=== PATIENT | male | born 2000 | race Caucasian/White ===

== ENCOUNTER 2023-10-07 23:37 | Inpatient (IN) | payer OTHER, SELFPAY ==
[2023-10-07 23:49] VITALS: BP 110/78; BP 150/94; PULSE 110; PULSE 95; RESP 16; TEMP 37.6; O2SAT 98; BMI 31.2
[2023-10-08 00:02] VITALS: RESP 16
[2023-10-08] MEDS: OLANZapine ODT 10 MG TAB.RAPDIS TRANSLINGU ×2 (00:03→14:30)
[2023-10-08] MEDS: LORazepam 1 MG TABLET 2 MG PO ×3 (00:03→20:54)
--- NOTE | 2023-10-08 00:07 | ED.PSYCH ---
HPI - Psych General Chief Complaint: Psychiatric Symptoms Stated Complaint: SEC 12, SI Time Seen by Provider: 10/07/23 23:44 Source: patient and EMS Mode of arrival: EMS Limitations: other (will not cooperate) History of Present Illness HPI Narrative: 23 yo male was at his girlfriends - came in naked after being in her closet for 3 hours and she had to coax him out he was naked and hiding. He is not talking much just makes weird smiling faces and yes or no then takes deep breaths and repeatedly looks over to the corner in the right when he is asked questions. EMS notes he has bipolar and prior SI attempts. MD complaint: other Onset (ago): hour(s) (3) Duration: constant History of same: Yes Relieving factors: none Exacerbating factors: other Associated psychiatric symptoms: none Associated symptoms: denies other symptoms Treatments prior to arrival: none Related Data Allergies Allergy/AdvReac Type Severity Reaction Status Date / Time No Known Allergies Allergy Verified 10/07/23 23:59 Review of Systems Review of Systems: ROS unable to be obtained due to patient not answering questions [facility] Past Medical History Medical History Bipolar 1 disorder Social History Social History Unable to assess alcohol history related to: Refusing to respond Use of substances other than those prescribed or required for medical reasons: Refusing to respond Physical Exam Vital Signs: Vital Signs: Last Vital Signs Temp 99.6 F 10/07/23 23:49 Pulse 95 10/07/23 23:49 Resp 16 10/08/23 00:02 BP 150/94 H 10/07/23 23:49 Pulse Ox 98 10/07/23 23:49 O2 Del Method Room Air 10/07/23 23:49 BMI result Body Mass Index 31.2 Appearance: Alert. will not answer questions nods head says yes or no sometimes, makes strange faces smiles then looks off to the right corner of the room repeatedly. No acute distress. Eyes: Pupils equal, round and reactive to light. ENT: Pharynx normal. atraumatic Neck: Normal inspection. Neck supple. CVS: Normal heart rate and rhythm. Pulses normal. Respiratory: No respiratory distress. Breath sounds normal. Abdomen: Soft and non-tender. Skin: Skin warm and dry. Normal skin color. Normal skin turgor. Extremities: No lower extremity edema. No calf ttp Neuro: will not participate in exam cannot obtain CN exam. moves all extremities equally and bilaterally Course Course Course Narrative: Physician observation started at 1210am Patient placed in physician observation because the patient needed more time for CARE team to assess the need for psych admission. At the time observation was started the patient's vitals were stable, patient is not participating in exam, Neuro: nonfocal, CV RRR, Lungs clear Reevaluation(s) Reevaluation #1: labs pending on sign out to Dr. Willis Medications Administered Discontinued Medications Generic Name Dose Route Start Last Admin Trade Name Freq PRN Reason Stop Dose Admin Lorazepam 2 mg 10/07/23 23:59 10/08/23 00:03 Lorazepam 1 Mg Tablet PO 10/08/23 00:00 2 mg ONCE ONE Administration Olanzapine 10 mg 10/07/23 23:59 10/08/23 00:03 Olanzapine Odt 10 Mg Tab.Rapdis TRANSLINGU 10/08/23 00:00 10 mg ONCE ONE Administration Medical Decision Making Medical Decision Making [facility] Narrative: 23 yo male with hx of bipolar disorder here agitated came in naked after hiding in girlfriends closet at this time will need labs, drug screen PO zyprexa and ativan he appears agitated and to be responding to internal stimuli will medically clear then refer to CARE team. Differential Diagnosis Differential Diagnoses: The differential diagnosis associated with the presentation includes bipolar, psychosis, drug abuse Admission/Observation Consideration of admission/observation: Escalation of care including admission/observation considered observe until seen by CARE team Lab Data [facility] Lab Attestation statement: I reviewed the patient's lab results. Independent Historian Clinical information obtained from an independent historian. History obtained from or confirmed by: EMS Discharge Plan Discharge Clinical Impression: Psychosis Qualifiers: Psychosis type: unspecified psychosis type Qualified Code(s): F29 - Unspecified psychosis not due to a substance or known physiological condition Patient Disposition: Still a Patient Interventions: [place]-Suicide Risk Severity Scale Last Done: 10/07/23 23:58
--- NOTE | 2023-10-08 00:08 | PC.NURSE ---
Pt comes in from [facility] where his girlfriend is residing. Pt is from [facility]. Per EMS, patient was hiding naked in a closet in his girlfriend's dorm for about 3 hours. His girlfriend was attempting to get him out and decided to call 911 to help. Pt arrived to the ED on Sec. 12, naked on EMS stretcher. Pt has bizarre affect, appears to be responding to internal stimuli, consistently looking over to one corner in the room, smirking and making odd gestures. Pt is currently laying on bed in 3, playing with fidget toy. Pt willingly took 2mg Ativan and OTD Zyprexa with some coaching from this RN. Respirations even and unlabored, no apparent distress at this time. Will hold off on blood work until patient is calmer and actions more controlled
[2023-10-08 01:06] LABS: MANUAL DIFF FLAG NO
[2023-10-08 01:08] LABS: Basophils Percent Auto 0.3 % (0-2); Eosinophils Percent Auto 0.2 % (0-4); Hematocrit 41.5 % (42.0-52.0); Hemoglobin 14.3 g/dl (14.0-18.0); Imm Gran Abs Auto 0.03 X10*3/uL (0.00-0.03); Imm Gran Pct Auto 0.3 % (0.0-0.4); Lymphocytes Absolute Auto 2.9 X10*3/uL (1.2-4.9); Lymphocytes Percent Auto 24.9 % (20-40); Mean Corpuscular HGB Conc 34.5 g/dl (31.0-36.0); Mean Corpuscular Hemoglobin 29.3 pg (27.0-33.0); Monocytes Absolute Auto 1.2 X10*3/uL (0.1-1.2); Monocytes Percent Auto 10.2 % (2-11); Neutrophils Absolute Auto 7.5 x10*3/uL (2.0-8.3); Neutrophils Percent Auto 64.1 % (45-73); Platelet Count 310 X10*3/uL (160-400); Red Blood Count 4.88 X10*6/uL (4.60-5.80); Red Cell Distribution Width 12.5 % (11.0-16.0); White Blood Count 11.7 X10*3/uL (4.8-10.8)
--- NOTE | 2023-10-08 01:11 | PC.NURSE ---
per patient his phone number is [phone]
--- NOTE | 2023-10-08 01:12 | PC.NURSE ---
Pt states to this RN I can give a urine sample now . Pt provided with urine cup, walked to bathroom and Alyce, MHT found patient playing in toilet water with cup. Pt redirected back to bedroom. Pt then stated I'm sorry, I am very overstimulated right now . This RN validated his feelings, pt now back in his room resting comfortably, offers no new complaints
[2023-10-08 01:25] LABS: COVID-19 Test Positive (Negative); IDNOW Serial# 6674DD1D
[2023-10-08 01:29] LABS: Anion Gap 18 (12-20); Blood Urea Nitrogen 11 mg/dL (9-16); Calcium 9.9 mg/dL (8.4-10.2); Carbon Dioxide 22 mmol/L (22-29); Chloride 104 mmol/L (96-108); Creatinine Clr Calc Pharmacy 183.9; Estimated Glomerular Filt Rate > 60; Ethanol < 10 mg/dL; Glucose Random 100 mg/dL (60-115); Potassium 3.7 mmol/L (3.3-5.1); Sodium 140 mmol/L (135-145)
--- NOTE | 2023-10-08 01:41 | PC.NURSE ---
pt COVID +. Provided with mask, signage placed on door
[2023-10-08 01:45] LABS: Alanine Aminotransferase 13 U/L (0-40); Albumin Level 4.7 g/dL (3.5-5.0); Alkaline Phosphatase 66 U/L (39-117); Aspartate Amino Transferase 17 U/L (5-37); Bilirubin Direct 0.2 mg/dL (0.0-0.5); Bilirubin Total 0.7 mg/dL (0.0-1.0); Total Protein 7.8 g/dL (6.5-8.0)
[2023-10-08 07:10] LABS: Appearance Urine Clear; Color Urine Dark Yellow; Glucose Urine UA Negative (Negative); Leukocyte Esterase Urine Negative (Negative); Nitrite Urine Negative (Negative); PH 5.5 (5.0-9.0); Specific Gravity - Urine >= 1.030 (1.005-1.025); Urine Blood Negative (Negative); Urine Ketones 15 mg/dL (Negative); Urine Protein Trace mg/dL (Neg-Trace)
[2023-10-08 07:17] LABS: Amphetamine Screen Urine Not Detected (Not Detect); Barbiturates, Urine Not Detected (Not Detect); Benzodiazepines Screen Urine Not Detected (Not Detect); Cannabinoid Screen Urine POSITIVE (Not Detect); Cocaine Screen Urine Not Detected (Not Detect); Fentanyl, urine Not Detected (Not Detect); Opiate Screen Urine Not Detected (Not Detect); Phencyclidine Screen Urine Not Detected (Not Detect)
--- NOTE | 2023-10-08 11:16 | PC.NURSE ---
Pt denies SI/HI/AH/VH at this time. He met with Care Team Teacher Assistant, plan of care to be determined. Pt tore apart the styrofoam container and put it all over his bed. Pt pacing around his room at this time. Will continue to observe.
[2023-10-08 13:36] VITALS: BP 164/77; PULSE 72; RESP 18; TEMP 37; O2SAT 97
--- NOTE | 2023-10-08 16:07 | MHC.EDTECH ---
Patient refused blood work. Patient seen scare and unwilling to drawn blood. I had introduce my self and explain to the patient what I was going to do, and for what the test is for. still the patient refused. I attempted 2 times with nurse.
--- NOTE | 2023-10-08 20:14 | PC.NURSE ---
patient periodically coming out of room, chewing on styrofoam undressing periodically redirectable overall.
[2023-10-08 20:45] VITALS: RESP 20
[2023-10-08] MEDS: OLANZapine 10 MG TABLET PO (20:54)
[2023-10-08 20:59] LABS: Valproate < 12.5 mcg/mL (50.0-100.0)
[2023-10-09 01:46] VITALS: BP 169/86; PULSE 89; RESP 17; TEMP 37.1; O2SAT 96
--- NOTE | 2023-10-09 10:44 | PHA.MEDREC ---
Pharmacy Consult ? Medication Reconciliation Pharmacy has completed the medication reconciliation. Unobtainable per nursing
[2023-10-09] MEDS: Divalproex Sodium 250 MG TABLET.DR 750 MG PO ×2 (11:30→21:10)
[2023-10-09 13:55] LABS: COVID-19 Test Negative (Negative); IDNOW Serial# 58CA691E
--- NOTE | 2023-10-09 14:33 | PM.PSYCN ---
History of Present Illness Date of Service: 10/09/2023 Chief Complaint: SEC 12, SI Reason for Consult: zenia Discussed with referring provider: Yes Sources of Information: patient interviewed, chart reviewed and crisis/core team assessment reviewed HPI Narrative: Joselyn is a 23 year-old male with hx of Bipolar Disorder. Pt was brought via EMS after [employer] student called police reporting pt was in the closet acting in a bizarre manner, naked, masturbating and refusing to leave her dorm. It appears that they had met on bumble this was the first face to face encounter. In the ED, utox positive for cannabinoids. In the ED, pt presents as very disorganized, very poor attention easily track of conversations or questions asked asking to repeat questions. Pt reports he has been communicating with this person and when they met he states we communicate in complex ways, not verbally. Pt making hand gestures and stating you know what I mean. He is holding pieces of paper that he rearranges over and over again. When asked about it, he again states you know what I am doing. He then shows this global technical writer scratch on the wall and states that white brian travel across the room His speech is mostly non sensical but with some disorganized philosophical themes. He asks this global technical writer when did shekhar the [place] painter and body mechanic apprentice . He appears not worried about events leading to this admission. This global technical writer spoke with Dr. Castro- pt's psychiatrist- who reports last visit with pt, Jacky appeared hypomanic. He was recently switched from paliperidone to seroquel due to limited efficacy. He reports at the time his depakote level was in the 80's. Therefore concern that he had only partial response to depakote alone and to paliperidone. Plan was to titrate seroquel 300mg po BID. Other suggestion is to add second mood stabilizer lithium. Pt has hx of gynecomastia and prolactelemia with risperidone. Past Psychiatric History: Inpt: most recent 10/02 OP: Dr. Marcelino Castro ([phone]) Past medication trials: risperidone (high prolactin levels), paliperidone (partially effective), depakote Medical Evaluation Reviewed: Yes [facility] Medical History Bipolar 1 disorder Diagnostics Vital Signs (24Hr): Vital Signs - 24 hr 10/08/23 20:45 10/09/23 01:46 Temperature 98.7 F Pulse Rate 89 Respiratory Rate 20 17 Blood Pressure 169/86 H Pulse Oximetry 96 Oxygen Delivery Method Room Air BMI result Body Mass Index 31.2 Labs 10/08/23 01:00 10/08/23 01:00 Labs: Laboratory Results - last 48 hr 10/08/23 10/08/23 10/08/23 01:00 07:01 20:40 WBC 11.7 H RBC 4.88 Hgb 14.3 Hct 41.5 L MCV 85.0 MCH 29.3 MCHC 34.5 RDW 12.5 Plt Count 310 MPV 9.0 L Immature Gran % (Auto) 0.3 Neut % (Auto) 64.1 Lymph % (Auto) 24.9 [place] % (Auto) 10.2 Eos % (Auto) 0.2 Baso % (Auto) 0.3 Lymph # (Auto) 2.9 [place] # (Auto) 1.2 Eos # (Auto) 0.0 Baso # (Auto) 0.0 Abs Immat Gran (auto) 0.03 Absolute Neuts (auto) 7.5 Absolute Nucleated RBC 0.000 Nucleated RBC % (auto) 0.0 Sodium 140 Potassium 3.7 Chloride 104 Carbon Dioxide 22 Anion Gap 18 BUN 11 Creatinine 0.78 Estim Creat Clear Calc 183.9 Estimated GFR > 60 Random Glucose 100 Calcium 9.9 Total Bilirubin 0.7 Direct Bilirubin 0.2 AST 17 ALT 13 Alkaline Phosphatase 66 Total Protein 7.8 Albumin 4.7 Urine Color Dark Yellow Urine Appearance Clear Urine pH 5.5 Ur Specific [place] >= 1.030 H Urine Protein Trace Urine Glucose (UA) Negative Urine Ketones 15 Urine Blood Negative Urine Nitrite Negative Ur Leukocyte Esterase Negative Urine Opiates Screen Not Detected Urine Fentanyl Screen Not Detected Ur Barbiturates Screen Not Detected Valproic Acid < 12.5 L Ur Phencyclidine Scrn Not Detected Ur Amphetamines Screen Not Detected U Benzodiazepines Scrn Not Detected Urine Cocaine Screen Not Detected U Marijuana (THC) Screen POSITIVE H Ethyl Alcohol < 10 COVID-19 ([facility]) Positive A COVID-19 Clin Com See Note 10/09/23 13:26 WBC RBC Hgb Hct MCV MCH MCHC RDW Plt Count MPV Immature Gran % (Auto) Neut % (Auto) Lymph % (Auto) [place] % (Auto) Eos % (Auto) Baso % (Auto) Lymph # (Auto) [place] # (Auto) Eos # (Auto) Baso # (Auto) Abs Immat Gran (auto) Absolute Neuts (auto) Absolute Nucleated RBC Nucleated RBC % (auto) Sodium Potassium Chloride Carbon Dioxide Anion Gap BUN Creatinine Estim Creat Clear Calc Estimated GFR Random Glucose Calcium Total Bilirubin Direct Bilirubin AST ALT Alkaline Phosphatase Total Protein Albumin Urine Color Urine Appearance Urine pH Ur Specific [place] Urine Protein Urine Glucose (UA) Urine Ketones Urine Blood Urine Nitrite Ur Leukocyte Esterase Urine Opiates Screen Urine Fentanyl Screen Ur Barbiturates Screen Valproic Acid Ur Phencyclidine Scrn Ur Amphetamines Screen U Benzodiazepines Scrn Urine Cocaine Screen U Marijuana (THC) Screen Ethyl Alcohol COVID-19 ([facility]) Negative COVID-19 Clin Com See Note Mental Status Exam Mental Status Exam Narrative: Appearance: wearing hospital clothing, poor hygiene, in NAD Behavior: overly familiar at times, then guarded Psychomotor: no overt agitation or retardation noted Speech: mostly clear, long pauses at times, spontaneous TP: disorganized with loose association at times TC: mystical/philosophical delusional themes Mood: good, I'm fine Affect: internally preoccupied, staring through this global technical writer at times SI: denies HI: denies VH/AH: internally preoccupied Delusions: philosophical/latter day delusions Insight/judgment: impaired x 2 Memory/cog: alert, oriented to place, not situation, very poor attention due to fact that he is internally preoccupied Medications Medications Current Medications Divalproex Sodium (Divalproex Sodium 250 Mg Arun.) 750 mg PO BID ALPESH Last Admin: 10/09/23 11:30 Dose: 750 mg Allergies Allergies Allergy/AdvReac Type Severity Reaction Status Date / Time No Known Allergies Allergy Verified 10/07/23 23:59 Assessment & Plan Assessment & Plan (1) Bipolar 1 disorder, manic, moderate: Status: Acute Code(s): F31.12 - Bipolar disorder, current episode manic without psychotic features, moderate Plan Mr. Alves is a 23 year-old male with hx of Bipolar Disorder was brought via EMS after police was called due to pt being at student's dorm, naked masturbating, refusing to leave. Utox positive for cannabinoids. In the ED, pt;s behaviors is very disorganized, no hypersexual behaviors, but some delusional themes of latter day/philosophical nature, where pt thinks there are a lot of things connected and messages. He also believes he is communicating with others including this global technical writer in a non verbal way and that I understand what is really going on. We discussed risks, benefits and alternative treatment options, restart depakote. Spoke with pt's psychiatrist, Dr. Castro who ahd planned to titrate seroquel to more therapeutic level, but also suggested trying another antipsychotic not paliperidone as it was ineffective nor risperidone as pt had high prolactin levels. he also suggested adding lithium as recently levels were in the 80's and pt was still showing signs of hypomania (now he has zenia). PLAN 1. Pt requires inpt level of care for safety containment and stabilization. Sect 12a. 2. depakote 750mg po BID. d/c risperidone. start low dose of haldol 5mg po BID. Total time managing care of this patient today ____ minutes.
[2023-10-09] MEDS: risperiDONE 1 MG TABLET PO (15:41)
[2023-10-09] MEDS: LORazepam 1 MG TABLET PO ×2 (15:41→21:10)
[2023-10-09 15:57] VITALS: RESP 18
--- NOTE | 2023-10-09 17:42 | PC.NURSE ---
Jacky was OOB this shift and observed in his room pacing, undressing and redressing and eating bits of paper. Covid test obtained and results negative. Jacky is currently out of his room in the milieu and has been engaging with staff. He is requiring multiple redirections to keep his top on. Jacky is discussing comic books and movies with staff. Adherent with offered medications this shift. Depakote given this AM and risperidone and Ativan given this afternoon. Appetite fair. Jacky still appearing very disorganized.
--- NOTE | 2023-10-09 18:50 | PC.NURSE ---
Jacky was pacing and continuing to enter other patients rooms. Easy to redirect but coninues to enter other patients rooms and continues to take his shirt off. Patient placed on 1:1 and rib cutter alerted.
--- NOTE | 2023-10-09 19:02 | PC.NURSE ---
patient ambulating ad yong in milieu, appears in no distress, appears distant at times, will maintain on 1:1 status for safety.
[2023-10-09 20:28] VITALS: RESP 20
[2023-10-09] MEDS: OLANZapine ODT 10 MG TAB.RAPDIS TRANSLINGU (21:10)
[2023-10-09] MEDS: HaloperidoL 5 MG TABLET PO (21:10)
--- NOTE | 2023-10-09 21:25 | PC.NURSE ---
patient was approached with HS meds times two and client would spit them out, pretend to swallow meds and spit in cup, perhaps 30-45 minutes later patient had two teary eyed brief sessions of crying at unknown stimulus, patient was reassyred and soon thereafter approached with newly ordered meds and prn medication. patient took them, periodically has moments when he seems clearer (answered about glad you didnt get in trouble at [facility] ) and then gets into his own cycles, repeating what time did (some telugu name) ? and some catch phrases dial it back . periodically requiring redirects about entering nurses station
--- NOTE | 2023-10-09 21:58 | PC.NURSE ---
patient verbally rambling and tangential but seems more relaxed
--- NOTE | 2023-10-10 08:41 | ECG_ITS ---
Test Reason : QTC CHECK Blood Pressure : / mmHG Vent. Rate : 082 BPM Atrial Rate : 082 BPM P-R Int : 138 ms QRS Dur : 092 ms QT Int : 372 ms P-R-T Axes : 050 081 044 degrees QTc Int : 434 ms Sinus rhythm with marked sinus arrhythmia Otherwise normal ECG No previous ECGs available Referred By: Austen Solano Electronically Signed By:Jomar Feng
[2023-10-10] MEDS: LORazepam 1 MG TABLET PO ×2 (09:18→20:47)
[2023-10-10] MEDS: Divalproex Sodium 250 MG TABLET.DR 750 MG PO ×2 (09:18→17:32)
[2023-10-10] MEDS: HaloperidoL 5 MG TABLET PO ×2 (09:18→20:46)
--- NOTE | 2023-10-10 09:58 | PC.NURSE ---
Admissions made aware, unable to obtain EKG as pt is restless and unable to sit still for EKG.
--- NOTE | 2023-10-10 11:35 | PC.NURSE ---
Patient took medications without incident. Pt noted to be intermittently eating pieces of paper towel. Patient has been pacing around unit, currently watching TV in common area. 1:1 sitter continues for impulsivity. Awaiting bed placement on M3.
[2023-10-10 11:58] VITALS: BP 160/82; PULSE 98; RESP 18; TEMP 36.1; O2SAT 95
--- NOTE | 2023-10-10 15:09 | PC.NURSE ---
Pt was admitted to M3 at 1158 from the [facility] on a CV for treatment of Bipolar 1 disorder with symptoms of zenia. He presented to the ED secondary to visiting a friends dorm room at [facility] and masturbating for ~3 hours in the closet and not coming out. His friend went to the neighbors and campus security escorted him out. He is alert and oriented x 4 and cooperative. He is disorganized in speech and thought content but pleasant upon approach. He presents as bright and affect is elated. He denies SI/HI/AVH and depression/anxiety but appears to be internally responding at times. He has been witnessed to be putting paper towels in the sinks/toilets, he has been redirected but appears to need continuous redirection. He denies issues with sleep or appetite and reports no physical complaints at this time. His toxicology screen came back positive for marijuana but pt reports I only drank a white tea with my good diane and it was the best time of my life. He does not disclose last use. He reports utilizing a vape daily less than I probably should but declined NRT at this time. He was placed on a 5 minute check for safety.
[2023-10-10] MEDS: LORazepam 1 MG TABLET 2 MG PO (17:32)
[2023-10-10] MEDS: OLANZapine ODT 10 MG TAB.RAPDIS TRANSLINGU (17:32)
--- NOTE | 2023-10-10 18:13 | PC.NURSE ---
Pt given nightitme dose of Depakote early per Cindy Pace DOORPERSON OR LUGGAGE PORTER
--- NOTE | 2023-10-10 18:28 | PC.NURSE ---
Pt disorganized, constantly undressing and requiring redirection, tearing and eating paper/miscellaneous paper objects (playing cards etc.), putting crayons in coffee in cups. He has been redirected multiple times and becomes tearful and then continues with this behavior. Cindy Pace PHYSICIAN'S ASSISTANT aware.
[2023-10-10 19:42] VITALS: BP 141/94; PULSE 97; RESP 18; TEMP 36.3; O2SAT 97
[2023-10-10] MEDS: hydrOXYzine HCL 25 MG TABLET PO (20:47)
[2023-10-11 08:20] VITALS: BP 167/79; PULSE 99; RESP 16; TEMP 36.2; O2SAT 95
[2023-10-11 09:02] LABS: Alanine Aminotransferase 13 U/L (0-40); Albumin Level 4.5 g/dL (3.5-5.0); Alkaline Phosphatase 64 U/L (39-117); Anion Gap 16 (12-20); Aspartate Amino Transferase 16 U/L (5-37); Bilirubin Total 0.9 mg/dL (0.0-1.0); Blood Urea Nitrogen 11 mg/dL (9-16); Carbon Dioxide 25 mmol/L (22-29); Chloride 102 mmol/L (96-108); Cholesterol 152 mg/dL (<200); Creatinine Clr Calc Pharmacy 196.5; Estimated Glomerular Filt Rate > 60; Glucose Fasting 80 mg/dL (60-99); HDL Cholesterol 45 mg/dL (>40); LDL Cholesterol Calculated 92 mg/dL (<100); Sodium 139 mmol/L (135-145); Total Protein 7.6 g/dL (6.5-8.0); Triglycerides 79 mg/dL (<150)
[2023-10-11] MEDS: Divalproex Sodium 250 MG TABLET.DR 750 MG PO ×2 (09:05→21:17)
[2023-10-11] MEDS: LORazepam 1 MG TABLET PO ×2 (09:05→21:18)
[2023-10-11] MEDS: HaloperidoL 5 MG TABLET PO ×2 (09:05→21:18)
--- NOTE | 2023-10-11 09:17 | P.HPPS_ITS ---
HPI Date of Service: 10/11/23 Chief Complaint: crisis Sources of Information: patient interviewed, chart reviewed and crisis/core team assessment reviewed HPI Subjective Notes: Burk Warning and Conditional Voluntary Narrative: Patient is a 23 year old male with hx of Bipolar d/o who presented to [facility] via EMS from [facility] after visiting a friend and presenting manic and displaying sexualized behaviors in the closet. Per crisis report, Pt met a girl on the dating tyree [employer] and went to her dorm at [facility]. Pt was naked and masturbating in her closer for three hours, campus police were called. pt thought process is circular and not able to engage in meaningful conversation during interview. Restless. He did not report issues with sleeping or appetite. no hx of suicide attempts. denied SI/HI/VH/AH. During admission assessment, pt presents disorganized, tangential. When T/W asked patient what brought him into the hospital, pt stated, I was playing backProperty Partner and she wanted to play cards. Have you seen the Punchh? When do you think Thor came out? . Staff observed patient dumping his medications into his cup of water and began playing with the pills prior to taking them' chewing on playing cards, trying to undress in unit hallway, rubbing butter on body. Patient did report he stopped taking his medications on his birthday because they were making me not feel right . Pt was unable to elaborate what this meant. Pt was alert and oriented to person, place and situation. He did express that he wanted treatment. denies SI/HI/VH/AH. Pt is on 1:1 safety checks. Past Psychiatric History: Inpt: most recent 10/02 hx of 5 inpatient hospitalizations. OP: Dr. Marcelino Castro ([phone]) [facility] counseling. Past medication trials: risperidone (high prolactin levels), paliperidone (partially effective), depakote Medical Evaluation Reviewed: Yes [facility] Medical History Bipolar 1 disorder Family History: Mother- bipolar d/o Social History: Single, lives in dorms at [facility]. Substance History: utox positive for marijuana Trauma History: unable to obtain Diagnostics Vital Signs (24Hr): Vital Signs - 24 hr 10/10/23 11:58 10/10/23 19:42 Temperature 97.0 F 97.3 F Pulse Rate 98 97 Respiratory Rate 18 18 Blood Pressure 160/82 H 141/94 H Pulse Oximetry 95 97 Oxygen Delivery Method Room Air Room Air BMI result Body Mass Index 31.2 Labs 10/08/23 01:00 10/11/23 08:12 Labs: Laboratory Results - last 48 hr 10/09/23 10/11/23 13:26 08:12 Sodium 139 Potassium 4.0 Chloride 102 Carbon Dioxide 25 Anion Gap 16 BUN 11 Creatinine 0.73 Estim Creat Clear Calc 196.5 Estimated GFR > 60 Fasting Glucose 80 Calcium 10.0 Total Bilirubin 0.9 AST 16 ALT 13 Alkaline Phosphatase 64 Total Protein 7.6 Albumin 4.5 Triglycerides 79 Cholesterol 152 LDL Cholesterol, Calc 92 HDL Cholesterol 45 COVID-19 ([facility]) Negative COVID-19 Clin Com See Note Meds/Allergies Meds Home Medications Medication Instructions Recorded Confirmed Type Unobtainable 10/08/23 10/08/23 History Allergies Allergies Allergy/AdvReac Type Severity Reaction Status Date / Time sesame oil Allergy Anaphylaxis Verified 10/10/23 19:24 sesame seed Allergy Anaphylaxis Verified 10/10/23 19:24 tree nut Allergy Anaphylaxis Verified 10/10/23 19:24 Mental Status Exam Mental Status Exam Narrative: Pt is alert and oriented; behavior is disorganized; dressed in hospital attire; mood is described as good ; eye contact appropriate; Speech is normal rate, volume and prosody and not pressured; tangential,disorganized, denies SI/HI/VH/AH. Assessment & Plan Assessment & Plan (1) Bipolar 1 disorder, manic, moderate: Status: Acute Code(s): F31.12 - Bipolar disorder, current episode manic without psychotic features, moderate Plan Patient is a 23 year old male with hx of Bipolar d/o who presented to [facility] via EMS from [facility] after visiting a friend and presenting manic and displaying sexualized behaviors in the closet. Plan: CV 1:1 Obtain collateral Continue Depakote 750mg PO BID Ativan 1mg PO BID Haldol 5mg PO BID discharge planning labs Patient educated on: diagnosis and medication risk/benefits Informed Consent: understands and further education needed Reason for continued inpatient stay Substantial Risk for: rapid decompensation and med/psych decompensation Statement Statement: I have reviewed the history and physical and performed a pertinent examination on my patient. No changes have occurred unless specified. If the History and Physical was not performed prior to admission, the Hospitalist's service will be consulted for completing the admission physical. Time Spent With Patient Time: Total time managing care of this patient today _60___ minutes.
[2023-10-11 20:05] VITALS: BP 157/68; PULSE 91; RESP 16; TEMP 36.4; O2SAT 96
[2023-10-11 20:10] VITALS: BP 157/68; PULSE 91; RESP 16; TEMP 36.4; O2SAT 96
[2023-10-12 08:25] VITALS: BP 121/58; PULSE 80; TEMP 36.7; O2SAT 94
[2023-10-12] MEDS: Divalproex Sodium 250 MG TABLET.DR 750 MG PO ×2 (09:16→21:13)
[2023-10-12] MEDS: LORazepam 1 MG TABLET PO ×2 (09:17→21:13)
[2023-10-12] MEDS: HaloperidoL 5 MG TABLET PO ×2 (09:17→21:13)
--- NOTE | 2023-10-12 17:46 | HO.PSYCHPN ---
Subjective Subjective Date of Service: 10/12/23 Reason For Visit: crisis Interim History: Patient's behavior remains disorganized. He is paranoid about medications and inspects them repeatedly or licks them before taking them. He continues on 1:1 as he sometimes tries to expose himself. Per nursing put crayons in a cup and tried to put it the microwave to melt the crayons. Redirectable.Denies SI. Appears preoccupied. Review of Systems Review of Systems ROS unable to be obtained due to patient not answering questions Constitutional: Reports as per HPI Eyes: Reports as per HPI Reports as per HPI Cardiovascular: Reports as per HPI Respiratory: Reports as per HPI Gastrointestinal: Reports as per HPI Genitourinary: Reports as per HPI Musculoskeletal: Reports as per HPI Skin/Breast: Reports as per HPI Reports as per HPI Psychiatric: Reports as per HPI Endocrine: Reports as per HPI Hematologic/Lymphatic: Reports as per HPI Allergic/Immunologic: Reports as per HPI Mental Status Exam Mental Status Exam Narrative: Pt is alert and oriented; behavior is disorganized; dressed in hospital attire; mood is described as good ; eye contact appropriate; Speech is normal rate, volume and prosody and not pressured; tangential,disorganized, denies SI/HI/VH/AH. Diagnostics Vital Signs (24Hr): Vital Signs - 24 hr 10/11/23 20:05 10/11/23 20:10 10/12/23 08:25 Temperature 97.5 F 97.5 F 98.1 F Pulse Rate 91 91 80 Respiratory Rate 16 16 Blood Pressure 157/68 H 157/68 H 121/58 L Pulse Oximetry 96 96 94 Oxygen Delivery Method Room Air Room Air Room Air BMI result Body Mass Index 31.2 Labs 10/08/23 01:00 10/11/23 08:12 Labs: Laboratory Results - last 48 hr 10/11/23 08:12 Sodium 139 Potassium 4.0 Chloride 102 Carbon Dioxide 25 Anion Gap 16 BUN 11 Creatinine 0.73 Estim Creat Clear Calc 196.5 Estimated GFR > 60 Fasting Glucose 80 Calcium 10.0 Total Bilirubin 0.9 AST 16 ALT 13 Alkaline Phosphatase 64 Total Protein 7.6 Albumin 4.5 Triglycerides 79 Cholesterol 152 LDL Cholesterol, Calc 92 HDL Cholesterol 45 Medications Medications Current Medications Acetaminophen (Acetaminophen 325 Mg Tablet) 650 mg PO Q6H PRN PRN Reason: Headache/Pain Mild Scale (1-3) Al Hydroxide/Mg Hydroxide (Magnesium Hydrox/Alum Hydrox 30 Ml Oral.Susp) 30 ml PO Q6H PRN PRN Reason: Heartburn/Nausea Divalproex Sodium (Divalproex Sodium 250 Mg Tablet.Dr) 750 mg PO BID [facility] Last Admin: 10/12/23 09:16 Dose: 750 mg Haloperidol (Haloperidol 5 Mg Tablet) 5 mg PO BID [facility] Last Admin: 10/12/23 09:17 Dose: 5 mg Hydroxyzine HCl (Hydroxyzine Hcl 25 Mg Tablet) 25 mg PO Q6H PRN PRN Reason: Anxiety Last Admin: 10/10/23 20:47 Dose: 25 mg Lorazepam (Lorazepam 1 Mg Tablet) 1 mg PO BID [facility] Last Admin: 10/12/23 09:17 Dose: 1 mg Magnesium Hydroxide (Milk Of Magnesia 30 Ml Oral.Susp) 30 ml PO DAILY PRN PRN Reason: Constipation Olanzapine (Olanzapine Odt 10 Mg Tab.Rapdis) 10 mg TRANSLINGU Q6H PRN PRN Reason: agitation Last Admin: 10/10/23 17:32 Dose: 10 mg Trazodone HCl (Trazodone Hcl 50 Mg Tablet) 50 mg PO BEDTIME MRX1 PRN PRN Reason: Insomnia Allergies Allergies Allergy/AdvReac Type Severity Reaction Status Date / Time sesame oil Allergy Anaphylaxis Verified 10/10/23 19:24 sesame seed Allergy Anaphylaxis Verified 10/10/23 19:24 tree nut Allergy Anaphylaxis Verified 10/10/23 19:24 Assessment & Plan Assessment & Plan (1) Bipolar 1 disorder, manic, moderate: Status: Acute Code(s): F31.12 - Bipolar disorder, current episode manic without psychotic features, moderate Plan Patient is a 23 year old male with hx of Bipolar d/o who presented to [facility] via EMS from [facility] after visiting a friend and presenting manic and displaying sexualized behaviors in the closet. Plan: CV 1:1 Obtain collateral Continue Depakote 750mg PO BID Ativan 1mg PO BID Haldol 5mg PO BID discharge planning labs 10/12: Continue current plan. Reason for continued inpatient stay Substantial Risk for: inability to function and rapid decompensation Time Spent With Patient Time: Total time managing care of this patient today ____ minutes.
[2023-10-12 20:23] VITALS: BP 162/77; PULSE 88; RESP 16; TEMP 36.9; O2SAT 96
[2023-10-13 07:10] VITALS: BP 135/64; PULSE 77; RESP 16; TEMP 36.1; O2SAT 99
[2023-10-13] MEDS: LORazepam 1 MG TABLET PO ×2 (09:12→22:56)
[2023-10-13] MEDS: Divalproex Sodium 250 MG TABLET.DR 750 MG PO ×2 (09:12→22:56)
[2023-10-13] MEDS: HaloperidoL 5 MG TABLET PO ×2 (09:13→22:56)
[2023-10-13] MEDS: hydrOXYzine HCL 25 MG TABLET PO (12:32)
--- NOTE | 2023-10-13 16:51 | HO.PSYCHPN ---
Subjective Subjective Date of Service: 10/13/23 Reason For Visit: crisis Interim History: Patient's behavior remains disorganized. During shower yesterday he tried to put towels in the drain. He tried to eat soap. He ripped up paper towels and tried to eat them. He says to this examiner sometimes you see the light... He then makes a [place] with his fingers and looks through it. He is blunted, slow to respond. Loose associations. Illogical. He continues on 1:1 as he sometimes tries to expose himself. Denies SI. Appears internally preoccupied. Review of Systems Review of Systems ROS unable to be obtained due to patient not answering questions Constitutional: Reports as per HPI Eyes: Reports as per HPI Reports as per HPI Cardiovascular: Reports as per HPI Respiratory: Reports as per HPI Gastrointestinal: Reports as per HPI Genitourinary: Reports as per HPI Musculoskeletal: Reports as per HPI Skin/Breast: Reports as per HPI Reports as per HPI Psychiatric: Reports as per HPI Endocrine: Reports as per HPI Hematologic/Lymphatic: Reports as per HPI Allergic/Immunologic: Reports as per HPI Mental Status Exam Mental Status Exam Narrative: Pt is alert and oriented; behavior is disorganized; dressed in hospital attire; mood is described as good ; eye contact appropriate; Speech is normal rate, volume and prosody and not pressured; tangential,disorganized, denies SI/HI/VH/AH. Diagnostics Vital Signs (24Hr): Vital Signs - 24 hr 10/12/23 20:23 10/13/23 07:10 Temperature 98.4 F 97.0 F Pulse Rate 88 77 Respiratory Rate 16 16 Blood Pressure 162/77 H 135/64 Pulse Oximetry 96 99 Oxygen Delivery Method Room Air Room Air BMI result Body Mass Index 31.2 Labs 10/08/23 01:00 10/11/23 08:12 Medications Medications Current Medications Acetaminophen (Acetaminophen 325 Mg Tablet) 650 mg PO Q6H PRN PRN Reason: Headache/Pain Mild Scale (1-3) Al Hydroxide/Mg Hydroxide (Magnesium Hydrox/Alum Hydrox 30 Ml Oral.Susp) 30 ml PO Q6H PRN PRN Reason: Heartburn/Nausea Divalproex Sodium (Divalproex Sodium 250 Mg Tablet.) 750 mg PO BID [facility] Last Admin: 10/13/23 09:12 Dose: 750 mg Haloperidol (Haloperidol 5 Mg Tablet) 5 mg PO BID [facility] Last Admin: 10/13/23 09:13 Dose: 5 mg Hydroxyzine HCl (Hydroxyzine Hcl 25 Mg Tablet) 25 mg PO Q6H PRN PRN Reason: Anxiety Last Admin: 10/13/23 12:32 Dose: 25 mg Lorazepam (Lorazepam 1 Mg Tablet) 1 mg PO BID [facility] Last Admin: 10/13/23 09:12 Dose: 1 mg Magnesium Hydroxide (Milk Of Magnesia 30 Ml Oral.Susp) 30 ml PO DAILY PRN PRN Reason: Constipation Olanzapine (Olanzapine Odt 10 Mg Tab.Rapdis) 10 mg TRANSLINGU Q6H PRN PRN Reason: agitation Last Admin: 10/10/23 17:32 Dose: 10 mg Trazodone HCl (Trazodone Hcl 50 Mg Tablet) 50 mg PO BEDTIME MRX1 PRN PRN Reason: Insomnia Allergies Allergies Allergy/AdvReac Type Severity Reaction Status Date / Time sesame oil Allergy Anaphylaxis Verified 10/10/23 19:24 sesame seed Allergy Anaphylaxis Verified 10/10/23 19:24 tree nut Allergy Anaphylaxis Verified 10/10/23 19:24 Assessment & Plan Assessment & Plan (1) Bipolar 1 disorder, manic, moderate: Status: Acute Code(s): F31.12 - Bipolar disorder, current episode manic without psychotic features, moderate Plan Patient is a 23 year old male with hx of Bipolar d/o who presented to [facility] via EMS from [facility] after visiting a friend and presenting manic and displaying sexualized behaviors in the closet. Plan: CV 1:1 Obtain collateral Continue Depakote 750mg PO BID Ativan 1mg PO BID Haldol 5mg PO BID discharge planning labs 10/12: Continue current plan. 10/13: Continue current management and treatment plan. Reason for continued inpatient stay Substantial Risk for: inability to function and rapid decompensation Time Spent With Patient Time: Total time managing care of this patient today ____ minutes.
[2023-10-13 19:52] VITALS: BP 160/84; PULSE 83; RESP 16; TEMP 36.9; O2SAT 98
[2023-10-14 07:35] VITALS: BP 136/93; PULSE 78; RESP 16; TEMP 36.3; O2SAT 99
[2023-10-14] MEDS: Divalproex Sodium 250 MG TABLET.DR 750 MG PO (08:41)
[2023-10-14] MEDS: LORazepam 1 MG TABLET PO (08:42)
--- NOTE | 2023-10-14 08:56 | P.PNPSI_ITS ---
Subjective Subjective Date of Service: 10/14/23 Reason For Visit: crisis Subjective Notes: Conditional Voluntary Interim History: Reviewed with . On 1:1 safety checks. Disorganized. Wearing multiple layers of clothing, some clothing on backwards. Staffed notified T/W, pt walked into shower room, did not disrobe, however urinated and walked out of shower room without bathing self despite encouragement from staff. medication compliant. Pt retracted 3 day. Valporic acid 107.5 today; decreased dose to Depakote 500mg PO BID. DC Haldol and Ativan Start: Seroquel 50mg PO BID Cogentin 1mg PO bedtime Medication Compliance: Yes Side effects from medications: No Attending Groups: No Review of Systems Constitutional: Reports as per HPI Eyes: Reports as per HPI Reports as per HPI Cardiovascular: Reports as per HPI Respiratory: Reports as per HPI Gastrointestinal: Reports as per HPI Genitourinary: Reports as per HPI Musculoskeletal: Reports as per HPI Skin/Breast: Reports as per HPI Reports as per HPI Psychiatric: Reports as per HPI Endocrine: Reports as per HPI Hematologic/Lymphatic: Reports as per HPI Allergic/Immunologic: Reports as per HPI Mental Status Exam Mental Status Exam Narrative: Pt is alert and oriented; behavior is disorganized; dishelveled, dressed in multiple layers of clothing with some items on backwards; mood is described as good ; eye contact appropriate; Speech is normal rate, volume and prosody and not pressured; tangential,disorganized, denies SI/HI/VH/AH. Diagnostics Vital Signs (24Hr): Vital Signs - 24 hr 10/13/23 19:52 10/14/23 07:35 Temperature 98.4 F 97.4 F Pulse Rate 83 78 Respiratory Rate 16 16 Blood Pressure 160/84 H 136/93 H Pulse Oximetry 98 99 Oxygen Delivery Method Room Air Room Air BMI result Body Mass Index 31.2 Labs 10/08/23 01:00 10/11/23 08:12 Medications Medications Current Medications Acetaminophen (Acetaminophen 325 Mg Tablet) 650 mg PO Q6H PRN PRN Reason: Headache/Pain Mild Scale (1-3) Al Hydroxide/Mg Hydroxide (Magnesium Hydrox/Alum Hydrox 30 Ml Oral.Susp) 30 ml PO Q6H PRN PRN Reason: Heartburn/Nausea Divalproex Sodium (Divalproex Sodium 250 Mg Tablet.) 750 mg PO BID [facility] Last Admin: 10/14/23 08:41 Dose: 750 mg Haloperidol (Haloperidol 5 Mg Tablet) 5 mg PO BID [facility] Last Admin: 10/14/23 08:46 Dose: Not Given Hydroxyzine HCl (Hydroxyzine Hcl 25 Mg Tablet) 25 mg PO Q6H PRN PRN Reason: Anxiety Last Admin: 10/13/23 12:32 Dose: 25 mg Lorazepam (Lorazepam 1 Mg Tablet) 1 mg PO BID [facility] Last Admin: 10/14/23 08:42 Dose: 1 mg Magnesium Hydroxide (Milk Of Magnesia 30 Ml Oral.Susp) 30 ml PO DAILY PRN PRN Reason: Constipation Olanzapine (Olanzapine Odt 10 Mg Tab.Rapdis) 10 mg TRANSLINGU Q6H PRN PRN Reason: agitation Last Admin: 10/10/23 17:32 Dose: 10 mg Trazodone HCl (Trazodone Hcl 50 Mg Tablet) 50 mg PO BEDTIME MRX1 PRN PRN Reason: Insomnia Allergies Allergies Allergy/AdvReac Type Severity Reaction Status Date / Time sesame oil Allergy Anaphylaxis Verified 10/10/23 19:24 sesame seed Allergy Anaphylaxis Verified 10/10/23 19:24 tree nut Allergy Anaphylaxis Verified 10/10/23 19:24 Assessment & Plan Assessment & Plan (1) Bipolar 1 disorder, manic, moderate: Status: Acute Code(s): F31.12 - Bipolar disorder, current episode manic without psychotic features, moderate Plan Patient is a 23 year old male with hx of Bipolar d/o who presented [place] [facility] [place] from [facility] after visiting a friend and presenting manic and displaying sexualized behaviors in the closet. Plan: CV 1:1 Obtain collateral Continue Depakote 750mg PO BID Ativan 1mg PO BID Haldol 5mg PO BID discharge planning labs 10/12: Continue current plan. 10/13: Continue current management and treatment plan. 10/14: On 1:1 safety checks. Disorganized. Wearing multiple layers of clothing, some clothing on backwards. Staffed notified T/W, pt walked into shower room, did not disrobe, however urinated and walked out of shower room without bathing self despite encouragement from staff. medication compliant. Pt retracted 3 day. Valporic acid 107.5 today; decreased dose from 750mg PO BID to Depakote 500mg PO BID. DC Haldol and Ativan Start: Seroquel 50mg PO BID Cogentin 1mg PO bedtime Patient educated on: diagnosis and medication risk/benefits Informed Consent: understands and further education needed Reason for continued inpatient stay Substantial Risk for: inability to function, rapid decompensation and med/psych decompensation Time Spent With Patient Time: Total time managing care of this patient today _20___ minutes.
[2023-10-14] MEDS: QUEtiapine Fumarate 50 MG TABLET PO ×2 (11:08→22:42)
[2023-10-14 13:22] LABS: Ammonia 42 umol/L (13-55)
[2023-10-14 13:29] LABS: Valproate 107.5 mcg/mL (50.0-100.0)
[2023-10-14 13:30] LABS: Alanine Aminotransferase 12 U/L (0-40); Albumin Level 4.3 g/dL (3.5-5.0); Alkaline Phosphatase 60 U/L (39-117); Aspartate Amino Transferase 15 U/L (5-37); Bilirubin Direct 0.1 mg/dL (0.0-0.5); Bilirubin Total 0.3 mg/dL (0.0-1.0); Total Protein 7.2 g/dL (6.5-8.0)
[2023-10-14 19:48] VITALS: BP 170/88; PULSE 88; RESP 16; TEMP 36.9; O2SAT 98
[2023-10-14] MEDS: Divalproex Sodium 500 MG TABLET.DR PO (22:42)
[2023-10-15 09:05] VITALS: BP 166/90; PULSE 85; RESP 18; TEMP 36.7; O2SAT 95
[2023-10-15] MEDS: Divalproex Sodium 500 MG TABLET.DR PO (09:05)
[2023-10-15] MEDS: QUEtiapine Fumarate 50 MG TABLET PO (09:05)
--- NOTE | 2023-10-15 17:20 | P.PNPSI_ITS ---
Subjective Subjective Date of Service: 10/15/23 Reason For Visit: crisis Interim History: Met with patient; discussed with team; reviewed chart Patient pleasant; still disorganized in speech behavior but staff agree he is doing better. Still struggling with sleep though did sleep a little better last night; attended some groups today. On approach patient says he is great and thinks keno writer / runner for meeting with him. He then explains why he is great saying I like my room... I like my bed... I like these ellis... I like that[points to vent]... Patient talked a little bit about the incident leading up to this admission and said that he got dressed in the proper fashion before [he] went to meet a girl... Patient says that he has been on Depakote in the past; he agrees he stopped taking it but is unable to give any kind of timeline. Discussed medication management and patient agrees to change his outpatient dose to make it long- acting and put it at bedtime to help with insomnia; he also asks for Seroquel to be put at bedtime since he is having trouble sleeping. Mental Status Exam Mental Status Exam Narrative: Pt is alert and oriented; behavior is cooperative, friendly, calm but also odd; intermittently disorganized but improved; patient is not in distress; dressed in hospital attire with improved hygiene; mood is described as great and affect congruent, smiling; eye contact appropriate; Speech is normal rate, volume, a little bit of an odd prosody; not pressured; no psychomotor agitation/retardation present; thought process is goal oriented but also distracted and [id number] disorganized; Thought content is on various things that come to mind; tx; no delusional content expressed; denies any SI/HI. Perhaps some internal preoccupation Patients insight and judgment impaired but somewhat improved Diagnostics Vital Signs (24Hr): Vital Signs - 24 hr 10/14/23 19:48 10/15/23 09:05 Temperature 98.5 F 98.1 F Pulse Rate 88 85 Respiratory Rate 16 18 Blood Pressure 170/88 H 166/90 H Pulse Oximetry 98 95 Oxygen Delivery Method Room Air Room Air BMI result Body Mass Index 31.2 Labs 10/08/23 01:00 10/11/23 08:12 Labs: Laboratory Results - last 48 hr 10/14/23 13:10 Total Bilirubin 0.3 Direct Bilirubin 0.1 AST 15 ALT 12 Alkaline Phosphatase 60 Ammonia 42 Total Protein 7.2 Albumin 4.3 Valproic Acid 107.5 H Medications Medications Current Medications Acetaminophen (Acetaminophen 325 Mg Tablet) 650 mg PO Q6H PRN PRN Reason: Headache/Pain Mild Scale (1-3) Al Hydroxide/Mg Hydroxide (Magnesium Hydrox/Alum Hydrox 30 Ml Oral.Susp) 30 ml PO Q6H PRN PRN Reason: Heartburn/Nausea Benztropine Mesylate (Benztropine Mesylate 1 Mg Tablet) 1 mg PO BEDTIME [facility] Last Admin: 10/14/23 22:42 Dose: Not Given Divalproex Sodium (Divalproex Sodium Er 500 Mg Tab.Er.24h) 1,000 mg PO BEDTIME ALPESH Hydroxyzine HCl (Hydroxyzine Hcl 25 Mg Tablet) 25 mg PO Q6H PRN PRN Reason: Anxiety Last Admin: 10/13/23 12:32 Dose: 25 mg Magnesium Hydroxide (Milk Of Magnesia 30 Ml Oral.Susp) 30 ml PO DAILY PRN PRN Reason: Constipation Olanzapine (Olanzapine Odt 10 Mg Tab.Rapdis) 10 mg TRANSLINGU Q6H PRN PRN Reason: agitation Last Admin: 10/10/23 17:32 Dose: 10 mg Quetiapine Fumarate (Quetiapine Fumarate 50 Mg Tablet) 50 mg PO BID [facility] Last Admin: 10/15/23 09:05 Dose: 50 mg Trazodone HCl (Trazodone Hcl 50 Mg Tablet) 50 mg PO BEDTIME MRX1 PRN PRN Reason: Insomnia Allergies Allergies Allergy/AdvReac Type Severity Reaction Status Date / Time sesame oil Allergy Anaphylaxis Verified 10/10/23 19:24 sesame seed Allergy Anaphylaxis Verified 10/10/23 19:24 tree nut Allergy Anaphylaxis Verified 10/10/23 19:24 Assessment & Plan Assessment & Plan (1) Bipolar 1 disorder, manic, moderate: Status: Acute Code(s): F31.12 - Bipolar disorder, current episode manic without psychotic features, moderate Plan Patient is a 23 year old male with hx of Bipolar d/o who presented to [facility] via EMS from [facility] after visiting a friend and presenting manic and displaying sexualized behaviors in the closet. Hospital course 10/12: Continue current plan. 10/13: Continue current management and treatment plan. 10/14: On 1:1 safety checks. Disorganized. Wearing multiple layers of clothing, some clothing on backwards. Staffed notified T/W, pt walked into shower room, did not disrobe, however urinated and walked out of shower room without bathing self despite encouragement from staff. medication compliant. Pt retracted 3 day. Valporic acid 107.5 today; decreased dose from 750mg PO BID to Depakote 500mg PO BID. DC Haldol and Ativan Start: Seroquel 50mg PO BID Cogentin 1mg PO bedtime 10/15 Patient pleasant; still disorganized in speech behavior but staff agree he is doing better. Still struggling with sleep though did sleep a little better last night; attended some groups today. On approach patient says he is great and thinks keno writer / runner for meeting with him. He then explains why he is great saying I like my room... I like my bed... I like these ellis... I like that[points to vent]... Patient talked a little bit about the incident leading up to this admission and said that he got dressed in the proper fashion before [he] went to meet a girl... Patient says that he has been on Depakote in the past; he agrees he stopped taking it but is unable to give any kind of timeline. Discussed medication management and patient agrees to change his outpatient dose to make it long- acting and put it at bedtime to help with insomnia; he also asks for Seroquel to be put at bedtime since he is having trouble sleeping. Plan: CV 1:1 Obtain collateral Changed to Depakote ER, 1000 q.h.s.; will titrate to 1250 mg (patient agrees with change, to make it at bedtime to help with insomnia; also once a day dosing may help with adherence); long-acting is about 80% of IR Change Seroquel to 100mg mg q.h.s.; patient asked this change to help with insomnia Make Cogentin p.r.n.; patient does not want this medication and does not have any EPS symptoms thus far Ativan 1mg PO BID ?Haldol 5mg PO BID discharge planning labs Patient educated on: diagnosis and medication risk/benefits Informed Consent: understands, does not understand and further education needed Reason for continued inpatient stay Substantial Risk for: rapid decompensation Time Spent With Patient Time: Total time managing care of this patient today ____ minutes.
[2023-10-15 20:05] VITALS: BP 163/84; PULSE 76; RESP 14; TEMP 36.8; O2SAT 98
[2023-10-15] MEDS: Divalproex Sodium ER 500 MG TAB.ER.24H 1000 MG PO (23:13)
[2023-10-15] MEDS: QUEtiapine Fumarate 100 MG TABLET PO (23:13)
[2023-10-16 07:50] VITALS: BP 144/84; PULSE 92; TEMP 36.1; O2SAT 99
--- NOTE | 2023-10-16 09:58 | HO.PSYCHPN ---
Subjective Subjective Date of Service: 10/16/23 Reason For Visit: crisis Subjective Notes: Conditional Voluntary Interim History: Reviewed with . Continues on 1:1 safety checks d/t disorganization. Pt unable to have logical conversation, tangential, flight of ideas. When asked if he recalled what brought him into the hospital, pt stated, yeah. I had a panic attack and a bisexual experience. Panic at the disco. 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 I'm not trying to steal your . Pt is medication compliant. Medication Compliance: Yes Side effects from medications: No Attending Groups: Intermittent Review of Systems Constitutional: Reports as per HPI Eyes: Reports as per HPI Reports as per HPI Cardiovascular: Reports as per HPI Respiratory: Reports as per HPI Gastrointestinal: Reports as per HPI Genitourinary: Reports as per HPI Musculoskeletal: Reports as per HPI Skin/Breast: Reports as per HPI Reports as per HPI Psychiatric: Reports as per HPI Endocrine: Reports as per HPI Hematologic/Lymphatic: Reports as per HPI Allergic/Immunologic: Reports as per HPI Mental Status Exam Mental Status Exam Narrative: Pt is alert and oriented; behavior is cooperative and calm; dressed in casual attire; mood is described as good ; eye contact appropriate; long pauses in speech, not pressured or rapid; tangential, disorganized, flight of ideas. Diagnostics Vital Signs (24Hr): Vital Signs - 24 hr 10/15/23 20:05 10/16/23 07:50 Temperature 98.3 F 97 F Pulse Rate 76 92 Respiratory Rate 14 Blood Pressure 163/84 H 144/84 H Pulse Oximetry 98 99 Oxygen Delivery Method Room Air Room Air BMI result Body Mass Index 31.2 Labs 10/08/23 01:00 10/11/23 08:12 Labs: Laboratory Results - last 48 hr 10/14/23 13:10 Total Bilirubin 0.3 Direct Bilirubin 0.1 AST 15 ALT 12 Alkaline Phosphatase 60 Ammonia 42 Total Protein 7.2 Albumin 4.3 Valproic Acid 107.5 H Medications Medications Current Medications Acetaminophen (Acetaminophen 325 Mg Tablet) 650 mg PO Q6H PRN PRN Reason: Headache/Pain Mild Scale (1-3) Al Hydroxide/Mg Hydroxide (Magnesium Hydrox/Alum Hydrox 30 Ml Oral.Susp) 30 ml PO Q6H PRN PRN Reason: Heartburn/Nausea Benztropine Mesylate (Benztropine Mesylate 1 Mg Tablet) 1 mg PO BEDTIME PRN PRN Reason: EPS Divalproex Sodium (Divalproex Sodium Er 250 Mg Tab.Er.24h) 1,250 mg PO BEDTIME ALPESH Hydroxyzine HCl (Hydroxyzine Hcl 25 Mg Tablet) 25 mg PO Q6H PRN PRN Reason: Anxiety Last Admin: 10/13/23 12:32 Dose: 25 mg Magnesium Hydroxide (Milk Of Magnesia 30 Ml Oral.Susp) 30 ml PO DAILY PRN PRN Reason: Constipation Olanzapine (Olanzapine Odt 10 Mg Tab.Rapdis) 10 mg TRANSLINGU Q6H PRN PRN Reason: agitation Last Admin: 10/10/23 17:32 Dose: 10 mg Quetiapine Fumarate (Quetiapine Fumarate 100 Mg Tablet) 100 mg PO BEDTIME ALPESH Last Admin: 10/15/23 23:13 Dose: 100 mg Trazodone HCl (Trazodone Hcl 50 Mg Tablet) 50 mg PO BEDTIME MRX1 PRN PRN Reason: Insomnia Allergies Allergies Allergy/AdvReac Type Severity Reaction Status Date / Time sesame oil Allergy Anaphylaxis Verified 10/10/23 19:24 sesame seed Allergy Anaphylaxis Verified 10/10/23 19:24 tree nut Allergy Anaphylaxis Verified 10/10/23 19:24 Assessment & Plan Assessment & Plan (1) Bipolar 1 disorder, manic, moderate: Status: Acute Code(s): F31.12 - Bipolar disorder, current episode manic without psychotic features, moderate Plan Patient is a 23 year old male with hx of Bipolar d/o who presented to [facility] [place] from [facility] after visiting a friend and presenting manic and displaying sexualized behaviors in the closet. Hospital course 10/12: Continue current plan. 10/13: Continue current management and treatment plan. 10/14: On 1:1 safety checks. Disorganized. Wearing multiple layers of clothing, some clothing on backwards. Staffed notified T/W, pt walked into shower room, did not disrobe, however urinated and walked out of shower room without bathing self despite encouragement from staff. medication compliant. Pt retracted 3 day. Valporic acid 107.5 today; decreased dose from 750mg PO BID to Depakote 500mg PO BID. DC Haldol and Ativan Start: Seroquel 50mg PO BID Cogentin 1mg PO bedtime 10/15 Patient pleasant; still disorganized in speech behavior but staff agree he is doing better. Still struggling with sleep though did sleep a little better last night; attended some groups today. On approach patient says he is great and thinks keno writer/runner for meeting with him. He then explains why he is great saying I like my room... I like my bed... I like these ellis... I like that[points to vent]... Patient talked a little bit about the incident leading up to this admission and said that he got dressed in the proper fashion before [he] went to meet a girl... Patient says that he has been on Depakote in the past; he agrees he stopped taking it but is unable to give any kind of timeline. Discussed medication management and patient agrees to change his outpatient dose to make it long-acting and put it at bedtime to help with insomnia; he also asks for Seroquel to be put at bedtime since he is having trouble sleeping. 10/16: Continues on 1:1 safety checks d/t disorganization. Pt unable to have logical conversation, tangential, flight of ideas. When asked if he recalled what brought him into the hospital, pt stated, yeah. I had a panic attack and a bisexual experience. Panic at the disco. 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 I'm not trying to steal your . Pt is medication compliant. Plan: CV 1:1 Obtain collateral Changed to Depakote ER, 1000 q.h.s.; will titrate to 1250 mg (patient agrees with change, to make it at bedtime to help with insomnia; also once a day dosing may help with adherence); long-acting is about 80% of IR Change Seroquel to 100mg mg q.h.s.; patient asked this change to help with insomnia Make Cogentin p.r.n.; patient does not want this medication and does not have any EPS symptoms thus far Ativan 1mg PO BID ?Haldol 5mg PO BID discharge planning labs Reason for continued inpatient stay Substantial Risk for: inability to function, rapid decompensation and med/psych decompensation Time Spent With Patient Time: Total time managing care of this patient today ____ minutes.
[2023-10-16 19:35] VITALS: BP 150/83; PULSE 76; RESP 16; TEMP 37.1; O2SAT 97
[2023-10-16] MEDS: QUEtiapine Fumarate 100 MG TABLET PO (22:09)
[2023-10-16] MEDS: Divalproex Sodium ER 250 MG TAB.ER.24H 1250 MG PO (22:09)
[2023-10-17] MEDS: hydrOXYzine HCL 25 MG TABLET PO (00:15)
[2023-10-17] MEDS: traZODone HCL 50 MG TABLET PO ×2 (00:15→22:15)
[2023-10-17 07:00] VITALS: BMI 29.3
--- NOTE | 2023-10-17 10:13 | HO.PSYCHPN ---
Subjective Subjective Date of Service: 10/17/23 Reason For Visit: crisis Subjective Notes: Conditional Voluntary Interim History: Reviewed with . Continues on 1:1 safety checks d/t disorganization. Pt unable to have logical conversation, tangential, flight of ideas. Pt reports feeling great today; pt stated, I'm trying to work on my posture. I'm not in the Matrix. I see the world in color. I'm the question . Spoke to patient's outpatient psychiatrist, Dr. Jarett Castro, who reported hx of taking: Depakote 1500mg PO bedtime Seroquel 200mg PO BID Hx of failed meds: Olanzapine (pt did not like this med) Risperidal (pt also did not like) Latuda (made him manic) Invega discussed possibly adding lithium and increasing seroquel dose. Medication Compliance: Yes Side effects from medications: No Attending Groups: No Review of Systems Constitutional: Reports as per HPI Eyes: Reports as per HPI Reports as per HPI Cardiovascular: Reports as per HPI Respiratory: Reports as per HPI Gastrointestinal: Reports as per HPI Genitourinary: Reports as per HPI Musculoskeletal: Reports as per HPI Skin/Breast: Reports as per HPI Reports as per HPI Psychiatric: Reports as per HPI Endocrine: Reports as per HPI Hematologic/Lymphatic: Reports as per HPI Allergic/Immunologic: Reports as per HPI Mental Status Exam Mental Status Exam Narrative: Pt is alert and oriented; behavior is cooperative and calm; dressed in casual attire; mood is described as good ; eye contact appropriate; long pauses in speech, not pressured or rapid; tangential, disorganized, flight of ideas. Diagnostics Vital Signs (24Hr): Vital Signs - 24 hr 10/16/23 19:35 Temperature 98.7 F Pulse Rate 76 Respiratory Rate 16 Blood Pressure 150/83 H Pulse Oximetry 97 Oxygen Delivery Method Room Air BMI result Body Mass Index 31.2 Labs 10/08/23 01:00 10/11/23 08:12 Medications Medications Current Medications Acetaminophen (Acetaminophen 325 Mg Tablet) 650 mg PO Q6H PRN PRN Reason: Headache/Pain Mild Scale (1-3) Al Hydroxide/Mg Hydroxide (Magnesium Hydrox/Alum Hydrox 30 Ml Oral.Susp) 30 ml PO Q6H PRN PRN Reason: Heartburn/Nausea Benztropine Mesylate (Benztropine Mesylate 1 Mg Tablet) 1 mg PO BEDTIME PRN PRN Reason: EPS Divalproex Sodium (Divalproex Sodium Er 250 Mg Tab.Er.24h) 1,250 mg PO BEDTIME ALPESH Last Admin: 10/16/23 22:09 Dose: 1,250 mg Hydroxyzine HCl (Hydroxyzine Hcl 25 Mg Tablet) 25 mg PO Q6H PRN PRN Reason: Anxiety Last Admin: 10/17/23 00:15 Dose: 25 mg Magnesium Hydroxide (Milk Of Magnesia 30 Ml Oral.Susp) 30 ml PO DAILY PRN PRN Reason: Constipation Olanzapine (Olanzapine Odt 10 Mg Tab.Rapdis) 10 mg TRANSLINGU Q6H PRN PRN Reason: agitation Last Admin: 10/10/23 17:32 Dose: 10 mg Quetiapine Fumarate (Quetiapine Fumarate 100 Mg Tablet) 100 mg PO BEDTIME ALPESH Last Admin: 10/16/23 22:09 Dose: 100 mg Trazodone HCl (Trazodone Hcl 50 Mg Tablet) 50 mg PO BEDTIME MRX1 PRN PRN Reason: Insomnia Last Admin: 10/17/23 00:15 Dose: 50 mg Allergies Allergies Allergy/AdvReac Type Severity Reaction Status Date / Time sesame oil Allergy Anaphylaxis Verified 10/10/23 19:24 sesame seed Allergy Anaphylaxis Verified 10/10/23 19:24 tree nut Allergy Anaphylaxis Verified 10/10/23 19:24 Assessment & Plan Assessment & Plan (1) Bipolar 1 disorder, manic, moderate: Status: Acute Code(s): F31.12 - Bipolar disorder, current episode manic without psychotic features, moderate Plan Patient is a 23 year old male with hx of Bipolar d/o who presented to [facility] via EMS from [facility] after visiting a friend and presenting manic and displaying sexualized behaviors in the closet. Hospital course 10/12: Continue current plan. 10/13: Continue current management and treatment plan. 10/14: On 1:1 safety checks. Disorganized. Wearing multiple layers of clothing, some clothing on backwards. Staffed notified T/W, pt walked into shower room, did not disrobe, however urinated and walked out of shower room without bathing self despite encouragement from staff. medication compliant. Pt retracted 3 day. Valporic acid 107.5 today; decreased dose from 750mg PO BID to Depakote 500mg PO BID. DC Haldol and Ativan Start: Seroquel 50mg PO BID Cogentin 1mg PO bedtime 10/15: Patient pleasant; still disorganized in speech behavior but staff agree he is doing better. Still struggling with sleep though did sleep a little better last night; attended some groups today. On approach patient says he is great and thinks global technical writer for meeting with him. He then explains why he is great saying I like my room... I like my bed... I like these ellis... I like that[points to vent]... Patient talked a little bit about the incident leading up to this admission and said that he got dressed in the proper fashion before [he] went to meet a girl... Patient says that he has been on Depakote in the past; he agrees he stopped taking it but is unable to give any kind of timeline. Discussed medication management and patient agrees to change his outpatient dose to make it long-acting and put it at bedtime to help with insomnia; he also asks for Seroquel to be put at bedtime since he is having trouble sleeping. 10/16: Continues on 1:1 safety checks d/t disorganization. Pt unable to have logical conversation, tangential, flight of ideas. When asked if he recalled what brought him into the hospital, pt stated, yeah. I had a panic attack and a bisexual experience. Panic at the disco. 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 I'm not trying to steal your . Pt is medication compliant. 10/17: Continues on 1:1 safety checks d/t disorganization. Pt unable to have logical conversation, tangential, flight of ideas. Pt reports feeling great today; pt stated, I'm trying to work on my posture. I'm not in the Matrix. I see the world in color. I'm the question . Spoke to patient's outpatient psychiatrist, Dr. Jarett Castro, who reported hx of taking: Depakote 1500mg PO bedtime Seroquel 200mg PO BID Hx of failed meds: Olanzapine (pt did not like this med) Risperidal (pt also did not like) Latuda (made him manic) Invega discussed possibly adding lithium and increasing seroquel dose. Patient educated on: diagnosis and medication risk/benefits Informed Consent: understands Reason for continued inpatient stay Substantial Risk for: inability to function, rapid decompensation and med/psych decompensation Time Spent With Patient Time: Total time managing care of this patient today _30___ minutes.
[2023-10-17 14:00] VITALS: BP 158/82; PULSE 83; RESP 16; TEMP 36.1; O2SAT 96
[2023-10-17 20:10] VITALS: BP 182/81; PULSE 82; RESP 18; TEMP 36.7; O2SAT 96
[2023-10-17] MEDS: Divalproex Sodium ER 500 MG TAB.ER.24H 1500 MG PO (22:14)
[2023-10-17] MEDS: QUEtiapine Fumarate 200 MG TABLET PO (22:14)
[2023-10-17] MEDS: Benztropine Mesylate 1 MG TABLET PO (22:15)
[2023-10-17] MEDS: Acetaminophen 325 MG TABLET 650 MG PO (23:34)
[2023-10-18 07:55] VITALS: BP 125/65; PULSE 80; RESP 16; TEMP 36.2; O2SAT 98
[2023-10-18] MEDS: QUEtiapine Fumarate 200 MG TABLET PO ×2 (08:53→23:02)
--- NOTE | 2023-10-18 08:58 | HO.PSYCHPN ---
Subjective Subjective Date of Service: 10/18/23 Reason For Visit: crisis Subjective Notes: Conditional Voluntary Interim History: Reviewed with . Pt placed on 5 minute checks; presents a bit more organized than days prior. Continues tangential, flight of ideas. Pt stated, I like the Seroquel and Depakote dance. I was away from my pulls which was the problem. I'm trying to get back to [employer]. I was in sport mode. 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 Pt reports taking lithium in the past but it made him psychotic . Medication Compliance: Yes Side effects from medications: No Attending Groups: Yes Review of Systems Constitutional: Reports as per HPI Eyes: Reports as per HPI Reports as per HPI Cardiovascular: Reports as per HPI Respiratory: Reports as per HPI Gastrointestinal: Reports as per HPI Genitourinary: Reports as per HPI Musculoskeletal: Reports as per HPI Skin/Breast: Reports as per HPI Reports as per HPI Psychiatric: Reports as per HPI Endocrine: Reports as per HPI Hematologic/Lymphatic: Reports as per HPI Allergic/Immunologic: Reports as per HPI Mental Status Exam Mental Status Exam Narrative: Pt is alert and oriented; behavior is cooperative and calm; dressed in casual attire; mood is described as good ; eye contact appropriate; long pauses in speech, not pressured or rapid; tangential, disorganized, flight of ideas. Diagnostics Vital Signs (24Hr): Vital Signs - 24 hr 10/17/23 14:00 10/17/23 20:10 10/18/23 07:55 Temperature 96.9 F 98.0 F 97.2 F Pulse Rate 83 82 80 Respiratory Rate 16 18 16 Blood Pressure 158/82 H 182/81 H 125/65 Pulse Oximetry 96 96 98 Oxygen Delivery Method Room Air Room Air Room Air BMI result Body Mass Index 29.3 Labs 10/08/23 01:00 10/11/23 08:12 Medications Medications Current Medications Acetaminophen (Acetaminophen 325 Mg Tablet) 650 mg PO Q6H PRN PRN Reason: Headache/Pain Mild Scale (1-3) Last Admin: 10/17/23 23:34 Dose: 650 mg Al Hydroxide/Mg Hydroxide (Magnesium Hydrox/Alum Hydrox 30 Ml Oral.Susp) 30 ml PO Q6H PRN PRN Reason: Heartburn/Nausea Benztropine Mesylate (Benztropine Mesylate 1 Mg Tablet) 1 mg PO BEDTIME PRN PRN Reason: EPS Last Admin: 10/17/23 22:15 Dose: 1 mg Divalproex Sodium (Divalproex Sodium Er 500 Mg Tab.Er.24h) 1,500 mg PO BEDTIME ALPESH Last Admin: 10/17/23 22:14 Dose: 1,500 mg Hydroxyzine HCl (Hydroxyzine Hcl 25 Mg Tablet) 25 mg PO Q6H PRN PRN Reason: Anxiety Last Admin: 10/17/23 00:15 Dose: 25 mg Magnesium Hydroxide (Milk Of Magnesia 30 Ml Oral.Susp) 30 ml PO DAILY PRN PRN Reason: Constipation Olanzapine (Olanzapine Odt 10 Mg Tab.Rapdis) 10 mg TRANSLINGU Q6H PRN PRN Reason: agitation Last Admin: 10/10/23 17:32 Dose: 10 mg Quetiapine Fumarate (Quetiapine Fumarate 200 Mg Tablet) 200 mg PO BID ALPESH Last Admin: 10/18/23 08:53 Dose: 200 mg Trazodone HCl (Trazodone Hcl 50 Mg Tablet) 50 mg PO BEDTIME MRX1 PRN PRN Reason: Insomnia Last Admin: 10/17/23 22:15 Dose: 50 mg Allergies Allergies Allergy/AdvReac Type Severity Reaction Status Date / Time sesame oil Allergy Anaphylaxis Verified 10/10/23 19:24 sesame seed Allergy Anaphylaxis Verified 10/10/23 19:24 tree nut Allergy Anaphylaxis Verified 10/10/23 19:24 Assessment & Plan Assessment & Plan (1) Bipolar 1 disorder, manic, moderate: Status: Acute Code(s): F31.12 - Bipolar disorder, current episode manic without psychotic features, moderate Plan Patient is a 23 year old male with hx of Bipolar d/o who presented to [facility] via EMS from [facility] after visiting a friend and presenting manic and displaying sexualized behaviors in the closet. Hospital course 10/12: Continue current plan. 10/13: Continue current management and treatment plan. 10/14: On 1:1 safety checks. Disorganized. Wearing multiple layers of clothing, some clothing on backwards. Staffed notified T/W, pt walked into shower room, did not disrobe, however urinated and walked out of shower room without bathing self despite encouragement from staff. medication compliant. Pt retracted 3 day. Valporic acid 107.5 today; decreased dose from 750mg PO BID to Depakote 500mg PO BID. DC Haldol and Ativan Start: Seroquel 50mg PO BID Cogentin 1mg PO bedtime 10/15: Patient pleasant; still disorganized in speech behavior but staff agree he is doing better. Still struggling with sleep though did sleep a little better last night; attended some groups today. On approach patient says he is great and thinks radio script writer for meeting with him. He then explains why he is great saying I like my room... I like my bed... I like these ellis... I like that[points to vent]... Patient talked a little bit about the incident leading up to this admission and said that he got dressed in the proper fashion before [he] went to meet a girl... Patient says that he has been on Depakote in the past; he agrees he stopped taking it but is unable to give any kind of timeline. Discussed medication management and patient agrees to change his outpatient dose to make it long-acting and put it at bedtime to help with insomnia; he also asks for Seroquel to be put at bedtime since he is having trouble sleeping. 10/16: Continues on 1:1 safety checks d/t disorganization. Pt unable to have logical conversation, tangential, flight of ideas. When asked if he recalled what brought him into the hospital, pt stated, yeah. I had a panic attack and a bisexual experience. Panic at the disco. 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 I'm not trying to steal your . Pt is medication compliant. 10/17: Continues on 1:1 safety checks d/t disorganization. Pt unable to have logical conversation, tangential, flight of ideas. Pt reports feeling great today; pt stated, I'm trying to work on my posture. I'm not in the Matrix. I see the world in color. I'm the question . Spoke to patient's outpatient psychiatrist, Dr. Jarett Castro, who reported hx of taking: Depakote 1500mg PO bedtime Seroquel 200mg PO BID Hx of failed meds: Olanzapine (pt did not like this med) Risperidal (pt also did not like) Latuda (made him manic) Hina discussed possibly adding lithium and increasing seroquel dose. 10/18: Pt placed on 5 minute checks; presents a bit more organized than days prior. Continues tangential, flight of ideas. Pt stated, I like the Seroquel and Depakote dance. I was away from my pulls which was the problem. I'm trying to get back to [employer]. I was in sport mode. 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 Pt reports taking lithium in the past but it made him psychotic . Continue current treatment plan. Patient educated on: diagnosis and medication risk/benefits Informed Consent: understands Reason for continued inpatient stay Substantial Risk for: rapid decompensation and med/psych decompensation Time Spent With Patient Time: Total time managing care of this patient today _20___ minutes.
[2023-10-18 20:55] VITALS: BP 160/76; PULSE 81; RESP 18; TEMP 36.6; O2SAT 96
[2023-10-18] MEDS: Divalproex Sodium ER 500 MG TAB.ER.24H 1500 MG PO (23:02)
[2023-10-19 07:20] VITALS: BP 132/87; PULSE 62; RESP 16; TEMP 36.4; O2SAT 99
[2023-10-19] MEDS: QUEtiapine Fumarate 200 MG TABLET PO ×2 (08:43→22:59)
[2023-10-19 08:50] LABS: Alanine Aminotransferase 12 U/L (0-40); Albumin Level 4.3 g/dL (3.5-5.0); Alkaline Phosphatase 57 U/L (39-117); Aspartate Amino Transferase 14 U/L (5-37); Bilirubin Direct 0.2 mg/dL (0.0-0.5); Bilirubin Total 0.4 mg/dL (0.0-1.0); Total Protein 6.9 g/dL (6.5-8.0); Valproate 98.7 mcg/mL (50.0-100.0)
[2023-10-19 08:51] LABS: Ammonia 40 umol/L (13-55)
--- NOTE | 2023-10-19 16:27 | P.PNPSI_ITS ---
Subjective Subjective Date of Service: 10/19/23 Reason For Visit: crisis Interim History: cooperative, hyperverbal, pleasant. some logic difficult to follow or find the relevance of, but seemed to be saying he was happy with current regimen and did not want MD to meddle with it. per staff, off 1:1 now, which he had been on for bizarre behaviors. elevated SBP. per outpt provider, goal is to be on 2 mood stabilizers. cooperative, but non-sensical. doesn't like seroquel at night, but does like it during the day. Mental Status Exam Mental Status Exam Narrative: Pt is alert and oriented; behavior is cooperative and calm; dressed in casual attire; mood is described as good ; eye contact appropriate; hyperverbal, but not loud or rapid; tangential and fairly disorganized. some meaning can be parsed from his speech, however. Diagnostics Vital Signs (24Hr): Vital Signs - 24 hr 10/18/23 20:55 10/19/23 07:20 Temperature 97.8 F 97.6 F Pulse Rate 81 62 Respiratory Rate 18 16 Blood Pressure 160/76 H 132/87 Pulse Oximetry 96 99 Oxygen Delivery Method Room Air Room Air BMI result Body Mass Index 29.3 Labs 10/08/23 01:00 10/11/23 08:12 Labs: Laboratory Results - last 48 hr 10/19/23 08:25 Total Bilirubin 0.4 Direct Bilirubin 0.2 AST 14 ALT 12 Alkaline Phosphatase 57 Ammonia 40 Total Protein 6.9 Albumin 4.3 Valproic Acid 98.7 Medications Medications Current Medications Acetaminophen (Acetaminophen 325 Mg Tablet) 650 mg PO Q6H PRN PRN Reason: Headache/Pain Mild Scale (1-3) Last Admin: 10/17/23 23:34 Dose: 650 mg Al Hydroxide/Mg Hydroxide (Magnesium Hydrox/Alum Hydrox 30 Ml Oral.Susp) 30 ml PO Q6H PRN PRN Reason: Heartburn/Nausea Benztropine Mesylate (Benztropine Mesylate 1 Mg Tablet) 1 mg PO BEDTIME PRN PRN Reason: EPS Last Admin: 10/17/23 22:15 Dose: 1 mg Divalproex Sodium (Divalproex Sodium Er 500 Mg Tab.Er.24h) 1,500 mg PO BEDTIME ALPESH Last Admin: 10/18/23 23:02 Dose: 1,500 mg Hydroxyzine HCl (Hydroxyzine Hcl 25 Mg Tablet) 25 mg PO Q6H PRN PRN Reason: Anxiety Last Admin: 10/17/23 00:15 Dose: 25 mg Magnesium Hydroxide (Milk Of Magnesia 30 Ml Oral.Susp) 30 ml PO DAILY PRN PRN Reason: Constipation Olanzapine (Olanzapine Odt 10 Mg Tab.Rapdis) 10 mg TRANSLINGU Q6H PRN PRN Reason: agitation Last Admin: 10/10/23 17:32 Dose: 10 mg Quetiapine Fumarate (Quetiapine Fumarate 200 Mg Tablet) 200 mg PO BID ALPESH Last Admin: 10/19/23 08:43 Dose: 200 mg Trazodone HCl (Trazodone Hcl 50 Mg Tablet) 50 mg PO BEDTIME MRX1 PRN PRN Reason: Insomnia Last Admin: 10/17/23 22:15 Dose: 50 mg Allergies Allergies Allergy/AdvReac Type Severity Reaction Status Date / Time sesame oil Allergy Anaphylaxis Verified 10/10/23 19:24 sesame seed Allergy Anaphylaxis Verified 10/10/23 19:24 tree nut Allergy Anaphylaxis Verified 10/10/23 19:24 Assessment & Plan Assessment & Plan (1) Bipolar 1 disorder, manic, moderate: Status: Acute Code(s): F31.12 - Bipolar disorder, current episode manic without psychotic features, moderate Plan Patient is a 23 year old male with hx of Bipolar d/o who [place] [facility] [place] [facility] after visiting a friend and presenting manic and displaying sexualized behaviors in the closet. Hospital course 10/12: Continue current plan. 10/13: Continue current management and treatment plan. 10/14: On 1:1 safety checks. Disorganized. Wearing multiple layers of clothing, some clothing on backwards. Staffed notified T/W, pt walked into shower room, did not disrobe, however urinated and walked out of shower room without bathing self despite encouragement from staff. medication compliant. Pt retracted 3 day. Valporic acid 107.5 today; decreased dose from 750mg PO BID to Depakote 500mg PO BID. DC Haldol and Ativan Start: Seroquel 50mg PO BID Cogentin 1mg PO bedtime 10/15: Patient pleasant; still disorganized in speech behavior but staff agree he is doing better. Still struggling with sleep though did sleep a little better last night; attended some groups today. On approach patient says he is great and thinks chief writer for meeting with him. He then explains why he is great saying I like my room... I like my bed... I like these ellis... I like that[points to vent]... Patient talked a little bit about the incident leading up to this admission and said that he got dressed in the proper fashion before [he] went to meet a girl... Patient says that he has been on Depakote in the past; he agrees he stopped taking it but is unable to give any kind of timeline. Discussed medication management and patient agrees to change his outpatient dose to make it long- acting and put it at bedtime to help with insomnia; he also asks for Seroquel to be put at bedtime since he is having trouble sleeping. 10/16: Continues on 1:1 safety checks d/t disorganization. Pt unable to have logical conversation, tangential, flight of ideas. When asked if he recalled what brought him into the hospital, pt stated, yeah. I had a panic attack and a bisexual experience. Panic at the disco. 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 I'm not trying to steal your . Pt is medication compliant. 10/17: Continues on 1:1 safety checks d/t disorganization. Pt unable to have logical conversation, tangential, flight of ideas. Pt reports feeling great today; pt stated, I'm trying to work on my posture. I'm not in the Matrix. I see the world in color. I'm the question . Spoke to patient's outpatient psychiatrist, Dr. Jarett Castro, who reported hx of taking: Depakote 1500mg PO bedtime Seroquel 200mg PO BID Hx of failed meds: Olanzapine (pt did not like this med) Risperidal (pt also did not like) Latuda (made him manic) Invega discussed possibly adding lithium and increasing seroquel dose. 10/18: Pt placed on 5 minute checks; presents a bit more organized than days prior. Continues tangential, flight of ideas. Pt stated, I like the Seroquel and Depakote dance. I was away from my pulls which was the problem. I'm trying to get back to [employer]. I was in sport mode. 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 medication compliant, labs to be drawn tomorrow morning. Pt reports taking lithium in the past but it made him psychotic . Continue current treatment plan. 2/3: pt strongly expresses desire to remain on present regimen for now. hyperverbal and disorganized. continue current mgmt. Reason for continued inpatient stay Substantial Risk for: inability to function and rapid decompensation Time Spent With Patient Time: Total time managing care of this patient today ____ minutes.
[2023-10-19 20:25] VITALS: BP 164/72; PULSE 97; RESP 15; TEMP 36.7; O2SAT 98
[2023-10-19] MEDS: Divalproex Sodium ER 500 MG TAB.ER.24H 1500 MG PO (22:59)
[2023-10-20 06:00] VITALS: BP 142/79; PULSE 71; RESP 16; TEMP 36.4; O2SAT 98
[2023-10-20] MEDS: QUEtiapine Fumarate 200 MG TABLET PO ×2 (08:23→22:48)
--- NOTE | 2023-10-20 18:57 | HO.PSYCHPN ---
Subjective Subjective Date of Service: 10/20/23 Reason For Visit: crisis Interim History: calm, cooperative. continues to feel well on current regimen, yet also continues to present with Sx of zenia such as hyperverbality and delusional thinking. per staff, feeling great. slept OK. not feeling safe with roommates. hyperverbal. Mental Status Exam Mental Status Exam Narrative: Pt is alert and oriented; behavior is cooperative and calm; dressed in casual attire; mood is described as good ; eye contact appropriate; hyperverbal, but not loud or rapid; tangential and fairly disorganized. some meaning can be parsed from his speech, however. Diagnostics Vital Signs (24Hr): Vital Signs - 24 hr 10/19/23 20:25 10/20/23 06:00 Temperature 98.0 F 97.6 F Pulse Rate 97 71 Respiratory Rate 15 16 Blood Pressure 164/72 H 142/79 H Pulse Oximetry 98 98 Oxygen Delivery Method Room Air Room Air BMI result Body Mass Index 29.3 Labs 10/08/23 01:00 10/11/23 08:12 Labs: Laboratory Results - last 48 hr 10/19/23 08:25 Total Bilirubin 0.4 Direct Bilirubin 0.2 AST 14 ALT 12 Alkaline Phosphatase 57 Ammonia 40 Total Protein 6.9 Albumin 4.3 Valproic Acid 98.7 Medications Medications Current Medications Acetaminophen (Acetaminophen 325 Mg Tablet) 650 mg PO Q6H PRN PRN Reason: Headache/Pain Mild Scale (1-3) Last Admin: 10/17/23 23:34 Dose: 650 mg Al Hydroxide/Mg Hydroxide (Magnesium Hydrox/Alum Hydrox 30 Ml Oral.Susp) 30 ml PO Q6H PRN PRN Reason: Heartburn/Nausea Benztropine Mesylate (Benztropine Mesylate 1 Mg Tablet) 1 mg PO BEDTIME PRN PRN Reason: EPS Last Admin: 10/17/23 22:15 Dose: 1 mg Divalproex Sodium (Divalproex Sodium Er 500 Mg Tab.Er.24h) 1,500 mg PO BEDTIME ALPESH Last Admin: 10/19/23 22:59 Dose: 1,500 mg Hydroxyzine HCl (Hydroxyzine Hcl 25 Mg Tablet) 25 mg PO Q6H PRN PRN Reason: Anxiety Last Admin: 10/17/23 00:15 Dose: 25 mg Magnesium Hydroxide (Milk Of Magnesia 30 Ml Oral.Susp) 30 ml PO DAILY PRN PRN Reason: Constipation Olanzapine (Olanzapine Odt 10 Mg Tab.Rapdis) 10 mg TRANSLINGU Q6H PRN PRN Reason: agitation Last Admin: 10/10/23 17:32 Dose: 10 mg Quetiapine Fumarate (Quetiapine Fumarate 200 Mg Tablet) 200 mg PO BID ALPESH Last Admin: 10/20/23 08:23 Dose: 200 mg Trazodone HCl (Trazodone Hcl 50 Mg Tablet) 50 mg PO BEDTIME MRX1 PRN PRN Reason: Insomnia Last Admin: 10/17/23 22:15 Dose: 50 mg Allergies Allergies Allergy/AdvReac Type Severity Reaction Status Date / Time sesame oil Allergy Anaphylaxis Verified 10/10/23 19:24 sesame seed Allergy Anaphylaxis Verified 10/10/23 19:24 tree nut Allergy Anaphylaxis Verified 10/10/23 19:24 Assessment & Plan Assessment & Plan (1) Bipolar 1 disorder, manic, moderate: Status: Acute Code(s): F31.12 - Bipolar disorder, current episode manic without psychotic features, moderate Plan Patient is a 23 year old male with hx of Bipolar d/o who [place] [facility] [place] [facility] [place] [facility] after visiting a friend and presenting manic and displaying sexualized behaviors in the closet. Hospital course 10/12: Continue current plan. 10/13: Continue current management and treatment plan. 10/14: On 1:1 safety checks. Disorganized. Wearing multiple layers of clothing, some clothing on backwards. Staffed notified T/W, pt walked into shower room, did not disrobe, however urinated and walked out of shower room without bathing self despite encouragement from staff. medication compliant. Pt retracted 3 day. Valporic acid 107.5 today; decreased dose from 750mg PO BID to Depakote 500mg PO BID. DC Haldol and Ativan Start: Seroquel 50mg PO BID Cogentin 1mg PO bedtime 10/15: Patient pleasant; still disorganized in speech behavior but staff agree he is doing better. Still struggling with sleep though did sleep a little better last night; attended some groups today. On approach patient says he is great and thinks technical proposal writer for meeting with him. He then explains why he is great saying I like my room... I like my bed... I like these ellis... I like that[points to vent]... Patient talked a little bit about the incident leading up to this admission and said that he got dressed in the proper fashion before [he] went to meet a girl... Patient says that he has been on Depakote in the past; he agrees he stopped taking it but is unable to give any kind of timeline. Discussed medication management and patient agrees to change his outpatient dose to make it long-acting and put it at bedtime to help with insomnia; he also asks for Seroquel to be put at bedtime since he is having trouble sleeping. 10/16: Continues on 1:1 safety checks d/t disorganization. Pt unable to have logical conversation, tangential, flight of ideas. When asked if he recalled what brought him into the hospital, pt stated, yeah. I had a panic attack and a bisexual experience. Panic at the disco. 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 I'm not trying to steal your . Pt is medication compliant. 10/17: Continues on 1:1 safety checks d/t disorganization. Pt unable to have logical conversation, tangential, flight of ideas. Pt reports feeling great today; pt stated, I'm trying to work on my posture. I'm not in the Matrix. I see the world in color. I'm the question . Spoke to patient's outpatient psychiatrist, Dr. Jarett Castro, who reported hx of taking: Depakote 1500mg PO bedtime Seroquel 200mg PO BID Hx of failed meds: Olanzapine (pt did not like this med) Risperidal (pt also did not like) Latuda (made him manic) Invega discussed possibly adding lithium and increasing seroquel dose. 10/18: Pt placed on 5 minute checks; presents a bit more organized than days prior. Continues tangential, flight of ideas. Pt stated, I like the Seroquel and Depakote dance. I was away from my pulls which was the problem. I'm trying to get back to [email or web address]. I was in sport mode. 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 Pt reports taking lithium in the past but it made him psychotic . Continue current treatment plan. 10/19: pt strongly expresses desire to remain on present regimen for now. hyperverbal and disorganized. continue current mgmt. 10/20: presentation similar to yesterday. not interested in changing regimen. continue current mgmt. Reason for continued inpatient stay Substantial Risk for: inability to function and rapid decompensation Time Spent With Patient Time: Total time managing care of this patient today ____ minutes.
[2023-10-20 20:10] VITALS: BP 141/78; PULSE 73; RESP 18; TEMP 36.6; O2SAT 99
[2023-10-20] MEDS: Divalproex Sodium ER 500 MG TAB.ER.24H 1500 MG PO (22:48)
[2023-10-20] MEDS: Acetaminophen 325 MG TABLET 650 MG PO (23:41)
[2023-10-21 07:15] VITALS: BP 181/73; PULSE 81; RESP 14; TEMP 34.3; O2SAT 97
[2023-10-21 08:10] VITALS: BP 178/74; PULSE 83; RESP 18; TEMP 36.2; O2SAT 97
[2023-10-21] MEDS: QUEtiapine Fumarate 200 MG TABLET PO (08:12)
--- NOTE | 2023-10-21 09:15 | P.PNPSI_ITS ---
Subjective Subjective Date of Service: 10/21/23 Reason For Visit: crisis Subjective Notes: Conditional Voluntary Interim History: Reviewed with . taken off 5 minute safety checks and placed on 15's. pt is in behavioral control. However, continues hyperverbal and tangential. 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 I'm trying to grapple with the fact that I'm a closeted bisexual who needed to see the sun and is oppressed by race and fear of Covid. Why do you think I was eating the [employer] cards? Increase Seroquel to 300mg PO BID. Start: Wolbach 150mg PO bedtime Medication Compliance: Yes Side effects from medications: No Attending Groups: Yes Review of Systems Constitutional: Reports as per HPI Eyes: Reports as per HPI Reports as per HPI Cardiovascular: Reports as per HPI Respiratory: Reports as per HPI Gastrointestinal: Reports as per HPI Genitourinary: Reports as per HPI Musculoskeletal: Reports as per HPI Skin/Breast: Reports as per HPI Reports as per HPI Psychiatric: Reports as per HPI Endocrine: Reports as per HPI Hematologic/Lymphatic: Reports as per HPI Allergic/Immunologic: Reports as per HPI Mental Status Exam Mental Status Exam Narrative: Pt is alert and oriented; behavior is cooperative and calm; dressed in casual attire; mood is described as good ; eye contact appropriate; hyperverbal, not pressured or rapid; tangential, flight of ideas. denies SI/HI/VH/AH. Diagnostics Vital Signs (24Hr): Vital Signs - 24 hr 10/20/23 20:10 10/21/23 07:15 Temperature 98 F 93.7 F L Pulse Rate 73 81 Respiratory Rate 18 14 Blood Pressure 141/78 H 181/73 H Pulse Oximetry 99 97 Oxygen Delivery Method Room Air Room Air BMI result Body Mass Index 29.3 Labs 10/08/23 01:00 10/11/23 08:12 Medications Medications Current Medications Acetaminophen (Acetaminophen 325 Mg Tablet) 650 mg PO Q6H PRN PRN Reason: Headache/Pain Mild Scale (1-3) Last Admin: 10/20/23 23:41 Dose: 650 mg Al Hydroxide/Mg Hydroxide (Magnesium Hydrox/Alum Hydrox 30 Ml Oral.Susp) 30 ml PO Q6H PRN PRN Reason: Heartburn/Nausea Benztropine Mesylate (Benztropine Mesylate 1 Mg Tablet) 1 mg PO BEDTIME PRN PRN Reason: EPS Last Admin: 10/17/23 22:15 Dose: 1 mg Divalproex Sodium (Divalproex Sodium Er 500 Mg Tab.Er.24h) 1,500 mg PO BEDTIME ALPESH Last Admin: 10/20/23 22:48 Dose: 1,500 mg Hydroxyzine HCl (Hydroxyzine Hcl 25 Mg Tablet) 25 mg PO Q6H PRN PRN Reason: Anxiety Last Admin: 10/17/23 00:15 Dose: 25 mg Magnesium Hydroxide (Milk Of Magnesia 30 Ml Oral.Susp) 30 ml PO DAILY PRN PRN Reason: Constipation Olanzapine (Olanzapine Odt 10 Mg Tab.Rapdis) 10 mg TRANSLINGU Q6H PRN PRN Reason: agitation Last Admin: 10/10/23 17:32 Dose: 10 mg Quetiapine Fumarate (Quetiapine Fumarate 200 Mg Tablet) 200 mg PO BID ALPESH Last Admin: 10/21/23 08:12 Dose: 200 mg Trazodone HCl (Trazodone Hcl 50 Mg Tablet) 50 mg PO BEDTIME MRX1 PRN PRN Reason: Insomnia Last Admin: 10/17/23 22:15 Dose: 50 mg Allergies Allergies Allergy/AdvReac Type Severity Reaction Status Date / Time sesame oil Allergy Anaphylaxis Verified 10/10/23 19:24 sesame seed Allergy Anaphylaxis Verified 10/10/23 19:24 tree nut Allergy Anaphylaxis Verified 10/10/23 19:24 Assessment & Plan Assessment & Plan (1) Bipolar 1 disorder, manic, moderate: Status: Acute Code(s): F31.12 - Bipolar disorder, current episode manic without psychotic features, moderate Plan Patient is a 23 year old male with hx of Bipolar d/o who [place] [facility] [place] [facility] [place] from [facility] after visiting a friend and presenting manic and displaying sexualized behaviors in the closet. Hospital course 10/12: Continue current plan. 10/13: Continue current management and treatment plan. 10/14: On 1:1 safety checks. Disorganized. Wearing multiple layers of clothing, some clothing on backwards. Staffed notified T/W, pt walked into shower room, did not disrobe, however urinated and walked out of shower room without bathing self despite encouragement from staff. medication compliant. Pt retracted 3 day. Valporic acid 107.5 today; decreased dose from 750mg PO BID to Depakote 500mg PO BID. DC Haldol and Ativan Start: Seroquel 50mg PO BID Cogentin 1mg PO bedtime 10/15: Patient pleasant; still disorganized in speech behavior but staff agree he is doing better. Still struggling with sleep though did sleep a little better last night; attended some groups today. On approach patient says he is great and thinks quality analyst/technical writer for meeting with him. He then explains why he is great saying I like my room... I like my bed... I like these ellis... I like that[points to vent]... Patient talked a little bit about the incident leading up to this admission and said that he got dressed in the proper fashion before [he] went to meet a girl... Patient says that he has been on Depakote in the past; he agrees he stopped taking it but is unable to give any kind of timeline. Discussed medication management and patient agrees to change his outpatient dose to make it long- acting and put it at bedtime to help with insomnia; he also asks for Seroquel to be put at bedtime since he is having trouble sleeping. 10/16: Continues on 1:1 safety checks d/t disorganization. Pt unable to have logical conversation, tangential, flight of ideas. When asked if he recalled what brought him into the hospital, pt stated, yeah. I had a panic attack and a bisexual experience. Panic at the disco. 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 I'm not trying to steal your . Pt is medication compliant. 10/17: Continues on 1:1 safety checks d/t disorganization. Pt unable to have logical conversation, tangential, flight of ideas. Pt reports feeling great today; pt stated, I'm trying to work on my posture. I'm not in the Matrix. I see the world in color. I'm the question . Spoke to patient's outpatient psychiatrist, Dr. Jarett Castro, who reported hx of taking: Depakote 1500mg PO bedtime Seroquel 200mg PO BID Hx of failed meds: Olanzapine (pt did not like this med) Risperidal (pt also did not like) Latuda (made him manic) Invega discussed possibly adding lithium and increasing seroquel dose. 10/18: Pt placed on 5 minute checks; presents a bit more organized than days prior. Continues tangential, flight of ideas. Pt stated, I like the Seroquel and Depakote dance. I was away from my pulls which was the problem. I'm trying to get back to [employer]. I was in sport mode. 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 Pt reports taking lithium in the past but it made him psychotic . Continue current treatment plan. 10/19: pt strongly expresses desire to remain on present regimen for now. hyperverbal and disorganized. continue current mgmt. 10/20: presentation similar to yesterday. not interested in changing regimen. continue current mgmt. 10/21: taken off 5 minute safety checks and placed on 15's. pt is in behavioral control. However, continues hyperverbal and tangential. 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 I'm trying to grapple with the fact that I'm a closeted bisexual who needed to see the sun and is oppressed by race and fear of Covid. Why do you think I was eating the [employer] cards? Increase Seroquel to 300mg PO BID. Start: Wolbach 150mg PO bedtime Patient educated on: diagnosis, medication risk/benefits and therapeutic strategies Informed Consent: understands Reason for continued inpatient stay Substantial Risk for: med/psych decompensation Time Spent With Patient Time: Total time managing care of this patient today _20___ minutes.
--- NOTE | 2023-10-21 14:00 | PM.EVENT ---
Event Note Date of Service: 10/21/23 Event Note: Pt seen and examined with ERON Kenyon at bedside. BP rechecked manally with SBP 150s per RN. Pt has been persistently hypertenseive since arrival. 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 Pt is hyperverbal, manic, aggitated with reported poor sleep likely contributing to elevated bp readings. Would recommend trialing amlodipine 5mg daily while admitted until bp stabilizes. May not require this once zenia improves. monitor bp Thank you for allowing me to participate in this consult. Signing off at this time. Please do not hesitate to call for further questions. Time Spent With Patient Time: Total time managing care of this patient today ____ minutes.
[2023-10-21] MEDS: amLODIPine Besylate 5 MG TABLET PO (15:05)
[2023-10-21 15:06] VITALS: BP 154/89; PULSE 85; RESP 18; TEMP 36.3; O2SAT 98
[2023-10-21 18:00] VITALS: BP 142/69; PULSE 98; RESP 18; TEMP 36.6; O2SAT 99
[2023-10-21] MEDS: Lithium Carbonate 300 MG TABLET 150 MG PO (22:20)
[2023-10-21] MEDS: Divalproex Sodium ER 500 MG TAB.ER.24H 1500 MG PO (22:21)
[2023-10-21] MEDS: QUEtiapine Fumarate 300 MG TABLET PO (22:21)
[2023-10-21] MEDS: traZODone HCL 50 MG TABLET PO (23:34)
[2023-10-22 07:10] VITALS: BP 121/58; PULSE 63; RESP 12; TEMP 36.4; O2SAT 100
[2023-10-22] MEDS: amLODIPine Besylate 5 MG TABLET PO (08:47)
[2023-10-22] MEDS: QUEtiapine Fumarate 300 MG TABLET PO ×2 (08:47→22:51)
--- NOTE | 2023-10-22 08:59 | HO.PSYCHPN ---
Subjective Subjective Date of Service: 10/22/23 Reason For Visit: crisis Subjective Notes: Conditional Voluntary Interim History: Reviewed with . Continues manic with hyperverbal speech and tangential thought process. Remains in behavioral control. denies any side effects from medications. Increase [place] to 300mg PO bedtime Medication Compliance: Yes Side effects from medications: No Attending Groups: Intermittent Review of Systems Constitutional: Reports as per HPI Eyes: Reports as per HPI Reports as per HPI Cardiovascular: Reports as per HPI Respiratory: Reports as per HPI Gastrointestinal: Reports as per HPI Genitourinary: Reports as per HPI Musculoskeletal: Reports as per HPI Skin/Breast: Reports as per HPI Reports as per HPI Psychiatric: Reports as per HPI Endocrine: Reports as per HPI Hematologic/Lymphatic: Reports as per HPI Allergic/Immunologic: Reports as per HPI Mental Status Exam Mental Status Exam Narrative: Pt is alert and oriented; behavior is cooperative and calm; dressed in casual attire; mood is described as good ; eye contact appropriate; hyperverbal, not pressured or rapid; tangential, flight of ideas. denies SI/HI/VH/AH. Diagnostics Vital Signs (24Hr): Vital Signs - 24 hr 10/21/23 15:06 10/21/23 18:00 10/22/23 07:10 Temperature 97.3 F 98 F 97.5 F Pulse Rate 85 98 63 Respiratory Rate 18 18 12 Blood Pressure 154/89 H 142/69 H 121/58 L Pulse Oximetry 98 99 100 Oxygen Delivery Method Room Air Room Air Room Air BMI result Body Mass Index 29.3 Labs 10/08/23 01:00 10/11/23 08:12 Medications Medications Current Medications Acetaminophen (Acetaminophen 325 Mg Tablet) 650 mg PO Q6H PRN PRN Reason: Headache/Pain Mild Scale (1-3) Last Admin: 10/20/23 23:41 Dose: 650 mg Al Hydroxide/Mg Hydroxide (Magnesium Hydrox/Alum Hydrox 30 Ml Oral.Susp) 30 ml PO Q6H PRN PRN Reason: Heartburn/Nausea Amlodipine Besylate (Amlodipine Besylate 5 Mg Tablet) 5 mg PO DAILY ALPESH; Protocol Last Admin: 10/22/23 08:47 Dose: 5 mg Benztropine Mesylate (Benztropine Mesylate 1 Mg Tablet) 1 mg PO BEDTIME PRN PRN Reason: EPS Last Admin: 02/01/24 22:15 Dose: 1 mg Divalproex Sodium (Divalproex Sodium Er 500 Mg Tab.Er.24h) 1,500 mg PO BEDTIME ALPESH Last Admin: 10/21/23 22:21 Dose: 1,500 mg Hydroxyzine HCl (Hydroxyzine Hcl 25 Mg Tablet) 25 mg PO Q6H PRN PRN Reason: Anxiety Last Admin: 10/17/23 00:15 Dose: 25 mg [place] Carbonate ([place] Carbonate 300 Mg Tablet) 150 mg PO BEDTIME [facility] Last Admin: 10/21/23 22:20 Dose: 150 mg Magnesium Hydroxide (Milk Of Magnesia 30 Ml Oral.Susp) 30 ml PO DAILY PRN PRN Reason: Constipation Quetiapine Fumarate (Quetiapine Fumarate 300 Mg Tablet) 300 mg PO BID [facility] Last Admin: 10/22/23 08:47 Dose: 300 mg Trazodone HCl (Trazodone Hcl 50 Mg Tablet) 50 mg PO BEDTIME MRX1 PRN PRN Reason: Insomnia Last Admin: 10/21/23 23:34 Dose: 50 mg Allergies Allergies Allergy/AdvReac Type Severity Reaction Status Date / Time sesame oil Allergy Anaphylaxis Verified 10/10/23 19:24 sesame seed Allergy Anaphylaxis Verified 10/10/23 19:24 tree nut Allergy Anaphylaxis Verified 10/10/23 19:24 Assessment & Plan Assessment & Plan (1) Bipolar 1 disorder, manic, moderate: Status: Acute Code(s): F31.12 - Bipolar disorder, current episode manic without psychotic features, moderate Plan Patient is a 23 year old male with hx of Bipolar d/o who presented to [facility] via EMS from [facility] after visiting a friend and presenting manic and displaying sexualized behaviors in the closet. Hospital course 10/12: Continue current plan. 10/13: Continue current management and treatment plan. 10/14: On 1:1 safety checks. Disorganized. Wearing multiple layers of clothing, some clothing on backwards. Staffed notified T/W, pt walked into shower room, did not disrobe, however urinated and walked out of shower room without bathing self despite encouragement from staff. medication compliant. Pt retracted 3 day. Valporic acid 107.5 today; decreased dose from 750mg PO BID to Depakote 500mg PO BID. DC Haldol and Ativan Start: Seroquel 50mg PO BID Cogentin 1mg PO bedtime 10/15: Patient pleasant; still disorganized in speech behavior but staff agree he is doing better. Still struggling with sleep though did sleep a little better last night; attended some groups today. On approach patient says he is great and thinks report writer for meeting with him. He then explains why he is great saying I like my room... I like my bed... I like these ellis... I like that[points to vent]... Patient talked a little bit about the incident leading up to this admission and said that he got dressed in the proper fashion before [he] went to meet a girl... Patient says that he has been on Depakote in the past; he agrees he stopped taking it but is unable to give any kind of timeline. Discussed medication management and patient agrees to change his outpatient dose to make it long-acting and put it at bedtime to help with insomnia; he also asks for Seroquel to be put at bedtime since he is having trouble sleeping. 10/16: Continues on 1:1 safety checks d/t disorganization. Pt unable to have logical conversation, tangential, flight of ideas. When asked if he recalled what brought him into the hospital, pt stated, yeah. I had a panic attack and a bisexual experience. Panic at the disco. 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 I'm not trying to steal your . Pt is medication compliant. 10/17: Continues on 1:1 safety checks d/t disorganization. Pt unable to have logical conversation, tangential, flight of ideas. Pt reports feeling great today; pt stated, I'm trying to work on my posture. I'm not in the Matrix. I see the world in color. I'm the question . Spoke to patient's outpatient psychiatrist, Dr. Jarett Castro, who reported hx of taking: Depakote 1500mg PO bedtime Seroquel 200mg PO BID Hx of failed meds: Olanzapine (pt did not like this med) Risperidal (pt also did not like) Latuda (made him manic) Invega discussed possibly adding lithium and increasing seroquel dose. 10/18: Pt placed on 5 minute checks; presents a bit more organized than days prior. Continues tangential, flight of ideas. Pt stated, I like the Seroquel and Depakote dance. I was away from my pulls which was the problem. I'm trying to get back to [employer]. I was in sport mode. 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 Pt reports taking lithium in the past but it made him psychotic . Continue current treatment plan. 10/19: pt strongly expresses desire to remain on present regimen for now. hyperverbal and disorganized. continue current mgmt. 10/20: presentation similar to yesterday. not interested in changing regimen. continue current mgmt. 10/21: taken off 5 minute safety checks and placed on 15's. pt is in behavioral control. However, continues hyperverbal and tangential. 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 I'm trying to grapple with the fact that I'm a closeted bisexual who needed to see the sun and is oppressed by race and fear of Covid. Why do you think I was eating the [employer] cards? Increase Seroquel to 300mg PO BID. Start: [place] 150mg PO bedtime 10/22: Continues manic with hyperverbal speech and tangential thought process. Remains in behavioral control. denies any side effects from medications. Increase [place] to 300mg PO bedtime Patient educated on: diagnosis and medication risk/benefits Informed Consent: understands Reason for continued inpatient stay Substantial Risk for: med/psych decompensation Time Spent With Patient Time: Total time managing care of this patient today _20___ minutes.
[2023-10-22 19:45] VITALS: BP 122/67; PULSE 81; RESP 16; TEMP 36.8; O2SAT 96
[2023-10-22] MEDS: Divalproex Sodium ER 500 MG TAB.ER.24H 1500 MG PO (22:50)
[2023-10-22] MEDS: Lithium Carbonate ER 300 MG TABLET.ER PO (22:51)
[2023-10-23 07:50] VITALS: BP 125/60; PULSE 85; RESP 16; TEMP 36.1; O2SAT 100
[2023-10-23] MEDS: QUEtiapine Fumarate 300 MG TABLET PO (08:55)
[2023-10-23] MEDS: amLODIPine Besylate 5 MG TABLET PO (08:55)
--- NOTE | 2023-10-23 09:11 | P.PNPSI_ITS ---
Subjective Subjective Date of Service: 10/23/23 Reason For Visit: crisis Subjective Notes: Conditional Voluntary Interim History: Reviewed with . Pt continues somewhat hyperverbal, appears to be slowing down. Continues tangential. pt stated, If Dr. Eulalio Castro thinks I need to do something then by God I will do it . denies any side effects from medications. social with peers. attending groups. Increase Seroquel to 400mg PO BID Medication Compliance: Yes Side effects from medications: No Attending Groups: Yes Review of Systems Constitutional: Reports as per HPI Eyes: Reports as per HPI Reports as per HPI Cardiovascular: Reports as per HPI Respiratory: Reports as per HPI Gastrointestinal: Reports as per HPI Genitourinary: Reports as per HPI Musculoskeletal: Reports as per HPI Skin/Breast: Reports as per HPI Reports as per HPI Psychiatric: Reports as per HPI Endocrine: Reports as per HPI Hematologic/Lymphatic: Reports as per HPI Allergic/Immunologic: Reports as per HPI Mental Status Exam Mental Status Exam Narrative: Pt is alert and oriented; behavior is cooperative and calm; dressed in casual attire; mood is described as good ; eye contact appropriate; hyperverbal, not pressured or rapid; tangential, flight of ideas. denies SI/HI/VH/AH. Diagnostics Vital Signs (24Hr): Vital Signs - 24 hr 10/22/23 19:45 10/23/23 07:50 Temperature 98.3 F 96.9 F Pulse Rate 81 85 Respiratory Rate 16 16 Blood Pressure 122/67 125/60 Pulse Oximetry 96 100 Oxygen Delivery Method Room Air Room Air BMI result Body Mass Index 29.3 Labs 10/08/23 01:00 10/11/23 08:12 Medications Medications Current Medications Acetaminophen (Acetaminophen 325 Mg Tablet) 650 mg PO Q6H PRN PRN Reason: Headache/Pain Mild Scale (1-3) Last Admin: 10/20/23 23:41 Dose: 650 mg Al Hydroxide/Mg Hydroxide (Magnesium Hydrox/Alum Hydrox 30 Ml Oral.Susp) 30 ml PO Q6H PRN PRN Reason: Heartburn/Nausea Amlodipine Besylate (Amlodipine Besylate 5 Mg Tablet) 5 mg PO DAILY ALPESH; Protocol Last Admin: 10/23/23 08:55 Dose: 5 mg Benztropine Mesylate (Benztropine Mesylate 1 Mg Tablet) 1 mg PO BEDTIME PRN PRN Reason: EPS Last Admin: 10/17/23 22:15 Dose: 1 mg Divalproex Sodium (Divalproex Sodium Er 500 Mg Tab.Er.24h) 1,500 mg PO BEDTIME ALPESH Last Admin: 10/22/23 22:50 Dose: 1,500 mg Hydroxyzine HCl (Hydroxyzine Hcl 25 Mg Tablet) 25 mg PO Q6H PRN PRN Reason: Anxiety Last Admin: 10/17/23 00:15 Dose: 25 mg [place] Carbonate ([place] Carbonate Er 300 Mg Tablet.Er) 300 mg PO BEDTIME [facility] Last Admin: 10/22/23 22:51 Dose: 300 mg Magnesium Hydroxide (Milk Of Magnesia 30 Ml Oral.Susp) 30 ml PO DAILY PRN PRN Reason: Constipation Quetiapine Fumarate (Quetiapine Fumarate 300 Mg Tablet) 300 mg PO BID [facility] Last Admin: 10/23/23 08:55 Dose: 300 mg Trazodone HCl (Trazodone Hcl 50 Mg Tablet) 50 mg PO BEDTIME MRX1 PRN PRN Reason: Insomnia Last Admin: 10/21/23 23:34 Dose: 50 mg Allergies Allergies Allergy/AdvReac Type Severity Reaction Status Date / Time sesame oil Allergy Anaphylaxis Verified 10/10/23 19:24 sesame seed Allergy Anaphylaxis Verified 10/10/23 19:24 tree nut Allergy Anaphylaxis Verified 10/10/23 19:24 Assessment & Plan Assessment & Plan (1) Bipolar 1 disorder, manic, moderate: Status: Acute Code(s): F31.12 - Bipolar disorder, current episode manic without psychotic features, moderate Plan Patient is a 23 year old male with hx of Bipolar d/o who presented to [facility] via EMS from [facility] after visiting a friend and presenting manic and displaying sexualized behaviors in the closet. Hospital course 10/12: Continue current plan. 10/13: Continue current management and treatment plan. 10/14: On 1:1 safety checks. Disorganized. Wearing multiple layers of clothing, some clothing on backwards. Staffed notified T/W, pt walked into shower room, did not disrobe, however urinated and walked out of shower room without bathing self despite encouragement from staff. medication compliant. Pt retracted 3 day. Valporic acid 107.5 today; decreased dose from 750mg PO BID to Depakote 500mg PO BID. DC Haldol and Ativan Start: Seroquel 50mg PO BID Cogentin 1mg PO bedtime 10/15: Patient pleasant; still disorganized in speech behavior but staff agree he is doing better. Still struggling with sleep though did sleep a little better last night; attended some groups today. 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 He then explains why he is great saying I like my room... I like my bed... I like these ellis... I like that[points to vent]... Patient talked a little bit about the incident leading up to this admission and said that he got dressed in the proper fashion before [he] went to meet a girl... Patient says that he has been on Depakote in the past; he agrees he stopped taking it but is unable to give any kind of timeline. Discussed medication management and patient agrees to change his outpatient dose to make it long- acting and put it at bedtime to help with insomnia; he also asks for Seroquel to be put at bedtime since he is having trouble sleeping. 10/16: Continues on 1:1 safety checks d/t disorganization. Pt unable to have logical conversation, tangential, flight of ideas. When asked if he recalled what brought him into the hospital, pt stated, yeah. I had a panic attack and a bisexual experience. Panic at the disco. 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 I'm not trying to steal your . Pt is medication compliant. 10/17: Continues on 1:1 safety checks d/t disorganization. Pt unable to have logical conversation, tangential, flight of ideas. Pt reports feeling great today; pt stated, I'm trying to work on my posture. I'm not in the Matrix. I see the world in color. I'm the question . Spoke to patient's outpatient psychiatrist, Dr. Jarett Castro, who reported hx of taking: Depakote 1500mg PO bedtime Seroquel 200mg PO BID Hx of failed meds: Olanzapine (pt did not like this med) Risperidal (pt also did not like) Latuda (made him manic) Invega discussed possibly adding lithium and increasing seroquel dose. 10/18: Pt placed on 5 minute checks; presents a bit more organized than days prior. Continues tangential, flight of ideas. Pt stated, I like the Seroquel and Depakote dance. I was away from my pulls which was the problem. I'm trying to get back to [employer]. I was in sport mode. 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 Pt reports taking lithium in the past but it made him psychotic . Continue current treatment plan. 10/19: pt strongly expresses desire to remain on present regimen for now. hyperverbal and disorganized. continue current mgmt. 10/20: presentation similar to yesterday. not interested in changing regimen. continue current mgmt. 10/21: taken off 5 minute safety checks and placed on 15's. pt is in behavioral control. However, continues hyperverbal and tangential. 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 I'm trying to grapple with the fact that I'm a closeted bisexual who needed to see the sun and is oppressed by race and fear of Covid. Why do you think I was eating the [employer] cards? Increase Seroquel to 300mg PO BID. Start: [place] 150mg PO bedtime 10/22: Continues manic with hyperverbal speech and tangential thought process. Remains in behavioral control. denies any side effects from medications. Increase [place] to 300mg PO bedtime 10/23: Pt continues somewhat hyperverbal, appears to be slowing down. Continues tangential. pt stated, If Dr. Eulalio Castro thinks I need to do something then by God I will do it . denies any side effects from medications. social with peers. attending groups. Increase Seroquel to 400mg PO BID Patient educated on: diagnosis and medication risk/benefits Informed Consent: understands Reason for continued inpatient stay Substantial Risk for: med/psych decompensation Time Spent With Patient Time: Total time managing care of this patient today _20___ minutes.
[2023-10-23 19:40] VITALS: BP 158/89; PULSE 99; RESP 16; TEMP 36.6; O2SAT 98
[2023-10-23] MEDS: Lithium Carbonate ER 300 MG TABLET.ER PO (23:01)
[2023-10-23] MEDS: Divalproex Sodium ER 500 MG TAB.ER.24H 1500 MG PO (23:01)
[2023-10-23] MEDS: QUEtiapine Fumarate 400 MG TABLET PO (23:02)
[2023-10-24 07:00] VITALS: BMI 29.3
[2023-10-24 07:10] VITALS: BP 150/66; PULSE 89; RESP 16; TEMP 36.1; O2SAT 100
[2023-10-24] MEDS: QUEtiapine Fumarate 400 MG TABLET PO (08:44)
[2023-10-24] MEDS: amLODIPine Besylate 5 MG TABLET PO (08:44)
--- NOTE | 2023-10-24 09:13 | HO.PSYCHPN ---
Subjective Subjective Date of Service: 10/24/23 Reason For Visit: crisis Subjective Notes: Conditional Voluntary Interim History: Reviewed with . Continues similar to yesterday. Pt reports feeling good ; pt stated, I feel cognitively perfect. I am medicine compliant. I know what they do and the side effects . Pt presents with intense eye contact at times. Medication Compliance: Yes Side effects from medications: No Attending Groups: Yes Review of Systems Constitutional: Reports as per HPI Eyes: Reports as per HPI Reports as per HPI Cardiovascular: Reports as per HPI Respiratory: Reports as per HPI Gastrointestinal: Reports as per HPI Genitourinary: Reports as per HPI Musculoskeletal: Reports as per HPI Skin/Breast: Reports as per HPI Reports as per HPI Psychiatric: Reports as per HPI Endocrine: Reports as per HPI Hematologic/Lymphatic: Reports as per HPI Allergic/Immunologic: Reports as per HPI Mental Status Exam Mental Status Exam Narrative: Pt is alert and oriented; behavior is cooperative and calm; dressed in casual attire; mood is described as good ; eye contact intense at times; hyperverbal, not pressured or rapid; some organized but continues tangential, flight of ideas. denies SI/HI/VH/AH. Diagnostics Vital Signs (24Hr): Vital Signs - 24 hr 10/23/23 19:40 10/24/23 07:10 Temperature 97.9 F 96.9 F Pulse Rate 99 89 Respiratory Rate 16 16 Blood Pressure 158/89 H 150/66 H Pulse Oximetry 98 100 Oxygen Delivery Method Room Air Room Air BMI result Body Mass Index 29.3 Labs 10/08/23 01:00 10/11/23 08:12 Medications Medications Current Medications Acetaminophen (Acetaminophen 325 Mg Tablet) 650 mg PO Q6H PRN PRN Reason: Headache/Pain Mild Scale (1-3) Last Admin: 10/20/23 23:41 Dose: 650 mg Al Hydroxide/Mg Hydroxide (Magnesium Hydrox/Alum Hydrox 30 Ml Oral.Susp) 30 ml PO Q6H PRN PRN Reason: Heartburn/Nausea Amlodipine Besylate (Amlodipine Besylate 5 Mg Tablet) 5 mg PO DAILY ALPESH; Protocol Last Admin: 10/24/23 08:44 Dose: 5 mg Benztropine Mesylate (Benztropine Mesylate 1 Mg Tablet) 1 mg PO BEDTIME PRN PRN Reason: EPS Last Admin: 10/17/23 22:15 Dose: 1 mg Divalproex Sodium (Divalproex Sodium Er 500 Mg Tab.Er.24h) 1,500 mg PO BEDTIME ALPESH Last Admin: 10/23/23 23:01 Dose: 1,500 mg Hydroxyzine HCl (Hydroxyzine Hcl 25 Mg Tablet) 25 mg PO Q6H PRN PRN Reason: Anxiety Last Admin: 10/17/23 00:15 Dose: 25 mg [place] Carbonate ([place] Carbonate Er 300 Mg Tablet.Er) 300 mg PO BEDTIME ALPESH Last Admin: 10/23/23 23:01 Dose: 300 mg Magnesium Hydroxide (Milk Of Magnesia 30 Ml Oral.Susp) 30 ml PO DAILY PRN PRN Reason: Constipation Quetiapine Fumarate (Quetiapine Fumarate 400 Mg Tablet) 400 mg PO BID COUNTS INCLUDE 234 BEDS AT THE [facility] Last Admin: 10/24/23 08:44 Dose: 400 mg Trazodone HCl (Trazodone Hcl 50 Mg Tablet) 50 mg PO BEDTIME MRX1 PRN PRN Reason: Insomnia Last Admin: 10/21/23 23:34 Dose: 50 mg Allergies Allergies Allergy/AdvReac Type Severity Reaction Status Date / Time sesame oil Allergy Anaphylaxis Verified 10/10/23 19:24 sesame seed Allergy Anaphylaxis Verified 10/10/23 19:24 tree nut Allergy Anaphylaxis Verified 10/10/23 19:24 Assessment & Plan Assessment & Plan (1) Bipolar 1 disorder, manic, moderate: Status: Acute Code(s): F31.12 - Bipolar disorder, current episode manic without psychotic features, moderate Plan Patient is a 23 year old male with hx of Bipolar d/o who [place] [facility] [place] [facility] after visiting a friend and presenting manic and displaying sexualized behaviors in the closet. Hospital course 10/12: Continue current plan. 10/13: Continue current management and treatment plan. 10/14: On 1:1 safety checks. Disorganized. Wearing multiple layers of clothing, some clothing on backwards. Staffed notified T/W, pt walked into shower room, did not disrobe, however urinated and walked out of shower room without bathing self despite encouragement from staff. medication compliant. Pt retracted 3 day. Valporic acid 107.5 today; decreased dose from 750mg PO BID to Depakote 500mg PO BID. DC Haldol and Ativan Start: Seroquel 50mg PO BID Cogentin 1mg PO bedtime 10/15: Patient pleasant; still disorganized in speech behavior but staff agree he is doing better. Still struggling with sleep though did sleep a little better last night; attended some groups today. On approach patient says he is great and thinks freelance copywriter for meeting with him. He then explains why he is great saying I like my room... I like my bed... I like these ellis... I like that[points to vent]... Patient talked a little bit about the incident leading up to this admission and said that he got dressed in the proper fashion before [he] went to meet a girl... Patient says that he has been on Depakote in the past; he agrees he stopped taking it but is unable to give any kind of timeline. Discussed medication management and patient agrees to change his outpatient dose to make it long-acting and put it at bedtime to help with insomnia; he also asks for Seroquel to be put at bedtime since he is having trouble sleeping. 10/16: Continues on 1:1 safety checks d/t disorganization. Pt unable to have logical conversation, tangential, flight of ideas. When asked if he recalled what brought him into the hospital, pt stated, yeah. I had a panic attack and a bisexual experience. Panic at the disco. 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 I'm not trying to steal your . Pt is medication compliant. 10/17: Continues on 1:1 safety checks d/t disorganization. Pt unable to have logical conversation, tangential, flight of ideas. Pt reports feeling great today; pt stated, I'm trying to work on my posture. I'm not in the Matrix. I see the world in color. I'm the question . Spoke to patient's outpatient psychiatrist, Dr. Jarett Castro, who reported hx of taking: Depakote 1500mg PO bedtime Seroquel 200mg PO BID Hx of failed meds: Olanzapine (pt did not like this med) Risperidal (pt also did not like) Latuda (made him manic) Invega discussed possibly adding lithium and increasing seroquel dose. 10/18: Pt placed on 5 minute checks; presents a bit more organized than days prior. Continues tangential, flight of ideas. Pt stated, I like the Seroquel and Depakote dance. I was away from my pulls which was the problem. I'm trying to get back to [employer]. I was in sport mode. 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 Pt reports taking lithium in the past but it made him psychotic . Continue current treatment plan. 10/19: pt strongly expresses desire to remain on present regimen for now. hyperverbal and disorganized. continue current mgmt. 10/20: presentation similar to yesterday. not interested in changing regimen. continue current mgmt. 10/21: taken off 5 minute safety checks and placed on 15's. pt is in behavioral control. However, continues hyperverbal and tangential. 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 I'm trying to grapple with the fact that I'm a closeted bisexual who needed to see the sun and is oppressed by race and fear of Covid. Why do you think I was eating the [employer] cards? Increase Seroquel to 300mg PO BID. Start: [place] 150mg PO bedtime 10/22: Continues manic with hyperverbal speech and tangential thought process. Remains in behavioral control. denies any side effects from medications. Increase [place] to 300mg PO bedtime 10/23: Pt continues somewhat hyperverbal, appears to be slowing down. Continues tangential. pt stated, If Dr. Eulalio Castro thinks I need to do something then by God I will do it . denies any side effects from medications. social with peers. attending groups. Increase Seroquel to 400mg PO BID 10/24: Continues similar to yesterday. Pt reports feeling good ; pt stated, I feel cognitively perfect. I am medicine compliant. I know what they do and the side effects . Pt presents with intense eye contact at times. decreased seroquel to 200mg PO BID. Patient educated on: diagnosis, medication risk/benefits and therapeutic strategies Informed Consent: understands Reason for continued inpatient stay Substantial Risk for: med/psych decompensation Time Spent With Patient Time: Total time managing care of this patient today _20___ minutes.
[2023-10-24 09:48] VITALS: BP 181/93; PULSE 126; RESP 18; O2SAT 97
[2023-10-24] MEDS: LORazepam 0.5 MG TABLET PO (10:18)
[2023-10-24 10:45] VITALS: BP 146/87; PULSE 112
[2023-10-24] MEDS: Acetaminophen 325 MG TABLET 650 MG PO (15:48)
[2023-10-24 16:18] VITALS: BP 143/79; PULSE 90
[2023-10-24 20:00] VITALS: BP 149/70; PULSE 91; RESP 16; TEMP 36.4; O2SAT 96
[2023-10-24] MEDS: Divalproex Sodium ER 500 MG TAB.ER.24H 1500 MG PO (22:33)
[2023-10-24] MEDS: QUEtiapine Fumarate 200 MG TABLET PO (22:33)
[2023-10-24] MEDS: Lithium Carbonate ER 300 MG TABLET.ER PO (22:33)
[2023-10-25 07:40] VITALS: BP 149/72; PULSE 68; RESP 16; TEMP 36.1; O2SAT 98
[2023-10-25] MEDS: QUEtiapine Fumarate 200 MG TABLET PO ×2 (08:40→22:58)
[2023-10-25] MEDS: amLODIPine Besylate 5 MG TABLET PO (08:40)
[2023-10-25 08:45] LABS: MANUAL DIFF FLAG NO
[2023-10-25 08:47] LABS: Basophils Percent Auto 0.5 % (0-2); Eosinophils Absolute Auto 0.8 X10*3/uL (0.0-0.4); Eosinophils Percent Auto 10.3 % (0-4); Hematocrit 42.8 % (42.0-52.0); Hemoglobin 14.2 g/dl (14.0-18.0); Imm Gran Abs Auto 0.01 X10*3/uL (0.00-0.03); Imm Gran Pct Auto 0.1 % (0.0-0.4); Lymphocytes Absolute Auto 2.8 X10*3/uL (1.2-4.9); Lymphocytes Percent Auto 38.8 % (20-40); Mean Corpuscular HGB Conc 33.2 g/dl (31.0-36.0); Mean Corpuscular Hemoglobin 29.5 pg (27.0-33.0); Mean Corpuscular Volume 88.8 fL (80.0-98.0); Mean Platelet Volume 9.4 fL (9.4-12.4); Monocytes Absolute Auto 0.6 X10*3/uL (0.1-1.2); Monocytes Percent Auto 7.8 % (2-11); Neutrophils Absolute Auto 3.1 x10*3/uL (2.0-8.3); Neutrophils Percent Auto 42.5 % (45-73); Platelet Count 262 X10*3/uL (160-400); Red Blood Count 4.82 X10*6/uL (4.60-5.80); Red Cell Distribution Width 13.2 % (11.0-16.0); White Blood Count 7.3 X10*3/uL (4.8-10.8)
[2023-10-25 08:55] LABS: Ammonia 40 umol/L (13-55); Lithium 0.26 mmol/L (0.60-1.20)
[2023-10-25 09:00] LABS: Valproate 99.6 mcg/mL (50.0-100.0)
[2023-10-25 09:06] LABS: Alanine Aminotransferase 10 U/L (0-40); Albumin Level 4.3 g/dL (3.5-5.0); Alkaline Phosphatase 56 U/L (39-117); Anion Gap 12 (12-20); Aspartate Amino Transferase 14 U/L (5-37); Bilirubin Direct 0.1 mg/dL (0.0-0.5); Bilirubin Total 0.5 mg/dL (0.0-1.0); Blood Urea Nitrogen 12 mg/dL (9-16); Calcium 9.6 mg/dL (8.4-10.2); Carbon Dioxide 27 mmol/L (22-29); Chloride 104 mmol/L (96-108); Estimated Glomerular Filt Rate > 60; Glucose Random 90 mg/dL (60-115); Potassium 4.2 mmol/L (3.3-5.1); Sodium 139 mmol/L (135-145); Total Protein 6.9 g/dL (6.5-8.0)
--- NOTE | 2023-10-25 09:10 | HO.PSYCHPN ---
Subjective Subjective Date of Service: 10/25/23 Reason For Visit: crisis Subjective Notes: Conditional Voluntary Interim History: Reviewed with . Pt continues to present tangential and with flight of ideas. Pt stated, I know I'm not in the Matrix. I am Jacky Alves. I'm trying to relearn my eating habits. T/W and criminal justice social worker (Shannon) present for family meeting with patient's mother. Patient's mother reported she felt pt is still not at baseline and continues psychotic. She reported hx of positive effect with invega and zyprexa. Pt reports he does not want to take risperidal or latuda d/t negative symptoms while taking them in the past. Decrease Seroquel to 200mg PO bedtime Start: Invega 3mg PO bedtime Medication Compliance: Yes Side effects from medications: No Attending Groups: Yes Review of Systems Constitutional: Reports as per HPI Eyes: Reports as per HPI Reports as per HPI Cardiovascular: Reports as per HPI Respiratory: Reports as per HPI Gastrointestinal: Reports as per HPI Genitourinary: Reports as per HPI Musculoskeletal: Reports as per HPI Skin/Breast: Reports as per HPI Reports as per HPI Psychiatric: Reports as per HPI Endocrine: Reports as per HPI Hematologic/Lymphatic: Reports as per HPI Allergic/Immunologic: Reports as per HPI Mental Status Exam Mental Status Exam Narrative: Pt is alert and oriented; behavior is cooperative and calm; dressed in casual attire; mood is described as good ; eye contact intense at times; hyperverbal, not pressured or rapid; some organized but continues tangential, flight of ideas. denies SI/HI/VH/AH. Diagnostics Vital Signs (24Hr): Vital Signs - 24 hr 10/24/23 09:48 10/24/23 10:45 10/24/23 16:18 Temperature Pulse Rate 126 H 112 H 90 Respiratory Rate 18 Blood Pressure 181/93 H 146/87 H 143/79 H Pulse Oximetry 97 Oxygen Delivery Method Room Air 10/24/23 20:00 10/25/23 07:40 Temperature 97.5 F 97 F Pulse Rate 91 68 Respiratory Rate 16 16 Blood Pressure 149/70 H 149/72 H Pulse Oximetry 96 98 Oxygen Delivery Method Room Air Room Air BMI result Body Mass Index 29.3 Labs 10/25/23 08:24 10/25/23 08:24 Labs: Laboratory Results - last 48 hr 10/25/23 08:24 WBC 7.3 RBC 4.82 Hgb 14.2 Hct 42.8 MCV 88.8 MCH 29.5 MCHC 33.2 RDW 13.2 Plt Count 262 MPV 9.4 Immature Gran % (Auto) 0.1 Neut % (Auto) 42.5 L Lymph % (Auto) 38.8 Door % (Auto) 7.8 Eos % (Auto) 10.3 H Baso % (Auto) 0.5 Lymph # (Auto) 2.8 Door # (Auto) 0.6 Eos # (Auto) 0.8 H Baso # (Auto) 0.0 Abs Immat Gran (auto) 0.01 Absolute Neuts (auto) 3.1 Absolute Nucleated RBC 0.000 Nucleated RBC % (auto) 0.0 Sodium 139 Potassium 4.2 Chloride 104 Carbon Dioxide 27 Anion Gap 12 BUN 12 Creatinine 0.77 Estim Creat Clear Calc 181.0 Estimated GFR > 60 Random Glucose 90 Calcium 9.6 Total Bilirubin 0.5 Direct Bilirubin 0.1 AST 14 ALT 10 Alkaline Phosphatase 56 Ammonia 40 Total Creatine Kinase 75 Total Protein 6.9 Albumin 4.3 Valproic Acid 99.6 [place] 0.26 L Medications Medications Current Medications Acetaminophen (Acetaminophen 325 Mg Tablet) 650 mg PO Q6H PRN PRN Reason: Headache/Pain Mild Scale (1-3) Last Admin: 10/24/23 15:48 Dose: 650 mg Al Hydroxide/Mg Hydroxide (Magnesium Hydrox/Alum Hydrox 30 Ml Oral.Susp) 30 ml PO Q6H PRN PRN Reason: Heartburn/Nausea Amlodipine Besylate (Amlodipine Besylate 5 Mg Tablet) 5 mg PO DAILY ALPESH; Protocol Last Admin: 10/25/23 08:40 Dose: 5 mg Benztropine Mesylate (Benztropine Mesylate 1 Mg Tablet) 1 mg PO BEDTIME PRN PRN Reason: EPS Last Admin: 10/17/23 22:15 Dose: 1 mg Divalproex Sodium (Divalproex Sodium Er 500 Mg Tab.Er.24h) 1,500 mg PO BEDTIME ALPESH Last Admin: 10/24/23 22:33 Dose: 1,500 mg Hydroxyzine HCl (Hydroxyzine Hcl 25 Mg Tablet) 25 mg PO Q6H PRN PRN Reason: Anxiety Last Admin: 10/17/23 00:15 Dose: 25 mg [place] Carbonate ([place] Carbonate Er 300 Mg Tablet.Er) 300 mg PO BEDTIME ALPESH Last Admin: 10/24/23 22:33 Dose: 300 mg Magnesium Hydroxide (Milk Of Magnesia 30 Ml Oral.Susp) 30 ml PO DAILY PRN PRN Reason: Constipation Quetiapine Fumarate (Quetiapine Fumarate 200 Mg Tablet) 200 mg PO BID ALPESH Last Admin: 10/25/23 08:40 Dose: 200 mg Trazodone HCl (Trazodone Hcl 50 Mg Tablet) 50 mg PO BEDTIME MRX1 PRN PRN Reason: Insomnia Last Admin: 10/21/23 23:34 Dose: 50 mg Allergies Allergies Allergy/AdvReac Type Severity Reaction Status Date / Time sesame oil Allergy Anaphylaxis Verified 10/10/23 19:24 sesame seed Allergy Anaphylaxis Verified 10/10/23 19:24 tree nut Allergy Anaphylaxis Verified 10/10/23 19:24 Assessment & Plan Assessment & Plan (1) Bipolar 1 disorder, manic, moderate: Status: Acute Code(s): F31.12 - Bipolar disorder, current episode manic without psychotic features, moderate Plan Patient is a 23 year old male with hx of Bipolar d/o who presented to [facility] via EMS from [facility] after visiting a friend and presenting manic and displaying sexualized behaviors in the closet. Hospital course 10/12: Continue current plan. 10/13: Continue current management and treatment plan. 10/14: On 1:1 safety checks. Disorganized. Wearing multiple layers of clothing, some clothing on backwards. Staffed notified T/W, pt walked into shower room, did not disrobe, however urinated and walked out of shower room without bathing self despite encouragement from staff. medication compliant. Pt retracted 3 day. Valporic acid 107.5 today; decreased dose from 750mg PO BID to Depakote 500mg PO BID. DC Haldol and Ativan Start: Seroquel 50mg PO BID Cogentin 1mg PO bedtime 10/15: Patient pleasant; still disorganized in speech behavior but staff agree he is doing better. Still struggling with sleep though did sleep a little better last night; attended some groups today. On approach patient says he is great and thinks medical technical writer for meeting with him. He then explains why he is great saying I like my room... I like my bed... I like these ellis... I like that[points to vent]... Patient talked a little bit about the incident leading up to this admission and said that he got dressed in the proper fashion before [he] went to meet a girl... Patient says that he has been on Depakote in the past; he agrees he stopped taking it but is unable to give any kind of timeline. Discussed medication management and patient agrees to change his outpatient dose to make it long-acting and put it at bedtime to help with insomnia; he also asks for Seroquel to be put at bedtime since he is having trouble sleeping. 10/16: Continues on 1:1 safety checks d/t disorganization. Pt unable to have logical conversation, tangential, flight of ideas. When asked if he recalled what brought him into the hospital, pt stated, yeah. I had a panic attack and a bisexual experience. Panic at the disco. 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 I'm not trying to steal your . Pt is medication compliant. 10/17: Continues on 1:1 safety checks d/t disorganization. Pt unable to have logical conversation, tangential, flight of ideas. Pt reports feeling great today; pt stated, I'm trying to work on my posture. I'm not in the Matrix. I see the world in color. I'm the question . Spoke to patient's outpatient psychiatrist, Dr. Jarett Castro, who reported hx of taking: Depakote 1500mg PO bedtime Seroquel 200mg PO BID Hx of failed meds: Olanzapine (pt did not like this med) Risperidal (pt also did not like) Latuda (made him manic) [place] discussed possibly adding lithium and increasing seroquel dose. 10/18: Pt placed on 5 minute checks; presents a bit more organized than days prior. Continues tangential, flight of ideas. Pt stated, I like the Seroquel and Depakote dance. I was away from my pulls which was the problem. I'm trying to get back to [employer]. I was in sport mode. 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 medication compliant, labs to be drawn tomorrow morning. Pt reports taking lithium in the past but it made him psychotic . Continue current treatment plan. 10/19: pt strongly expresses desire to remain on present regimen for now. hyperverbal and disorganized. continue current mgmt. 10/20: presentation similar to yesterday. not interested in changing regimen. continue current mgmt. 10/21: taken off 5 minute safety checks and placed on 15's. pt is in behavioral control. However, continues hyperverbal and tangential. 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 I'm trying to grapple with the fact that I'm a closeted bisexual who needed to see the sun and is oppressed by race and fear of Covid. Why do you think I was eating the [employer] cards? Increase Seroquel to 300mg PO BID. Start: [place] 150mg PO bedtime 10/22: Continues manic with hyperverbal speech and tangential thought process. Remains in behavioral control. denies any side effects from medications. Increase [place] to 300mg PO bedtime 10/23: Pt continues somewhat hyperverbal, appears to be slowing down. Continues tangential. pt stated, If Dr. Eulalio Castro thinks I need to do something then by God I will do it . denies any side effects from medications. social with peers. attending groups. Increase Seroquel to 400mg PO BID 10/24: Continues similar to yesterday. Pt reports feeling good ; pt stated, I feel cognitively perfect. I am medicine compliant. I know what they do and the side effects . Pt presents with intense eye contact at times. decreased seroquel to 200mg PO BID. 10/25: Pt continues to present tangential and with flight of ideas. Pt stated, I know I'm not in the Matrix. I am Jacky Alves. I'm trying to relearn my eating habits. T/W and criminal justice social worker (Shannon) present for family meeting with patient's mother. Patient's mother reported she felt pt is still not at baseline and continues psychotic. She reported hx of positive effect with invega and zyprexa. Pt reports he does not want to take risperidal or latuda d/t negative symptoms while taking them in the past. Decrease Seroquel to 200mg PO bedtime Start: Invega 3mg PO bedtime Patient educated on: diagnosis and medication risk/benefits Guardian/Caregiver educated on: diagnosis and medication risk/benefits Informed Consent: understands Reason for continued inpatient stay Substantial Risk for: med/psych decompensation Time Spent With Patient Time: Total time managing care of this patient today _30___ minutes.
[2023-10-25 19:30] VITALS: BP 148/83; PULSE 116; RESP 18; TEMP 36.6; O2SAT 97
[2023-10-25] MEDS: Lithium Carbonate ER 300 MG TABLET.ER PO (22:58)
[2023-10-25] MEDS: Divalproex Sodium ER 500 MG TAB.ER.24H 1500 MG PO (22:59)
[2023-10-25] MEDS: Paliperidone ER 3 MG TAB.ER.24 PO (22:59)
[2023-10-26] MEDS: traZODone HCL 50 MG TABLET PO ×2 (01:59→23:36)
[2023-10-26 07:15] VITALS: BP 138/72; PULSE 102; RESP 14; TEMP 36.1; O2SAT 98
[2023-10-26] MEDS: amLODIPine Besylate 5 MG TABLET PO (08:20)
--- NOTE | 2023-10-26 09:33 | P.PNPSI_ITS ---
Subjective Subjective Date of Service: 10/26/23 Reason For Visit: crisis Subjective Notes: Conditional Voluntary Interim History: Doing better overall. More organized in speech and behavior. Slept about 5 hours. Eating OK. Just started on Invega. Medication Compliance: Yes Side effects from medications: No Review of Systems Acute medical concerns: No Mental Status Exam Mental Status Exam Patient Appearance: Well Grooomed Patient Orientation: Person, Place and Time Level of Consciousness: Alert Patient Behavior: Appropriate Mood Description: Calm Affect Description: Calm Patient Cognition Impaired: No Speech Pattern: Clear Memory Description: Intact Hallucinations: None Delusions: Not Present Thought Content: positive for Tangential Judgement: Fair Diagnostics Vital Signs (24Hr): Vital Signs - 24 hr 10/25/23 19:30 10/26/23 07:15 Temperature 98 F 97.0 F Pulse Rate 116 H 102 H Respiratory Rate 18 14 Blood Pressure 148/83 H 138/72 Pulse Oximetry 97 98 Oxygen Delivery Method Room Air Room Air BMI result Body Mass Index 29.3 Labs 10/25/23 08:24 10/25/23 08:24 Labs: Laboratory Results - last 48 hr 10/25/23 08:24 WBC 7.3 RBC 4.82 Hgb 14.2 Hct 42.8 MCV 88.8 MCH 29.5 MCHC 33.2 RDW 13.2 Plt Count 262 MPV 9.4 Immature Gran % (Auto) 0.1 Neut % (Auto) 42.5 L Lymph % (Auto) 38.8 [place] % (Auto) 7.8 Eos % (Auto) 10.3 H Baso % (Auto) 0.5 Lymph # (Auto) 2.8 [place] # (Auto) 0.6 Eos # (Auto) 0.8 H Baso # (Auto) 0.0 Abs Immat Gran (auto) 0.01 Absolute Neuts (auto) 3.1 Absolute Nucleated RBC 0.000 Nucleated RBC % (auto) 0.0 Sodium 139 Potassium 4.2 Chloride 104 Carbon Dioxide 27 Anion Gap 12 BUN 12 Creatinine 0.77 Estim Creat Clear Calc 181.0 Estimated GFR > 60 Random Glucose 90 Calcium 9.6 Total Bilirubin 0.5 Direct Bilirubin 0.1 AST 14 ALT 10 Alkaline Phosphatase 56 Ammonia 40 Total Creatine Kinase 75 Total Protein 6.9 Albumin 4.3 Valproic Acid 99.6 [place] 0.26 L Medications Medications Current Medications Acetaminophen (Acetaminophen 325 Mg Tablet) 650 mg PO Q6H PRN PRN Reason: Headache/Pain Mild Scale (1-3) Last Admin: 10/24/23 15:48 Dose: 650 mg Al Hydroxide/Mg Hydroxide (Magnesium Hydrox/Alum Hydrox 30 Ml Oral.Susp) 30 ml PO Q6H PRN PRN Reason: Heartburn/Nausea Amlodipine Besylate (Amlodipine Besylate 5 Mg Tablet) 5 mg PO DAILY ALPESH; Protocol Last Admin: 10/26/23 08:20 Dose: 5 mg Benztropine Mesylate (Benztropine Mesylate 1 Mg Tablet) 1 mg PO BEDTIME PRN PRN Reason: EPS Last Admin: 10/17/23 22:15 Dose: 1 mg Divalproex Sodium (Divalproex Sodium Er 500 Mg Tab.Er.24h) 1,500 mg PO BEDTIME ALPESH Last Admin: 10/25/23 22:59 Dose: 1,500 mg Hydroxyzine HCl (Hydroxyzine Hcl 25 Mg Tablet) 25 mg PO Q6H PRN PRN Reason: Anxiety Last Admin: 10/17/23 00:15 Dose: 25 mg [place] Carbonate ([place] Carbonate Er 300 Mg Tablet.Er) 300 mg PO BEDTIME ALPESH Last Admin: 10/25/23 22:58 Dose: 300 mg Magnesium Hydroxide (Milk Of Magnesia 30 Ml Oral.Susp) 30 ml PO DAILY PRN PRN Reason: Constipation Paliperidone (Paliperidone Er 3 Mg Tab.Er.24) 3 mg PO BEDTIME ALPESH Last Admin: 10/25/23 22:59 Dose: 3 mg Quetiapine Fumarate (Quetiapine Fumarate 200 Mg Tablet) 200 mg PO BEDTIME ALPESH Last Admin: 10/25/23 22:58 Dose: 200 mg Trazodone HCl (Trazodone Hcl 50 Mg Tablet) 50 mg PO BEDTIME MRX1 PRN PRN Reason: Insomnia Last Admin: 10/26/23 01:59 Dose: 50 mg Allergies Allergies Allergy/AdvReac Type Severity Reaction Status Date / Time sesame oil Allergy Anaphylaxis Verified 10/10/23 19:24 sesame seed Allergy Anaphylaxis Verified 10/10/23 19:24 tree nut Allergy Anaphylaxis Verified 10/10/23 19:24 Assessment & Plan Assessment & Plan (1) Bipolar 1 disorder, manic, moderate: Status: Acute Code(s): F31.12 - Bipolar disorder, current episode manic without psychotic features, moderate Assessment and Plan: Continue current meds as he is improving Plan Patient is a 23 year old male with hx of Bipolar d/o who presented to [facility] via EMS from [facility] after visiting a friend and presenting manic and displaying sexualized behaviors in the closet. Hospital course 10/12: Continue current plan. 10/13: Continue current management and treatment plan. 10/14: On 1:1 safety checks. Disorganized. Wearing multiple layers of clothing, some clothing on backwards. Staffed notified T/W, pt walked into shower room, did not disrobe, however urinated and walked out of shower room without bathing self despite encouragement from staff. medication compliant. Pt retracted 3 day. Valporic acid 107.5 today; decreased dose from 750mg PO BID to Depakote 500mg PO BID. DC Haldol and Ativan Start: Seroquel 50mg PO BID Cogentin 1mg PO bedtime 10/15: Patient pleasant; still disorganized in speech behavior but staff agree he is doing better. Still struggling with sleep though did sleep a little better last night; attended some groups today. On approach patient says he is great and thinks data analyst report writer for meeting with him. He then explains why he is great saying I like my room... I like my bed... I like these ellis... I like that[points to vent]... Patient talked a little bit about the incident leading up to this admission and said that he got dressed in the proper fashion before [he] went to meet a girl... Patient says that he has been on Depakote in the past; he agrees he stopped taking it but is unable to give any kind of timeline. Discussed medication management and patient agrees to change his outpatient dose to make it long- acting and put it at bedtime to help with insomnia; he also asks for Seroquel to be put at bedtime since he is having trouble sleeping. 10/16: Continues on 1:1 safety checks d/t disorganization. Pt unable to have logical conversation, tangential, flight of ideas. When asked if he recalled what brought him into the hospital, pt stated, yeah. I had a panic attack and a bisexual experience. Panic at the disco. 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 I'm not trying to steal your . Pt is medication compliant. 10/17: Continues on 1:1 safety checks d/t disorganization. Pt unable to have logical conversation, tangential, flight of ideas. Pt reports feeling great today; pt stated, I'm trying to work on my posture. I'm not in the Matrix. I see the world in color. I'm the question . Spoke to patient's outpatient psychiatrist, Dr. Jarett Castro, who reported hx of taking: Depakote 1500mg PO bedtime Seroquel 200mg PO BID Hx of failed meds: Olanzapine (pt did not like this med) Risperidal (pt also did not like) Latuda (made him manic) Invega discussed possibly adding lithium and increasing seroquel dose. 10/18: Pt placed on 5 minute checks; presents a bit more organized than days prior. Continues tangential, flight of ideas. Pt stated, I like the Seroquel and Depakote dance. I was away from my pulls which was the problem. I'm trying to get back to [employer]. I was in sport mode. 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 Pt reports taking lithium in the past but it made him psychotic . Continue current treatment plan. 3: pt strongly expresses desire to remain on present regimen for now. hyperverbal and disorganized. continue current mgmt. 10/20: presentation similar to yesterday. not interested in changing regimen. continue current mgmt. 10/21: taken off 5 minute safety checks and placed on 15's. pt is in behavioral control. However, continues hyperverbal and tangential. 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 I'm trying to grapple with the fact that I'm a closeted bisexual who needed to see the sun and is oppressed by race and fear of Covid. Why do you think I was eating the [place] cards? Increase Seroquel to 300mg PO BID. Start: [place] 150mg PO bedtime 10/22: Continues manic with hyperverbal speech and tangential thought process. Remains in behavioral control. denies any side effects from medications. Increase [place] to 300mg PO bedtime 10/23: Pt continues somewhat hyperverbal, appears to be slowing down. Continues tangential. pt stated, If Dr. Eulalio Castro thinks I need to do something then by God I will do it . denies any side effects from medications. social with peers. attending groups. Increase Seroquel to 400mg PO BID 10/24: Continues similar to yesterday. Pt reports feeling good ; pt stated, I feel cognitively perfect. I am medicine compliant. I know what they do and the side effects . Pt presents with intense eye contact at times. decreased seroquel to 200mg PO BID. 10/25: Pt continues to present tangential and with flight of ideas. Pt stated, I know I'm not in the Matrix. I am Jacky Alves. I'm trying to relearn my eating habits. T/W and certified social workers in health care (Shannon) present for family meeting with patient's mother. Patient's mother reported she felt pt is still not at baseline and continues psychotic. She reported hx of positive effect with invega and zyprexa. Pt reports he does not want to take risperidal or latuda d/t negative symptoms while taking them in the past. Decrease Seroquel to 200mg PO bedtime Start: Invega 3mg PO bedtime Reason for continued inpatient stay Substantial Risk for: rapid decompensation Time Spent With Patient Time: Total time managing care of this patient today ____ minutes.
[2023-10-26] MEDS: hydrOXYzine HCL 25 MG TABLET PO (17:58)
[2023-10-26 19:30] VITALS: BP 157/76; PULSE 93; RESP 16; TEMP 36.6; O2SAT 95
[2023-10-26] MEDS: Paliperidone ER 3 MG TAB.ER.24 PO (22:16)
[2023-10-26] MEDS: Divalproex Sodium ER 500 MG TAB.ER.24H 1500 MG PO (22:16)
[2023-10-26] MEDS: Lithium Carbonate ER 300 MG TABLET.ER PO (22:17)
[2023-10-26] MEDS: QUEtiapine Fumarate 200 MG TABLET PO (22:17)
[2023-10-27 07:40] VITALS: BP 113/58; PULSE 62; RESP 18; TEMP 35.6; O2SAT 98
[2023-10-27] MEDS: amLODIPine Besylate 5 MG TABLET PO (08:19)
--- NOTE | 2023-10-27 08:27 | HO.PSYCHPN ---
Subjective Subjective Date of Service: 10/27/23 Reason For Visit: crisis Subjective Notes: Conditional Voluntary Interim History: Patient was seen and discussed in rounds today. Records and plans were reviewed. He has been stable and is doing better. No SI. He is compliant with his medications and sleeping 7 hours or so. Some grandiose behaviors. Not quite grounded yet. No changes were made today. No complaints or side effects reported. Review of Systems Review of Systems Yes all other systems are reviewed and are negative Mental Status Exam Mental Status Exam Patient Appearance: Well Grooomed Patient Orientation: Person, Place and Time Level of Consciousness: Alert Patient Behavior: Appropriate Mood Description: Calm Affect Description: Calm Patient Cognition Impaired: No Speech Pattern: Clear Memory Description: Intact Hallucinations: None Delusions: Not Present Thought Content: positive for Tangential Judgement: Fair Diagnostics Vital Signs (24Hr): Vital Signs - 24 hr 10/26/23 19:30 Temperature 97.8 F Pulse Rate 93 Respiratory Rate 16 Blood Pressure 157/76 H Pulse Oximetry 95 Oxygen Delivery Method Room Air BMI result Body Mass Index 29.3 Labs 10/25/23 08:24 10/25/23 08:24 Labs: Laboratory Results - last 48 hr 10/25/23 08:24 WBC 7.3 RBC 4.82 Hgb 14.2 Hct 42.8 MCV 88.8 MCH 29.5 MCHC 33.2 RDW 13.2 Plt Count 262 MPV 9.4 Immature Gran % (Auto) 0.1 Neut % (Auto) 42.5 L Lymph % (Auto) 38.8 [place] % (Auto) 7.8 Eos % (Auto) 10.3 H Baso % (Auto) 0.5 Lymph # (Auto) 2.8 [place] # (Auto) 0.6 Eos # (Auto) 0.8 H Baso # (Auto) 0.0 Abs Immat Gran (auto) 0.01 Absolute Neuts (auto) 3.1 Absolute Nucleated RBC 0.000 Nucleated RBC % (auto) 0.0 Sodium 139 Potassium 4.2 Chloride 104 Carbon Dioxide 27 Anion Gap 12 BUN 12 Creatinine 0.77 Estim Creat Clear Calc 181.0 Estimated GFR > 60 Random Glucose 90 Calcium 9.6 Total Bilirubin 0.5 Direct Bilirubin 0.1 AST 14 ALT 10 Alkaline Phosphatase 56 Ammonia 40 Total Creatine Kinase 75 Total Protein 6.9 Albumin 4.3 Valproic Acid 99.6 [place] 0.26 L Medications Medications Current Medications Acetaminophen (Acetaminophen 325 Mg Tablet) 650 mg PO Q6H PRN PRN Reason: Headache/Pain Mild Scale (1-3) Last Admin: 10/24/23 15:48 Dose: 650 mg Al Hydroxide/Mg Hydroxide (Magnesium Hydrox/Alum Hydrox 30 Ml Oral.Susp) 30 ml PO Q6H PRN PRN Reason: Heartburn/Nausea Amlodipine Besylate (Amlodipine Besylate 5 Mg Tablet) 5 mg PO DAILY ALPESH; Protocol Last Admin: 10/27/23 08:19 Dose: 5 mg Benztropine Mesylate (Benztropine Mesylate 1 Mg Tablet) 1 mg PO BEDTIME PRN PRN Reason: EPS Last Admin: 10/17/23 22:15 Dose: 1 mg Divalproex Sodium (Divalproex Sodium Er 500 Mg Tab.Er.24h) 1,500 mg PO BEDTIME ALPESH Last Admin: 10/26/23 22:16 Dose: 1,500 mg Hydroxyzine HCl (Hydroxyzine Hcl 25 Mg Tablet) 25 mg PO Q6H PRN PRN Reason: Anxiety Last Admin: 10/26/23 17:58 Dose: 25 mg [place] Carbonate ([place] Carbonate Er 300 Mg Tablet.Er) 300 mg PO BEDTIME ALPESH Last Admin: 10/26/23 22:17 Dose: 300 mg Magnesium Hydroxide (Milk Of Magnesia 30 Ml Oral.Susp) 30 ml PO DAILY PRN PRN Reason: Constipation Paliperidone (Paliperidone Er 3 Mg Tab.Er.24) 3 mg PO BEDTIME ALPESH Last Admin: 10/26/23 22:16 Dose: 3 mg Quetiapine Fumarate (Quetiapine Fumarate 200 Mg Tablet) 200 mg PO BEDTIME ALPESH Last Admin: 10/26/23 22:17 Dose: 200 mg Trazodone HCl (Trazodone Hcl 50 Mg Tablet) 50 mg PO BEDTIME MRX1 PRN PRN Reason: Insomnia Last Admin: 10/26/23 23:36 Dose: 50 mg Allergies Allergies Allergy/AdvReac Type Severity Reaction Status Date / Time sesame oil Allergy Anaphylaxis Verified 10/10/23 19:24 sesame seed Allergy Anaphylaxis Verified 10/10/23 19:24 tree nut Allergy Anaphylaxis Verified 10/10/23 19:24 Assessment & Plan Assessment & Plan (1) Bipolar 1 disorder, manic, moderate: Status: Acute Code(s): F31.12 - Bipolar disorder, current episode manic without psychotic features, moderate Assessment and Plan: Continue current meds as he is improving Plan Patient is a 23 year old male with hx of Bipolar d/o who presented to [facility] [place] from [facility] after visiting a friend and presenting manic and displaying sexualized behaviors in the closet. Hospital course 10/12: Continue current plan. 10/13: Continue current management and treatment plan. 10/14: On 1:1 safety checks. Disorganized. Wearing multiple layers of clothing, some clothing on backwards. Staffed notified T/W, pt walked into shower room, did not disrobe, however urinated and walked out of shower room without bathing self despite encouragement from staff. medication compliant. Pt retracted 3 day. Valporic acid 107.5 today; decreased dose from 750mg PO BID to Depakote 500mg PO BID. DC Haldol and Ativan Start: Seroquel 50mg PO BID Cogentin 1mg PO bedtime 10/15: Patient pleasant; still disorganized in speech behavior but staff agree he is doing better. Still struggling with sleep though did sleep a little better last night; attended some groups today. On approach patient says he is great and thinks mortgage underwriter for meeting with him. He then explains why he is great saying I like my room... I like my bed... I like these ellis... I like that[points to vent]... Patient talked a little bit about the incident leading up to this admission and said that he got dressed in the proper fashion before [he] went to meet a girl... Patient says that he has been on Depakote in the past; he agrees he stopped taking it but is unable to give any kind of timeline. Discussed medication management and patient agrees to change his outpatient dose to make it long-acting and put it at bedtime to help with insomnia; he also asks for Seroquel to be put at bedtime since he is having trouble sleeping. 10/16: Continues on 1:1 safety checks d/t disorganization. Pt unable to have logical conversation, tangential, flight of ideas. When asked if he recalled what brought him into the hospital, pt stated, yeah. I had a panic attack and a bisexual experience. Panic at the disco. 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 I'm not trying to steal your . Pt is medication compliant. 10/17: Continues on 1:1 safety checks d/t disorganization. Pt unable to have logical conversation, tangential, flight of ideas. Pt reports feeling great today; pt stated, I'm trying to work on my posture. I'm not in the Matrix. I see the world in color. I'm the question . Spoke to patient's outpatient psychiatrist, Dr. Jarett Castro, who reported hx of taking: Depakote 1500mg PO bedtime Seroquel 200mg PO BID Hx of failed meds: Olanzapine (pt did not like this med) Risperidal (pt also did not like) Latuda (made him manic) Invega discussed possibly adding lithium and increasing seroquel dose. 10/18: Pt placed on 5 minute checks; presents a bit more organized than days prior. Continues tangential, flight of ideas. Pt stated, I like the Seroquel and Depakote dance. I was away from my pulls which was the problem. I'm trying to get back to [employer]. I was in sport mode. 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 medication compliant, labs to be drawn tomorrow morning. Pt reports taking lithium in the past but it made him psychotic . Continue current treatment plan. 3: pt strongly expresses desire to remain on present regimen for now. hyperverbal and disorganized. continue current mgmt. 10/20: presentation similar to yesterday. not interested in changing regimen. continue current mgmt. 10/21: taken off 5 minute safety checks and placed on 15's. pt is in behavioral control. However, continues hyperverbal and tangential. 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 I'm trying to grapple with the fact that I'm a closeted bisexual who needed to see the sun and is oppressed by race and fear of Covid. Why do you think I was eating the [place] cards? Increase Seroquel to 300mg PO BID. Start: [place] 150mg PO bedtime 10/22: Continues manic with hyperverbal speech and tangential thought process. Remains in behavioral control. denies any side effects from medications. Increase [place] to 300mg PO bedtime 10/23: Pt continues somewhat hyperverbal, appears to be slowing down. Continues tangential. pt stated, If Dr. Eulalio Castro thinks I need to do something then by God I will do it . denies any side effects from medications. social with peers. attending groups. Increase Seroquel to 400mg PO BID 10/24: Continues similar to yesterday. Pt reports feeling good ; pt stated, I feel cognitively perfect. I am medicine compliant. I know what they do and the side effects . Pt presents with intense eye contact at times. decreased seroquel to 200mg PO BID. 10/25: Pt continues to present tangential and with flight of ideas. Pt stated, I know I'm not in the Matrix. I am Jacky Alves. I'm trying to relearn my eating habits. T/W and social work administrator (Shannon) present for family meeting with patient's mother. Patient's mother reported she felt pt is still not at baseline and continues psychotic. She reported hx of positive effect with invega and zyprexa. Pt reports he does not want to take risperidal or latuda d/t negative symptoms while taking them in the past. Decrease Seroquel to 200mg PO bedtime Start: Invega 3mg PO bedtime Reason for continued inpatient stay Substantial Risk for: med/psych decompensation Time Spent With Patient Time: Total time managing care of this patient today ____ minutes.
[2023-10-27 18:00] VITALS: BP 158/89; PULSE 118; RESP 18; TEMP 37.3; O2SAT 97
[2023-10-27] MEDS: QUEtiapine Fumarate 200 MG TABLET PO (21:00)
[2023-10-27] MEDS: Paliperidone ER 3 MG TAB.ER.24 PO (21:00)
[2023-10-27] MEDS: Divalproex Sodium ER 500 MG TAB.ER.24H 1500 MG PO (21:01)
[2023-10-27] MEDS: Lithium Carbonate ER 300 MG TABLET.ER PO (21:50)
[2023-10-28] MEDS: hydrOXYzine HCL 25 MG TABLET PO ×3 (00:27→20:18)
--- NOTE | 2023-10-28 03:26 | PC.NURSE ---
Jacky was noted to be social with several male peers throughout the evening. However, at approximately 2100 the patient was c/o having a panic attack, I've had these before. I just need someone to sit calmly with me. If you sit quietly with me then you energy will help me calm down. patient continues to be moderately grandiose with flight of ideas. Jacky was given HS medications with moderate effect. Patient received Atarax at approximately 0015 with positive effect. Patient is sleeping in sensory room as the peer he was most suspicious of is his roommate. monitor for safety, continue Plan of Care
[2023-10-28 07:10] VITALS: BP 169/95; PULSE 80; RESP 18; TEMP 36.2; O2SAT 99
[2023-10-28] MEDS: amLODIPine Besylate 5 MG TABLET PO (08:25)
--- NOTE | 2023-10-28 09:16 | P.PNPSI_ITS ---
Subjective Subjective Date of Service: 10/28/23 Reason For Visit: crisis Subjective Notes: Conditional Voluntary Interim History: Reviewed with Dr. Jimenes. Pt reports feeling good today; continues tangential, flight of ideas. rambling. Making bizarre statements at times. Pt stated, I see the world in colors. This place should be more colorful. They ignore it. Increase Invega to 6mg PO bedtime Increase [place] to 600mg PO bedtime. Change: Seroquel to 50mg PO BID PRN Medication Compliance: Yes Side effects from medications: No Attending Groups: Yes Review of Systems Constitutional: Reports as per HPI Eyes: Reports as per HPI Reports as per HPI Cardiovascular: Reports as per HPI Respiratory: Reports as per HPI Gastrointestinal: Reports as per HPI Genitourinary: Reports as per HPI Musculoskeletal: Reports as per HPI Skin/Breast: Reports as per HPI Reports as per HPI Psychiatric: Reports as per HPI Endocrine: Reports as per HPI Hematologic/Lymphatic: Reports as per HPI Allergic/Immunologic: Reports as per HPI Mental Status Exam Mental Status Exam Narrative: Pt is alert and oriented; behavior is cooperative and calm; dressed in casual attire; mood is described as good ; eye contact intense at times; hyperverbal, not pressured or rapid; some organized but continues tangential, flight of ideas. denies SI/HI/VH/AH. Diagnostics Vital Signs (24Hr): Vital Signs - 24 hr 10/27/23 18:00 10/28/23 07:10 Temperature 99.1 F 97.1 F Pulse Rate 118 H 80 Respiratory Rate 18 18 Blood Pressure 158/89 H 169/95 H Pulse Oximetry 97 99 Oxygen Delivery Method Room Air Room Air BMI result Body Mass Index 29.3 Labs 10/25/23 08:24 10/25/23 08:24 Medications Medications Current Medications Acetaminophen (Acetaminophen 325 Mg Tablet) 650 mg PO Q6H PRN PRN Reason: Headache/Pain Mild Scale (1-3) Last Admin: 10/24/23 15:48 Dose: 650 mg Al Hydroxide/Mg Hydroxide (Magnesium Hydrox/Alum Hydrox 30 Ml Oral.Susp) 30 ml PO Q6H PRN PRN Reason: Heartburn/Nausea Amlodipine Besylate (Amlodipine Besylate 5 Mg Tablet) 5 mg PO DAILY ALPESH; Protocol Last Admin: 10/28/23 08:25 Dose: 5 mg Benztropine Mesylate (Benztropine Mesylate 1 Mg Tablet) 1 mg PO BEDTIME PRN PRN Reason: EPS Last Admin: 10/17/23 22:15 Dose: 1 mg Divalproex Sodium (Divalproex Sodium Er 500 Mg Tab.Er.24h) 1,500 mg PO BEDTIME ALPESH Last Admin: 10/27/23 21:01 Dose: 1,500 mg Hydroxyzine HCl (Hydroxyzine Hcl 25 Mg Tablet) 25 mg PO Q6H PRN PRN Reason: Anxiety Last Admin: 10/28/23 08:30 Dose: 25 mg [place] Carbonate ([place] Carbonate Er 300 Mg Tablet.Er) 300 mg PO BEDTIME ALPESH Last Admin: 10/27/23 21:50 Dose: 300 mg Magnesium Hydroxide (Milk Of Magnesia 30 Ml Oral.Susp) 30 ml PO DAILY PRN PRN Reason: Constipation Paliperidone (Paliperidone Er 3 Mg Tab.Er.24) 3 mg PO BEDTIME ALPESH Last Admin: 10/27/23 21:00 Dose: 3 mg Quetiapine Fumarate (Quetiapine Fumarate 200 Mg Tablet) 200 mg PO BEDTIME ALPESH Last Admin: 10/27/23 21:00 Dose: 200 mg Trazodone HCl (Trazodone Hcl 50 Mg Tablet) 50 mg PO BEDTIME MRX1 PRN PRN Reason: Insomnia Last Admin: 10/26/23 23:36 Dose: 50 mg Allergies Allergies Allergy/AdvReac Type Severity Reaction Status Date / Time sesame oil Allergy Anaphylaxis Verified 10/10/23 19:24 sesame seed Allergy Anaphylaxis Verified 10/10/23 19:24 tree nut Allergy Anaphylaxis Verified 10/10/23 19:24 Assessment & Plan Assessment & Plan (1) Bipolar 1 disorder, manic, moderate: Status: Acute Code(s): F31.12 - Bipolar disorder, current episode manic without psychotic features, moderate Plan Patient is a 23 year old male with hx of Bipolar d/o who presented to [facility] via EMS from [facility] after visiting a friend and presenting manic and displaying sexualized behaviors in the closet. Hospital course 10/12: Continue current plan. 10/13: Continue current management and treatment plan. 10/14: On 1:1 safety checks. Disorganized. Wearing multiple layers of clothing, some clothing on backwards. Staffed notified T/W, pt walked into shower room, did not disrobe, however urinated and walked out of shower room without bathing self despite encouragement from staff. medication compliant. Pt retracted 3 day. Valporic acid 107.5 today; decreased dose from 750mg PO BID to Depakote 500mg PO BID. DC Haldol and Ativan Start: Seroquel 50mg PO BID Cogentin 1mg PO bedtime 10/15: Patient pleasant; still disorganized in speech behavior but staff agree he is doing better. Still struggling with sleep though did sleep a little better last night; attended some groups today. On approach patient says he is great and thinks technical report writer for meeting with him. He then explains why he is great saying I like my room... I like my bed... I like these ellis... I like that[points to vent]... Patient talked a little bit about the incident leading up to this admission and said that he got dressed in the proper fashion before [he] went to meet a girl... Patient says that he has been on Depakote in the past; he agrees he stopped taking it but is unable to give any kind of timeline. Discussed medication management and patient agrees to change his outpatient dose to make it long- acting and put it at bedtime to help with insomnia; he also asks for Seroquel to be put at bedtime since he is having trouble sleeping. 10/16: Continues on 1:1 safety checks d/t disorganization. Pt unable to have logical conversation, tangential, flight of ideas. When asked if he recalled what brought him into the hospital, pt stated, yeah. I had a panic attack and a bisexual experience. Panic at the disco. 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 I'm not trying to steal your . Pt is medication compliant. 10/17: Continues on 1:1 safety checks d/t disorganization. Pt unable to have logical conversation, tangential, flight of ideas. Pt reports feeling great today; pt stated, I'm trying to work on my posture. I'm not in the Matrix. I see the world in color. I'm the question . Spoke to patient's outpatient psychiatrist, Dr. Jarett Castro, who reported hx of taking: Depakote 1500mg PO bedtime Seroquel 200mg PO BID Hx of failed meds: Olanzapine (pt did not like this med) Risperidal (pt also did not like) Latuda (made him manic) Invega discussed possibly adding lithium and increasing seroquel dose. 10/18: Pt placed on 5 minute checks; presents a bit more organized than days prior. Continues tangential, flight of ideas. Pt stated, I like the Seroquel and Depakote dance. I was away from my pulls which was the problem. I'm trying to get back to [employer]. I was in sport mode. 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 Pt reports taking lithium in the past but it made him psychotic . Continue current treatment plan. 10/19: pt strongly expresses desire to remain on present regimen for now. hyperverbal and disorganized. continue current mgmt. 10/20: presentation similar to yesterday. not interested in changing regimen. continue current mgmt. 10/21: taken off 5 minute safety checks and placed on 15's. pt is in behavioral control. However, continues hyperverbal and tangential. 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 I'm trying to grapple with the fact that I'm a closeted bisexual who needed to see the sun and is oppressed by race and fear of Covid. Why do you think I was eating the [employer] cards? Increase Seroquel to 300mg PO BID. Start: [place] 150mg PO bedtime 10/22: Continues manic with hyperverbal speech and tangential thought process. Remains in behavioral control. denies any side effects from medications. Increase [place] to 300mg PO bedtime 10/23: Pt continues somewhat hyperverbal, appears to be slowing down. Continues tangential. pt stated, If Dr. Eulalio Castro thinks I need to do something then by God I will do it . denies any side effects from medications. social with peers. attending groups. Increase Seroquel to 400mg PO BID 10/24: Continues similar to yesterday. Pt reports feeling good ; pt stated, I feel cognitively perfect. I am medicine compliant. I know what they do and the side effects . Pt presents with intense eye contact at times. decreased seroquel to 200mg PO BID. 10/25: Pt continues to present tangential and with flight of ideas. Pt stated, I know I'm not in the Matrix. I am Jacky Alves. I'm trying to relearn my eating habits. T/W and sr. social media & mobile manager (Shannon) present for family meeting with patient's mother. Patient's mother reported she felt pt is still not at baseline and continues psychotic. She reported hx of positive effect with invega and zyprexa. Pt reports he does not want to take risperidal or latuda d/t negative symptoms while taking them in the past. Decrease Seroquel to 200mg PO bedtime Start: Invega 3mg PO bedtime 10/28: Pt reports feeling good today; continues tangential, flight of ideas. rambling. Making bizarre statements at times. Pt stated, I see the world in colors. This place should be more colorful. They ignore it. Increase Invega to 6mg PO bedtime Increase [place] to 600mg PO bedtime. Change: Seroquel to 50mg PO BID PRN Patient educated on: diagnosis and medication risk/benefits Informed Consent: understands Reason for continued inpatient stay Substantial Risk for: med/psych decompensation Time Spent With Patient Time: Total time managing care of this patient today _20___ minutes.
[2023-10-28 16:22] VITALS: BP 120/72
[2023-10-28 18:00] VITALS: BP 152/62; PULSE 88; RESP 18; TEMP 36.4; O2SAT 96
[2023-10-28] MEDS: Paliperidone ER 6 MG TAB.ER.24 PO (21:32)
[2023-10-28] MEDS: Lithium Carbonate ER 300 MG TABLET.ER 600 MG PO (21:32)
[2023-10-28] MEDS: Divalproex Sodium ER 500 MG TAB.ER.24H 1500 MG PO (21:32)
[2023-10-28] MEDS: QUEtiapine Fumarate 50 MG TABLET PO (21:37)
[2023-10-28] MEDS: traZODone HCL 50 MG TABLET PO (21:37)
--- NOTE | 2023-10-29 08:39 | P.PNPSI_ITS ---
Subjective Subjective Date of Service: 10/29/23 Reason For Visit: crisis Subjective Notes: Conditional Voluntary Interim History: Reviewed with Dr. Jimenes. Pt reports feeling good today; continues tangential, flight of ideas. rambling. 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 And my family is the Calvin Pettigrew; a dysfunctional Calvin Pettigrew . Medication Compliance: Yes Side effects from medications: No Attending Groups: Yes Review of Systems Constitutional: Reports as per HPI Eyes: Reports as per HPI Reports as per HPI Cardiovascular: Reports as per HPI Respiratory: Reports as per HPI Gastrointestinal: Reports as per HPI Genitourinary: Reports as per HPI Musculoskeletal: Reports as per HPI Skin/Breast: Reports as per HPI Reports as per HPI Psychiatric: Reports as per HPI Endocrine: Reports as per HPI Hematologic/Lymphatic: Reports as per HPI Allergic/Immunologic: Reports as per HPI Mental Status Exam Mental Status Exam Narrative: Pt is alert and oriented; behavior is cooperative and calm; dressed in casual attire; mood is described as good ; eye contact intense at times; hyperverbal, not pressured or rapid; some organized but continues tangential, flight of ideas. denies SI/HI/VH/AH. Diagnostics Vital Signs (24Hr): Vital Signs - 24 hr 10/28/23 16:22 10/28/23 18:00 Temperature 97.5 F Pulse Rate 88 Respiratory Rate 18 Blood Pressure 120/72 152/62 H Pulse Oximetry 96 Oxygen Delivery Method Room Air BMI result Body Mass Index 29.3 Labs 10/25/23 08:24 10/25/23 08:24 Medications Medications Current Medications Acetaminophen (Acetaminophen 325 Mg Tablet) 650 mg PO Q6H PRN PRN Reason: Headache/Pain Mild Scale (1-3) Last Admin: 10/24/23 15:48 Dose: 650 mg Al Hydroxide/Mg Hydroxide (Magnesium Hydrox/Alum Hydrox 30 Ml Oral.Susp) 30 ml PO Q6H PRN PRN Reason: Heartburn/Nausea Amlodipine Besylate (Amlodipine Besylate 5 Mg Tablet) 5 mg PO DAILY ALPESH; Protocol Last Admin: 10/28/23 08:25 Dose: 5 mg Benztropine Mesylate (Benztropine Mesylate 1 Mg Tablet) 1 mg PO BEDTIME PRN PRN Reason: EPS Last Admin: 10/17/23 22:15 Dose: 1 mg Divalproex Sodium (Divalproex Sodium Er 500 Mg Tab.Er.24h) 1,500 mg PO BEDTIME ALPESH Last Admin: 10/28/23 21:32 Dose: 1,500 mg Hydroxyzine HCl (Hydroxyzine Hcl 25 Mg Tablet) 25 mg PO Q6H PRN PRN Reason: Anxiety Last Admin: 10/28/23 20:18 Dose: 25 mg [place] Carbonate ([place] Carbonate Er 300 Mg Tablet.Er) 600 mg PO BEDTIME ALPESH Last Admin: 10/28/23 21:32 Dose: 600 mg Magnesium Hydroxide (Milk Of Magnesia 30 Ml Oral.Susp) 30 ml PO DAILY PRN PRN Reason: Constipation Paliperidone (Paliperidone Er 6 Mg Tab.Er.24) 6 mg PO BEDTIME ALPESH Last Admin: 10/28/23 21:32 Dose: 6 mg Quetiapine Fumarate (Quetiapine Fumarate 50 Mg Tablet) 50 mg PO BID PRN PRN Reason: Psychosis Last Admin: 10/28/23 21:37 Dose: 50 mg Trazodone HCl (Trazodone Hcl 50 Mg Tablet) 50 mg PO BEDTIME MRX1 PRN PRN Reason: Insomnia Last Admin: 10/28/23 21:37 Dose: 50 mg Allergies Allergies Allergy/AdvReac Type Severity Reaction Status Date / Time sesame oil Allergy Anaphylaxis Verified 10/10/23 19:24 sesame seed Allergy Anaphylaxis Verified 10/10/23 19:24 tree nut Allergy Anaphylaxis Verified 10/10/23 19:24 Assessment & Plan Assessment & Plan (1) Bipolar 1 disorder, manic, moderate: Status: Acute Code(s): F31.12 - Bipolar disorder, current episode manic without psychotic features, moderate Plan Patient is a 23 year old male with hx of Bipolar d/o who presented to [facility] via EMS from [facility] after visiting a friend and presenting manic and displaying sexualized behaviors in the closet. Hospital course 10/12: Continue current plan. 10/13: Continue current management and treatment plan. 10/14: On 1:1 safety checks. Disorganized. Wearing multiple layers of clothing, some clothing on backwards. Staffed notified T/W, pt walked into shower room, did not disrobe, however urinated and walked out of shower room without bathing self despite encouragement from staff. medication compliant. Pt retracted 3 day. Valporic acid 107.5 today; decreased dose from 750mg PO BID to Depakote 500mg PO BID. DC Haldol and Ativan Start: Seroquel 50mg PO BID Cogentin 1mg PO bedtime 10/15: Patient pleasant; still disorganized in speech behavior but staff agree he is doing better. Still struggling with sleep though did sleep a little better last night; attended some groups today. On approach patient says he is great and thinks clinical writer for meeting with him. He then explains why he is great saying I like my room... I like my bed... I like these ellis... I like that[points to vent]... Patient talked a little bit about the incident leading up to this admission and said that he got dressed in the proper fashion before [he] went to meet a girl... Patient says that he has been on Depakote in the past; he agrees he stopped taking it but is unable to give any kind of timeline. Discussed medication management and patient agrees to change his outpatient dose to make it long- acting and put it at bedtime to help with insomnia; he also asks for Seroquel to be put at bedtime since he is having trouble sleeping. 10/16: Continues on 1:1 safety checks d/t disorganization. Pt unable to have logical conversation, tangential, flight of ideas. When asked if he recalled what brought him into the hospital, pt stated, yeah. I had a panic attack and a bisexual experience. Panic at the disco. 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 I'm not trying to steal your . Pt is medication compliant. 10/17: Continues on 1:1 safety checks d/t disorganization. Pt unable to have logical conversation, tangential, flight of ideas. Pt reports feeling great today; pt stated, I'm trying to work on my posture. I'm not in the Matrix. I see the world in color. I'm the question . Spoke to patient's outpatient psychiatrist, Dr. Jarett Castro, who reported hx of taking: Depakote 1500mg PO bedtime Seroquel 200mg PO BID Hx of failed meds: Olanzapine (pt did not like this med) Risperidal (pt also did not like) Latuda (made him manic) Hina discussed possibly adding lithium and increasing seroquel dose. 10/18: Pt placed on 5 minute checks; presents a bit more organized than days prior. Continues tangential, flight of ideas. Pt stated, I like the Seroquel and Depakote dance. I was away from my pulls which was the problem. I'm trying to get back to [employer]. I was in sport mode. 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 medication compliant, labs to be drawn tomorrow morning. Pt reports taking lithium in the past but it made him psychotic . Continue current treatment plan. 10/19: pt strongly expresses desire to remain on present regimen for now. hyperverbal and disorganized. continue current mgmt. 10/20: presentation similar to yesterday. not interested in changing regimen. continue current mgmt. 10/21: taken off 5 minute safety checks and placed on 15's. pt is in behavioral control. However, continues hyperverbal and tangential. 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 I'm trying to grapple with the fact that I'm a closeted bisexual who needed to see the sun and is oppressed by race and fear of Covid. Why do you think I was eating the [employer] cards? Increase Seroquel to 300mg PO BID. Start: [place] 150mg PO bedtime 10/22: Continues manic with hyperverbal speech and tangential thought process. Remains in behavioral control. denies any side effects from medications. Increase [place] to 300mg PO bedtime 10/23: Pt continues somewhat hyperverbal, appears to be slowing down. Continues tangential. pt stated, If Dr. Eulalio Castro thinks I need to do something then by God I will do it . denies any side effects from medications. social with peers. attending groups. Increase Seroquel to 400mg PO BID 10/24: Continues similar to yesterday. Pt reports feeling good ; pt stated, I feel cognitively perfect. I am medicine compliant. I know what they do and the side effects . Pt presents with intense eye contact at times. decreased seroquel to 200mg PO BID. 10/25: Pt continues to present tangential and with flight of ideas. Pt stated, I know I'm not in the Matrix. I am Jacky Alves. I'm trying to relearn my eating habits. T/W and sexual assault social worker (Shannon) present for family meeting with patient's mother. Patient's mother reported she felt pt is still not at baseline and continues psychotic. She reported hx of positive effect with invega and zyprexa. Pt reports he does not want to take risperidal or latuda d/t negative symptoms while taking them in the past. Decrease Seroquel to 200mg PO bedtime Start: Invega 3mg PO bedtime 10/28: Pt reports feeling good today; continues tangential, flight of ideas. rambling. Making bizarre statements at times. Pt stated, I see the world in colors. This place should be more colorful. They ignore it. Increase Invega to 6mg PO bedtime Increase [place] to 600mg PO bedtime. Change: Seroquel to 50mg PO BID PRN 10/29: Pt reports feeling good today; continues tangential, flight of ideas. rambling. Pt stated, I think since 2019 I've been in one big psychosis with all these psych wards and all I'm doing is wearing my outfit. And my family is the Calvin Pettigrew; a dysfunctional Calvin Pettigrew . Continue current tx plan. Reason for continued inpatient stay Substantial Risk for: med/psych decompensation Time Spent With Patient Time: Total time managing care of this patient today ____ minutes.
[2023-10-29 08:41] VITALS: BP 138/52; PULSE 63; RESP 16; TEMP 36.3; O2SAT 99
[2023-10-29] MEDS: amLODIPine Besylate 5 MG TABLET PO (08:45)
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
[2023-10-29] MEDS: hydrOXYzine HCL 25 MG TABLET PO (18:02)
[2023-10-29] MEDS: QUEtiapine Fumarate 50 MG TABLET PO ×2 (18:05→23:01)
[2023-10-29 19:00] VITALS: BP 147/76; PULSE 90; RESP 16; TEMP 37; O2SAT 97
[2023-10-29 21:20] VITALS: BP 150/76
[2023-10-29] MEDS: Divalproex Sodium ER 500 MG TAB.ER.24H 1500 MG PO (23:01)
[2023-10-29] MEDS: traZODone HCL 50 MG TABLET PO (23:02)
[2023-10-29] MEDS: Paliperidone ER 6 MG TAB.ER.24 PO (23:02)
[2023-10-29] MEDS: Lithium Carbonate ER 300 MG TABLET.ER 600 MG PO (23:02)
[2023-10-30] MEDS: traZODone HCL 50 MG TABLET PO ×2 (00:46→22:56)
[2023-10-30] MEDS: hydrOXYzine HCL 25 MG TABLET PO ×2 (00:46→20:12)
[2023-10-30 08:25] VITALS: BP 142/76; PULSE 78; RESP 20; TEMP 36.3
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
[2023-10-30] MEDS: amLODIPine Besylate 5 MG TABLET PO (08:42)
[2023-10-30 20:10] VITALS: BP 166/79; PULSE 86; RESP 18; TEMP 36.2; O2SAT 99
[2023-10-30] MEDS: Lithium Carbonate ER 300 MG TABLET.ER 600 MG PO (20:10)
[2023-10-30] MEDS: QUEtiapine Fumarate 50 MG TABLET PO (20:11)
[2023-10-30] MEDS: Divalproex Sodium ER 500 MG TAB.ER.24H 1500 MG PO (20:11)
[2023-10-30] MEDS: Paliperidone ER 9 MG TAB.ER.24 PO (20:28)
[2023-10-31 07:48] VITALS: BP 126/68; PULSE 74; RESP 14; TEMP 36.9; O2SAT 100
[2023-10-31] MEDS: amLODIPine Besylate 5 MG TABLET PO (08:37)
--- NOTE | 2023-10-31 08:56 | P.PNPSI_ITS ---
Subjective Subjective Date of Service: 10/31/23 Reason For Visit: manic psychosis Subjective Notes: Conditional Voluntary Interim History: Reviewed with Dr. Jimenes. Pt continues tangential, flight of ideas. rambling. Interrupting T/W multiple times during conversation. Pt reports feeling good ; pt stated, I slept well last night. I don't want to take a long acting injection while I'm in the hospital. I want to discuss it with Dr. Castro. I will show my mother I am not psychotic by my actions and not my words . denies SI/HI/VH/AH. Valporic acid level 103.0 [place] level 0.47 Increased [place] to 900mg PO bedtime. Medication Compliance: Yes Side effects from medications: No Attending Groups: Yes Review of Systems Constitutional: Reports as per HPI Eyes: Reports as per HPI Reports as per HPI Cardiovascular: Reports as per HPI Respiratory: Reports as per HPI Gastrointestinal: Reports as per HPI Genitourinary: Reports as per HPI Musculoskeletal: Reports as per HPI Skin/Breast: Reports as per HPI Reports as per HPI Psychiatric: Reports as per HPI Endocrine: Reports as per HPI Hematologic/Lymphatic: Reports as per HPI Allergic/Immunologic: Reports as per HPI Mental Status Exam Mental Status Exam Narrative: Pt is alert and oriented; behavior is cooperative and calm; dressed in casual attire; mood is described as good ; eye contact intense at times; hyperverbal, not pressured or rapid; some organized but continues tangential, flight of ideas. denies SI/HI/VH/AH. Diagnostics Vital Signs (24Hr): Vital Signs - 24 hr 10/30/23 20:10 10/31/23 07:48 Temperature 97.2 F 98.4 F Pulse Rate 86 74 Respiratory Rate 18 14 Blood Pressure 166/79 H 126/68 Pulse Oximetry 99 100 Oxygen Delivery Method Room Air Room Air BMI result Body Mass Index 29.3 Labs 10/25/23 08:24 10/31/23 08:55 Medications Medications Current Medications Acetaminophen (Acetaminophen 325 Mg Tablet) 650 mg PO Q6H PRN PRN Reason: Headache/Pain Mild Scale (1-3) Last Admin: 10/24/23 15:48 Dose: 650 mg Al Hydroxide/Mg Hydroxide (Magnesium Hydrox/Alum Hydrox 30 Ml Oral.Susp) 30 ml PO Q6H PRN PRN Reason: Heartburn/Nausea Amlodipine Besylate (Amlodipine Besylate 5 Mg Tablet) 5 mg PO DAILY ALPESH; Protocol Last Admin: 10/31/23 08:37 Dose: 5 mg Benztropine Mesylate (Benztropine Mesylate 1 Mg Tablet) 1 mg PO BEDTIME PRN PRN Reason: EPS Last Admin: 10/17/23 22:15 Dose: 1 mg Divalproex Sodium (Divalproex Sodium Er 500 Mg Tab.Er.24h) 1,500 mg PO BEDTIME ALPESH Last Admin: 10/30/23 20:11 Dose: 1,500 mg Hydroxyzine HCl (Hydroxyzine Hcl 25 Mg Tablet) 25 mg PO Q6H PRN PRN Reason: Anxiety Last Admin: 10/30/23 20:12 Dose: 25 mg [place] Carbonate ([place] Carbonate Er 300 Mg Tablet.Er) 600 mg PO BEDTIME ALPESH Last Admin: 10/30/23 20:10 Dose: 600 mg Magnesium Hydroxide (Milk Of Magnesia 30 Ml Oral.Susp) 30 ml PO DAILY PRN PRN Reason: Constipation Paliperidone (Paliperidone Er 9 Mg Tab.Er.24) 9 mg PO BEDTIME ALPESH Last Admin: 10/30/23 20:28 Dose: 9 mg Quetiapine Fumarate (Quetiapine Fumarate 50 Mg Tablet) 50 mg PO BID PRN PRN Reason: Psychosis Last Admin: 10/30/23 20:11 Dose: 50 mg Trazodone HCl (Trazodone Hcl 50 Mg Tablet) 50 mg PO BEDTIME MRX1 PRN PRN Reason: Insomnia Last Admin: 10/30/23 22:56 Dose: 50 mg Allergies Allergies Allergy/AdvReac Type Severity Reaction Status Date / Time sesame oil Allergy Anaphylaxis Verified 10/10/23 19:24 sesame seed Allergy Anaphylaxis Verified 10/10/23 19:24 tree nut Allergy Anaphylaxis Verified 10/10/23 19:24 Assessment & Plan Assessment & Plan (1) Bipolar 1 disorder, manic, moderate: Status: Acute Code(s): F31.12 - Bipolar disorder, current episode manic without psychotic features, moderate Plan Patient is a 23 year old male with hx of Bipolar d/o who presented [place] [facility] [place] from [facility] after visiting a friend and presenting manic and displaying sexualized behaviors in the closet. Hospital course 10/12: Continue current plan. 10/13: Continue current management and treatment plan. 10/14: On 1:1 safety checks. Disorganized. Wearing multiple layers of clothing, some clothing on backwards. Staffed notified T/W, pt walked into shower room, did not disrobe, however urinated and walked out of shower room without bathing self despite encouragement from staff. medication compliant. Pt retracted 3 day. Valporic acid 107.5 today; decreased dose from 750mg PO BID to Depakote 500mg PO BID. DC Haldol and Ativan Start: Seroquel 50mg PO BID Cogentin 1mg PO bedtime 10/15: Patient pleasant; still disorganized in speech behavior but staff agree he is doing better. Still struggling with sleep though did sleep a little better last night; attended some groups today. On approach patient says he is great and thinks science writer for meeting with him. He then explains why he is great saying I like my room... I like my bed... I like these ellis... I like that[points to vent]... Patient talked a little bit about the incident leading up to this admission and said that he got dressed in the proper fashion before [he] went to meet a girl... Patient says that he has been on Depakote in the past; he agrees he stopped taking it but is unable to give any kind of timeline. Discussed medication management and patient agrees to change his outpatient dose to make it long- acting and put it at bedtime to help with insomnia; he also asks for Seroquel to be put at bedtime since he is having trouble sleeping. 10/16: Continues on 1:1 safety checks d/t disorganization. Pt unable to have logical conversation, tangential, flight of ideas. When asked if he recalled what brought him into the hospital, pt stated, yeah. I had a panic attack and a bisexual experience. Panic at the disco. 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 I'm not trying to steal your . Pt is medication compliant. 10/17: Continues on 1:1 safety checks d/t disorganization. Pt unable to have logical conversation, tangential, flight of ideas. Pt reports feeling great today; pt stated, I'm trying to work on my posture. I'm not in the Matrix. I see the world in color. I'm the question . Spoke to patient's outpatient psychiatrist, Dr. Jarett Castro, who reported hx of taking: Depakote 1500mg PO bedtime Seroquel 200mg PO BID Hx of failed meds: Olanzapine (pt did not like this med) Risperidal (pt also did not like) Latuda (made him manic) Invega discussed possibly adding lithium and increasing seroquel dose. 10/18: Pt placed on 5 minute checks; presents a bit more organized than days prior. Continues tangential, flight of ideas. Pt stated, I like the Seroquel and Depakote dance. I was away from my pulls which was the problem. I'm trying to get back to [employer]. I was in sport mode. 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 medication compliant, labs to be drawn tomorrow morning. Pt reports taking lithium in the past but it made him psychotic . Continue current treatment plan. 10/19: pt strongly expresses desire to remain on present regimen for now. hyperverbal and disorganized. continue current mgmt. 10/20: presentation similar to yesterday. not interested in changing regimen. continue current mgmt. 10/21: taken off 5 minute safety checks and placed on 15's. pt is in behavioral control. However, continues hyperverbal and tangential. 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 I'm trying to grapple with the fact that I'm a closeted bisexual who needed to see the sun and is oppressed by race and fear of Covid. Why do you think I was eating the [employer] cards? Increase Seroquel to 300mg PO BID. Start: [place] 150mg PO bedtime 10/22: Continues manic with hyperverbal speech and tangential thought process. Remains in behavioral control. denies any side effects from medications. Increase [place] to 300mg PO bedtime 10/23: Pt continues somewhat hyperverbal, appears to be slowing down. Continues tangential. pt stated, If Dr. Eulalio Castro thinks I need to do something then by God I will do it . denies any side effects from medications. social with peers. attending groups. Increase Seroquel to 400mg PO BID 10/24: Continues similar to yesterday. Pt reports feeling good ; pt stated, I feel cognitively perfect. I am medicine compliant. I know what they do and the side effects . Pt presents with intense eye contact at times. decreased seroquel to 200mg PO BID. 10/25: Pt continues to present tangential and with flight of ideas. Pt stated, I know I'm not in the Matrix. I am Jacky Alves. I'm trying to relearn my eating habits. T/W and social media strategist (Shannon) present for family meeting with patient's mother. Patient's mother reported she felt pt is still not at baseline and continues psychotic. She reported hx of positive effect with invega and zyprexa. Pt reports he does not want to take risperidal or latuda d/t negative symptoms while taking them in the past. Decrease Seroquel to 200mg PO bedtime Start: Invega 3mg PO bedtime 10/28: Pt reports feeling good today; continues tangential, flight of ideas. rambling. Making bizarre statements at times. Pt stated, I see the world in colors. This place should be more colorful. They ignore it. Increase Invega to 6mg PO bedtime Increase [place] to 600mg PO bedtime. Change: Seroquel to 50mg PO BID PRN 10/29: Pt reports feeling good today; continues tangential, flight of ideas. rambling. 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 And my family is the [place]; a dysfunctional [place] . Continue current tx plan. 10/30: Pt continues tangential, flight of ideas. rambling. Discussed argument with peer last evening. Pt stated, I'm feeling on edge from yesterday. My peer was walking around calling me faggot, while staring at me. A movie was on with Sir Joby Davis; he's a villarreal with a K. So I flipped him off like in the movie [id number]. He then poured the milk on me . Increase Invega to 9mg PO bedtime. 10/31: Pt continues tangential, flight of ideas. rambling. Interrupting T/W multiple times during conversation. Pt reports feeling good ; pt stated, I slept well last night. I don't want to take a long acting injection while I'm in the hospital. I want to discuss it with Dr. Castro. I will show my mother I am not psychotic by my actions and not my words . denies SI/HI/VH/AH. Valporic acid level 103.0 [place] level 0.47 Increased [place] to 900mg PO bedtime. Patient educated on: diagnosis and medication risk/benefits Informed Consent: understands Reason for continued inpatient stay Substantial Risk for: med/psych decompensation Time Spent With Patient Time: Total time managing care of this patient today _20___ minutes.
[2023-10-31 09:10] LABS: Ammonia 28 umol/L (13-55)
[2023-10-31 09:11] LABS: Lithium 0.47 mmol/L (0.60-1.20)
[2023-10-31 09:25] LABS: Alanine Aminotransferase 10 U/L (0-40); Albumin Level 4.5 g/dL (3.5-5.0); Alkaline Phosphatase 60 U/L (39-117); Anion Gap 11 (12-20); Aspartate Amino Transferase 12 U/L (5-37); Bilirubin Direct 0.3 mg/dL (0.0-0.5); Bilirubin Total 0.7 mg/dL (0.0-1.0); Blood Urea Nitrogen 10 mg/dL (9-16); Carbon Dioxide 31 mmol/L (22-29); Chloride 102 mmol/L (96-108); Creatinine Clr Calc Pharmacy 174.2; Estimated Glomerular Filt Rate > 60; Potassium 4.3 mmol/L (3.3-5.1); Sodium 140 mmol/L (135-145); Total Protein 7.5 g/dL (6.5-8.0)
[2023-10-31 09:39] LABS: TSH reflex Free T4 2.25 uIU/mL (0.32-4.0)
[2023-10-31 10:44] VITALS: BMI 29.7
[2023-10-31 20:00] VITALS: BP 128/70; PULSE 96; RESP 16; TEMP 36.4; O2SAT 100
[2023-10-31] MEDS: Paliperidone ER 9 MG TAB.ER.24 PO (20:47)
[2023-10-31] MEDS: Divalproex Sodium ER 500 MG TAB.ER.24H 1500 MG PO (20:47)
[2023-10-31] MEDS: Lithium Carbonate ER 450 MG TABLET.ER 900 MG PO (20:47)
[2023-10-31] MEDS: QUEtiapine Fumarate 100 MG TABLET PO (21:03)
[2023-11-01] MEDS: amLODIPine Besylate 5 MG TABLET PO (09:53)
[2023-11-01 10:01] VITALS: BP 137/77; PULSE 102; RESP 18; TEMP 36.6; O2SAT 97
--- NOTE | 2023-11-01 16:25 | HO.PSYCHPN ---
Subjective Subjective Date of Service: 11/01/23 Reason For Visit: manic psychosis Subjective Notes: Conditional Voluntary Interim History: The patient is seen in psychiatric coverage patient is more reflective less manic has difficulty allowing and full impact of his behavior prior to admission. He does seem to be responding to present treatment Medication Compliance: Yes Mental Status Exam Mental Status Exam Narrative: Pt is alert and oriented; behavior is cooperative and calm; dressed in casual attire; mood is described as good ; eye contact intense at times; hyperverbal, not pressured or rapid; some organized but continues tangential, flight of ideas. denies SI/HI/VH/AH. Some improved insight agreeable to possibility of longer-term care. Difficulty understanding consequences of casually missing his medication as an outpatient need for vigilance Diagnostics Vital Signs (24Hr): Vital Signs - 24 hr 10/31/23 20:00 11/01/23 10:01 Temperature 97.6 F 97.9 F Pulse Rate 96 102 H Respiratory Rate 16 18 Blood Pressure 128/70 137/77 Pulse Oximetry 100 97 Oxygen Delivery Method Room Air Room Air BMI result Body Mass Index 29.7 Labs 10/25/23 08:24 11/04/23 18:12 Labs: Laboratory Results - last 48 hr 10/31/23 08:55 Sodium 140 Potassium 4.3 Chloride 102 Carbon Dioxide 31 H Anion Gap 11 L BUN 10 Creatinine 0.80 Estim Creat Clear Calc 174.2 Estimated GFR > 60 Total Bilirubin 0.7 Direct Bilirubin 0.3 AST 12 ALT 10 Alkaline Phosphatase 60 Ammonia 28 Total Protein 7.5 Albumin 4.5 TSH 2.25 Valproic Acid 103.0 H Ahtanum 0.47 L Medications Medications Current Medications Acetaminophen (Acetaminophen 325 Mg Tablet) 650 mg PO Q6H PRN PRN Reason: Headache/Pain Mild Scale (1-3) Last Admin: 10/24/23 15:48 Dose: 650 mg Al Hydroxide/Mg Hydroxide (Magnesium Hydrox/Alum Hydrox 30 Ml Oral.Susp) 30 ml PO Q6H PRN PRN Reason: Heartburn/Nausea Amlodipine Besylate (Amlodipine Besylate 5 Mg Tablet) 5 mg PO DAILY ALPESH; Protocol Last Admin: 11/01/23 09:53 Dose: 5 mg Benztropine Mesylate (Benztropine Mesylate 1 Mg Tablet) 1 mg PO BEDTIME PRN PRN Reason: EPS Last Admin: 10/17/23 22:15 Dose: 1 mg Divalproex Sodium (Divalproex Sodium Er 500 Mg Tab.Er.24h) 1,500 mg PO BEDTIME ALPESH Last Admin: 10/31/23 20:47 Dose: 1,500 mg Hydroxyzine HCl (Hydroxyzine Hcl 25 Mg Tablet) 25 mg PO Q6H PRN PRN Reason: Anxiety Last Admin: 10/30/23 20:12 Dose: 25 mg Ahtanum Carbonate (Ahtanum Carbonate Er 450 Mg Tablet.Er) 900 mg PO BEDTIME ALPESH Last Admin: 10/31/23 20:47 Dose: 900 mg Magnesium Hydroxide (Milk Of Magnesia 30 Ml Oral.Susp) 30 ml PO DAILY PRN PRN Reason: Constipation Paliperidone (Paliperidone Er 9 Mg Tab.Er.24) 9 mg PO BEDTIME ALPESH Last Admin: 10/31/23 20:47 Dose: 9 mg Quetiapine Fumarate (Quetiapine Fumarate 100 Mg Tablet) 100 mg PO BEDTIME PRN PRN Reason: Sleep Last Admin: 10/31/23 21:03 Dose: 100 mg Allergies Allergies Allergy/AdvReac Type Severity Reaction Status Date / Time sesame oil Allergy Anaphylaxis Verified 10/10/23 19:24 sesame seed Allergy Anaphylaxis Verified 10/10/23 19:24 tree nut Allergy Anaphylaxis Verified 10/10/23 19:24 Assessment & Plan Assessment & Plan (1) Bipolar 1 disorder, manic, moderate: Status: Acute Code(s): F31.12 - Bipolar disorder, current episode manic without psychotic features, moderate Plan Patient is a 23 year old male with hx of Bipolar d/o who presented to [facility] via EMS from [facility] after visiting a friend and presenting manic and displaying sexualized behaviors in the closet. Hospital course 10/12: Continue current plan. 10/13: Continue current management and treatment plan. 10/14: On 1:1 safety checks. Disorganized. Wearing multiple layers of clothing, some clothing on backwards. Staffed notified T/W, pt walked into shower room, did not disrobe, however urinated and walked out of shower room without bathing self despite encouragement from staff. medication compliant. Pt retracted 3 day. Valporic acid 107.5 today; decreased dose from 750mg PO BID to Depakote 500mg PO BID. DC Haldol and Ativan Start: Asifl 50mg PO BID Cogentin 1mg PO bedtime 10/15: Patient pleasant; still disorganized in speech behavior but staff agree he is doing better. Still struggling with sleep though did sleep a little better last night; attended some groups today. On approach patient says he is great and thinks gag writer for meeting with him. He then explains why he is great saying I like my room... I like my bed... I like these ellis... I like that[points to vent]... Patient talked a little bit about the incident leading up to this admission and said that he got dressed in the proper fashion before [he] went to meet a girl... Patient says that he has been on Depakote in the past; he agrees he stopped taking it but is unable to give any kind of timeline. Discussed medication management and patient agrees to change his outpatient dose to make it long-acting and put it at bedtime to help with insomnia; he also asks for Seroquel to be put at bedtime since he is having trouble sleeping. 10/16: Continues on 1:1 safety checks d/t disorganization. Pt unable to have logical conversation, tangential, flight of ideas. When asked if he recalled what brought him into the hospital, pt stated, yeah. I had a panic attack and a bisexual experience. Panic at the disco. 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 I'm not trying to steal your . Pt is medication compliant. 10/17: Continues on 1:1 safety checks d/t disorganization. Pt unable to have logical conversation, tangential, flight of ideas. Pt reports feeling great today; pt stated, I'm trying to work on my posture. I'm not in the Matrix. I see the world in color. I'm the question . Spoke to patient's outpatient psychiatrist, Dr. Jarett Castro, who reported hx of taking: Depakote 1500mg PO bedtime Seroquel 200mg PO BID Hx of failed meds: Olanzapine (pt did not like this med) Risperidal (pt also did not like) Latuda (made him manic) Invega discussed possibly adding lithium and increasing seroquel dose. 10/18: Pt placed on 5 minute checks; presents a bit more organized than days prior. Continues tangential, flight of ideas. Pt stated, I like the Seroquel and Depakote dance. I was away from my pulls which was the problem. I'm trying to get back to [employer]. I was in sport mode. 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 Pt reports taking lithium in the past but it made him psychotic . Continue current treatment plan. 10/19: pt strongly expresses desire to remain on present regimen for now. hyperverbal and disorganized. continue current mgmt. 10/20: presentation similar to yesterday. not interested in changing regimen. continue current mgmt. 10/21: taken off 5 minute safety checks and placed on 15's. pt is in behavioral control. However, continues hyperverbal and tangential. 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 I'm trying to grapple with the fact that I'm a closeted bisexual who needed to see the sun and is oppressed by race and fear of Covid. Why do you think I was eating the [employer] cards? Increase Seroquel to 300mg PO BID. Start: Ahtanum 150mg PO bedtime 10/22: Continues manic with hyperverbal speech and tangential thought process. Remains in behavioral control. denies any side effects from medications. Increase Ahtanum to 300mg PO bedtime 10/23: Pt continues somewhat hyperverbal, appears to be slowing down. Continues tangential. pt stated, If Dr. Eulalio Castro thinks I need to do something then by God I will do it . denies any side effects from medications. social with peers. attending groups. Increase Seroquel to 400mg PO BID 10/24: Continues similar to yesterday. Pt reports feeling good ; pt stated, I feel cognitively perfect. I am medicine compliant. I know what they do and the side effects . Pt presents with intense eye contact at times. decreased seroquel to 200mg PO BID. 10/25: Pt continues to present tangential and with flight of ideas. Pt stated, I know I'm not in the Matrix. I am Jacky Alves. I'm trying to relearn my eating habits. T/W and social sciences instructor (Shannon) present for family meeting with patient's mother. Patient's mother reported she felt pt is still not at baseline and continues psychotic. She reported hx of positive effect with invega and zyprexa. Pt reports he does not want to take risperidal or latuda d/t negative symptoms while taking them in the past. Decrease Seroquel to 200mg PO bedtime Start: Invega 3mg PO bedtime 10/28: Pt reports feeling good today; continues tangential, flight of ideas. rambling. Making bizarre statements at times. Pt stated, I see the world in colors. This place should be more colorful. They ignore it. Increase Invega to 6mg PO bedtime Increase Ahtanum to 600mg PO bedtime. Change: Seroquel to 50mg PO BID PRN 10/29: Pt reports feeling good today; continues tangential, flight of ideas. rambling. 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 And my family is the [employer] [place]; a dysfunctional [place] . Continue current tx plan. 10/30: Pt continues tangential, flight of ideas. rambling. Discussed argument with peer last evening. Pt stated, I'm feeling on edge from yesterday. My peer was walking around calling me faggot, while staring at me. A movie was on with Sir Joby Davis; he's a villarreal with a K. So I flipped him off like in the movie [employer]. He then poured the milk on me . Increase Invega to 9mg PO bedtime. 10/31: Pt continues tangential, flight of ideas. rambling. Interrupting T/W multiple times during conversation. Pt reports feeling good ; pt stated, I slept well last night. I don't want to take a long acting injection while I'm in the hospital. I want to discuss it with Dr. Castro. I will show my mother I am not psychotic by my actions and not my words . denies SI/HI/VH/AH. Valporic acid level 103.0 Ahtanum level 0.47 Increased Ahtanum to 900mg PO bedtime. 11/01/2022 Consider long-acting injectable patient has history reportedly inadvertently missing dose medication having repeat psychiatric hospitalizations that are markedly interfering with his life instability continue lithium and Depakote no significant adverse effects noted improvement noted Reason for continued inpatient stay Substantial Risk for: inability to function and rapid decompensation Time Spent With Patient Time: Total time managing care of this patient today ____ minutes.
[2023-11-01] MEDS: Acetaminophen 325 MG TABLET 650 MG PO (19:53)
[2023-11-01 20:35] VITALS: BP 142/58; PULSE 112; RESP 20; TEMP 37.1
[2023-11-01] MEDS: Lithium Carbonate ER 450 MG TABLET.ER 900 MG PO (20:54)
[2023-11-01] MEDS: Divalproex Sodium ER 500 MG TAB.ER.24H 1500 MG PO (20:54)
[2023-11-01] MEDS: Paliperidone ER 9 MG TAB.ER.24 PO (20:54)
[2023-11-01] MEDS: QUEtiapine Fumarate 100 MG TABLET PO (22:26)
[2023-11-02] MEDS: amLODIPine Besylate 5 MG TABLET PO (09:32)
[2023-11-02 09:35] VITALS: BP 130/72; PULSE 96; RESP 18; TEMP 36.7; O2SAT 97
[2023-11-02] MEDS: Acetaminophen 325 MG TABLET 650 MG PO ×2 (11:07→22:13)
--- NOTE | 2023-11-02 11:39 | HO.PSYCHPN ---
Subjective Subjective Date of Service: 11/02/23 Reason For Visit: manic psychosis Subjective Notes: Conditional Voluntary Interim History: Pt reports overall shakiness. he also reports migraines. On exam- noted bilat action tremors, more pronounced on left hand. mild cogwheel on left hand, minimal to no cogwheel on right hand. No inducible myoclonus to explain shakiness. He presents with much more clear and logical thinking and engaging in meaning conversation about his treatment. No SI/HI. reviewed labs- depakote and lithium level. Review of Systems Review of Systems ROS unable to be obtained due to patient not answering questions Yes all other systems are reviewed and are negative Constitutional: Reports as per HPI Eyes: Reports as per HPI Reports as per HPI Cardiovascular: Reports as per HPI Respiratory: Reports as per HPI Gastrointestinal: Reports as per HPI Genitourinary: Reports as per HPI Musculoskeletal: Reports as per HPI Skin/Breast: Reports as per HPI Reports as per HPI Psychiatric: Reports as per HPI Endocrine: Reports as per HPI Hematologic/Lymphatic: Reports as per HPI Allergic/Immunologic: Reports as per HPI Mental Status Exam Mental Status Exam Narrative: Pt is alert and oriented; behavior is cooperative and calm; dressed in casual attire; mood is described as good ; eye contact intense at times; hyperverbal, not pressured or rapid; some organized but continues tangential, flight of ideas. denies SI/HI/VH/AH. Diagnostics Vital Signs (24Hr): Vital Signs - 24 hr 11/01/23 20:35 11/02/23 09:35 Temperature 98.7 F 98.1 F Pulse Rate 112 H 96 Respiratory Rate 20 18 Blood Pressure 142/58 H 130/72 Pulse Oximetry 97 Oxygen Delivery Method Room Air BMI result Body Mass Index 29.7 Labs 10/25/23 08:24 11/04/23 18:12 Medications Medications Current Medications Acetaminophen (Acetaminophen 325 Mg Tablet) 650 mg PO Q6H PRN PRN Reason: Headache/Pain Mild Scale (1-3) Last Admin: 11/02/23 11:07 Dose: 650 mg Al Hydroxide/Mg Hydroxide (Magnesium Hydrox/Alum Hydrox 30 Ml Oral.Susp) 30 ml PO Q6H PRN PRN Reason: Heartburn/Nausea Amlodipine Besylate (Amlodipine Besylate 5 Mg Tablet) 5 mg PO DAILY ALPESH; Protocol Last Admin: 11/02/23 09:32 Dose: 5 mg Benztropine Mesylate (Benztropine Mesylate 1 Mg Tablet) 1 mg PO BEDTIME PRN PRN Reason: EPS Last Admin: 10/17/23 22:15 Dose: 1 mg Divalproex Sodium (Divalproex Sodium Er 500 Mg Tab.Er.24h) 1,500 mg PO BEDTIME ALPESH Last Admin: 11/01/23 20:54 Dose: 1,500 mg Hydroxyzine HCl (Hydroxyzine Hcl 25 Mg Tablet) 25 mg PO Q6H PRN PRN Reason: Anxiety Last Admin: 10/30/23 20:12 Dose: 25 mg [place] Carbonate ([place] Carbonate Er 450 Mg Tablet.Er) 900 mg PO BEDTIME ALPESH Last Admin: 11/01/23 20:54 Dose: 900 mg Magnesium Hydroxide (Milk Of Magnesia 30 Ml Oral.Susp) 30 ml PO DAILY PRN PRN Reason: Constipation Paliperidone (Paliperidone Er 9 Mg Tab.Er.24) 9 mg PO BEDTIME ALPESH Last Admin: 11/01/23 20:54 Dose: 9 mg Quetiapine Fumarate (Quetiapine Fumarate 100 Mg Tablet) 100 mg PO BEDTIME PRN PRN Reason: Sleep Last Admin: 11/01/23 22:26 Dose: 100 mg Allergies Allergies Allergy/AdvReac Type Severity Reaction Status Date / Time sesame oil Allergy Anaphylaxis Verified 10/10/23 19:24 sesame seed Allergy Anaphylaxis Verified 10/10/23 19:24 tree nut Allergy Anaphylaxis Verified 10/10/23 19:24 Assessment & Plan Assessment & Plan (1) Bipolar 1 disorder, manic, moderate: Status: Acute Code(s): F31.12 - Bipolar disorder, current episode manic without psychotic features, moderate Plan Patient is a 23 year old male with hx of Bipolar d/o who presented to [facility] via EMS from [facility] after visiting a friend and presenting manic and displaying sexualized behaviors in the closet. Hospital course 10/12: Continue current plan. 10/13: Continue current management and treatment plan. 10/14: On 1:1 safety checks. Disorganized. Wearing multiple layers of clothing, some clothing on backwards. Staffed notified T/W, pt walked into shower room, did not disrobe, however urinated and walked out of shower room without bathing self despite encouragement from staff. medication compliant. Pt retracted 3 day. Valporic acid 107.5 today; decreased dose from 750mg PO BID to Depakote 500mg PO BID. DC Haldol and Ativan Start: Seroquel 50mg PO BID Cogentin 1mg PO bedtime 10/15: Patient pleasant; still disorganized in speech behavior but staff agree he is doing better. Still struggling with sleep though did sleep a little better last night; attended some groups today. On approach patient says he is great and thinks teletypewriter installer for meeting with him. He then explains why he is great saying I like my room... I like my bed... I like these ellis... I like that[points to vent]... Patient talked a little bit about the incident leading up to this admission and said that he got dressed in the proper fashion before [he] went to meet a girl... Patient says that he has been on Depakote in the past; he agrees he stopped taking it but is unable to give any kind of timeline. Discussed medication management and patient agrees to change his outpatient dose to make it long-acting and put it at bedtime to help with insomnia; he also asks for Seroquel to be put at bedtime since he is having trouble sleeping. 10/16: Continues on 1:1 safety checks d/t disorganization. Pt unable to have logical conversation, tangential, flight of ideas. When asked if he recalled what brought him into the hospital, pt stated, yeah. I had a panic attack and a bisexual experience. Panic at the disco. 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 I'm not trying to steal your . Pt is medication compliant. 10/17: Continues on 1:1 safety checks d/t disorganization. Pt unable to have logical conversation, tangential, flight of ideas. Pt reports feeling great today; pt stated, I'm trying to work on my posture. I'm not in the Matrix. I see the world in color. I'm the question . Spoke to patient's outpatient psychiatrist, Dr. Jarett Castro, who reported hx of taking: Depakote 1500mg PO bedtime Seroquel 200mg PO BID Hx of failed meds: Olanzapine (pt did not like this med) Risperidal (pt also did not like) Latuda (made him manic) Invega discussed possibly adding lithium and increasing seroquel dose. 10/18: Pt placed on 5 minute checks; presents a bit more organized than days prior. Continues tangential, flight of ideas. Pt stated, I like the Seroquel and Depakote dance. I was away from my pulls which was the problem. I'm trying to get back to [employer]. I was in sport mode. 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 medication compliant, labs to be drawn tomorrow morning. Pt reports taking lithium in the past but it made him psychotic . Continue current treatment plan. 10/19: pt strongly expresses desire to remain on present regimen for now. hyperverbal and disorganized. continue current mgmt. 10/20: presentation similar to yesterday. not interested in changing regimen. continue current mgmt. 10/21: taken off 5 minute safety checks and placed on 15's. pt is in behavioral control. However, continues hyperverbal and tangential. 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 I'm trying to grapple with the fact that I'm a closeted bisexual who needed to see the sun and is oppressed by race and fear of Covid. Why do you think I was eating the [employer] cards? Increase Seroquel to 300mg PO BID. Start: [place] 150mg PO bedtime 10/22: Continues manic with hyperverbal speech and tangential thought process. Remains in behavioral control. denies any side effects from medications. Increase [place] to 300mg PO bedtime 10/23: Pt continues somewhat hyperverbal, appears to be slowing down. Continues tangential. pt stated, If Dr. Eulalio Castro thinks I need to do something then by God I will do it . denies any side effects from medications. social with peers. attending groups. Increase Seroquel to 400mg PO BID 10/24: Continues similar to yesterday. Pt reports feeling good ; pt stated, I feel cognitively perfect. I am medicine compliant. I know what they do and the side effects . Pt presents with intense eye contact at times. decreased seroquel to 200mg PO BID. 10/25: Pt continues to present tangential and with flight of ideas. Pt stated, I know I'm not in the Matrix. I am Jacky Alves. I'm trying to relearn my eating habits. T/W and case management social worker (Shannon) present for family meeting with patient's mother. Patient's mother reported she felt pt is still not at baseline and continues psychotic. She reported hx of positive effect with invega and zyprexa. Pt reports he does not want to take risperidal or latuda d/t negative symptoms while taking them in the past. Decrease Seroquel to 200mg PO bedtime Start: Invega 3mg PO bedtime 10/28: Pt reports feeling good today; continues tangential, flight of ideas. rambling. Making bizarre statements at times. Pt stated, I see the world in colors. This place should be more colorful. They ignore it. Increase Invega to 6mg PO bedtime Increase [place] to 600mg PO bedtime. Change: Seroquel to 50mg PO BID PRN 10/29: Pt reports feeling good today; continues tangential, flight of ideas. rambling. 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 And my family is the [place]; a dysfunctional [place] . Continue current tx plan. 10/30: Pt continues tangential, flight of ideas. rambling. Discussed argument with peer last evening. Pt stated, I'm feeling on edge from yesterday. My peer was walking around calling me faggot, while staring at me. A movie was on with Sir Joby Davis; he's a villarreal with a K. So I flipped him off like in the movie [employer]. He then poured the milk on me . Increase Invega to 9mg PO bedtime. 10/31: Pt continues tangential, flight of ideas. rambling. Interrupting T/W multiple times during conversation. Pt reports feeling good ; pt stated, I slept well last night. I don't want to take a long acting injection while I'm in the hospital. I want to discuss it with Dr. Castro. I will show my mother I am not psychotic by my actions and not my words . denies SI/HI/VH/AH. Valporic acid level 103.0 [place] level 0.47 Increased [place] to 900mg PO bedtime. 11/02 episode of ovreall shakiness, on exam--> bilat action tremors, more pronounced on left side. mild cogwheel on left, minimal to non on right. No inducible myoclonus or expontaneous myoclonus to explain overall shaking. otherwise, much improved since admission. Reason for continued inpatient stay Substantial Risk for: inability to function Time Spent With Patient Time: Total time managing care of this patient today ____ minutes.
[2023-11-02] MEDS: Benztropine Mesylate 0.5 MG TABLET PO (12:28)
[2023-11-02] MEDS: SUMAtriptan succinate 50 MG TABLET PO ×2 (12:28→13:54)
[2023-11-02 19:14] VITALS: PULSE 98; RESP 18; TEMP 36.7; O2SAT 97
[2023-11-02 20:30] VITALS: BP 138/60
[2023-11-02] MEDS: Lithium Carbonate ER 450 MG TABLET.ER 900 MG PO (20:39)
[2023-11-02] MEDS: Divalproex Sodium ER 500 MG TAB.ER.24H 1500 MG PO (20:39)
[2023-11-02] MEDS: Paliperidone ER 9 MG TAB.ER.24 PO (20:40)
[2023-11-02] MEDS: QUEtiapine Fumarate 100 MG TABLET PO (22:13)
[2023-11-03 09:00] VITALS: BP 150/70; PULSE 112; RESP 18; TEMP 37.1; O2SAT 95
[2023-11-03] MEDS: amLODIPine Besylate 5 MG TABLET PO (09:34)
[2023-11-03 11:14] VITALS: BP 147/74; PULSE 102; RESP 18; TEMP 36.4; O2SAT 95
[2023-11-03] MEDS: Acetaminophen 325 MG TABLET 650 MG PO (11:18)
[2023-11-03] MEDS: diphenhydrAMINE HCL 25 MG CAPSULE 50 MG PO (11:40)
[2023-11-03] MEDS: SUMAtriptan succinate 100 MG TABLET PO (12:33)
--- NOTE | 2023-11-03 15:39 | HO.PSYCHPN ---
Subjective Subjective Date of Service: 11/03/23 Reason For Visit: manic psychosis Subjective Notes: Conditional Voluntary Interim History: Pt reports improvement of migraines with sumatriptan. also had tylenol with limited effect. He was able to sleep. No overt delusional content. On exam- noted bilat action tremors, more pronounced on left hand. mild cogwheel on left hand, minimal to no cogwheel on right hand. No inducible myoclonus to explain shakiness. He presents with much more clear and logical thinking and engaging in meaning conversation about his treatment. No SI/HI. reviewed labs- depakote and lithium level not trough levels, may want to repeat closer to night time dose not morning of. Review of Systems Review of Systems ROS unable to be obtained due to patient not answering questions Yes all other systems are reviewed and are negative Constitutional: Reports as per HPI Eyes: Reports as per HPI Reports as per HPI Cardiovascular: Reports as per HPI Respiratory: Reports as per HPI Gastrointestinal: Reports as per HPI Genitourinary: Reports as per HPI Musculoskeletal: Reports as per HPI Skin/Breast: Reports as per HPI Reports as per HPI Psychiatric: Reports as per HPI Endocrine: Reports as per HPI Hematologic/Lymphatic: Reports as per HPI Allergic/Immunologic: Reports as per HPI Mental Status Exam Mental Status Exam Narrative: Pt is alert and oriented; behavior is cooperative and calm; dressed in casual attire; mood is described as good ; eye contact intense at times; hyperverbal, not pressured or rapid; some organized but continues tangential, flight of ideas. denies SI/HI/VH/AH. Diagnostics Vital Signs (24Hr): Vital Signs - 24 hr 11/02/23 19:14 11/02/23 20:30 11/03/23 09:00 Temperature 98.1 F 98.8 F Pulse Rate 98 112 H Respiratory Rate 18 18 Blood Pressure 138/60 150/70 H Pulse Oximetry 97 95 Oxygen Delivery Method Room Air Room Air 11/03/23 11:14 Temperature 97.5 F Pulse Rate 102 H Respiratory Rate 18 Blood Pressure 147/74 H Pulse Oximetry 95 Oxygen Delivery Method Room Air BMI result Body Mass Index 29.7 Labs 10/25/23 08:24 11/04/23 18:12 Labs: Laboratory Results - last 48 hr 11/03/23 08:47 [place] 0.80 Medications Medications Current Medications Acetaminophen (Acetaminophen 325 Mg Tablet) 650 mg PO Q6H PRN PRN Reason: Headache/Pain Mild Scale (1-3) Last Admin: 11/03/23 11:18 Dose: 650 mg Al Hydroxide/Mg Hydroxide (Magnesium Hydrox/Alum Hydrox 30 Ml Oral.Susp) 30 ml PO Q6H PRN PRN Reason: Heartburn/Nausea Amlodipine Besylate (Amlodipine Besylate 5 Mg Tablet) 5 mg PO DAILY ALPESH; Protocol Last Admin: 11/03/23 09:34 Dose: 5 mg Benztropine Mesylate (Benztropine Mesylate 0.5 Mg Tablet) 0.5 mg PO BID PRN PRN Reason: EPS Last Admin: 11/02/23 12:28 Dose: 0.5 mg Diphenhydramine HCl (Diphenhydramine Hcl 25 Mg Capsule) 50 mg PO Q6H PRN PRN Reason: sleep/allergic rx Last Admin: 11/03/23 11:40 Dose: 50 mg Divalproex Sodium (Divalproex Sodium Er 500 Mg Tab.Er.24h) 1,500 mg PO BEDTIME ALPESH Last Admin: 11/02/23 20:39 Dose: 1,500 mg [place] Carbonate ([place] Carbonate Er 450 Mg Tablet.Er) 900 mg PO BEDTIME ALPESH Last Admin: 11/02/23 20:39 Dose: 900 mg Magnesium Hydroxide (Milk Of Magnesia 30 Ml Oral.Susp) 30 ml PO DAILY PRN PRN Reason: Constipation Paliperidone (Paliperidone Er 9 Mg Tab.Er.24) 9 mg PO BEDTIME ALPESH Last Admin: 11/02/23 20:40 Dose: 9 mg Quetiapine Fumarate (Quetiapine Fumarate 100 Mg Tablet) 100 mg PO BEDTIME PRN PRN Reason: Sleep Last Admin: 11/02/23 22:13 Dose: 100 mg Sumatriptan Succinate (Sumatriptan Succinate 100 Mg Tablet) 100 mg PO DAILY PRN PRN Reason: Migraine Headache Last Admin: 11/03/23 12:33 Dose: 100 mg Allergies Allergies Allergy/AdvReac Type Severity Reaction Status Date / Time sesame oil Allergy Anaphylaxis Verified 10/10/23 19:24 sesame seed Allergy Anaphylaxis Verified 10/10/23 19:24 tree nut Allergy Anaphylaxis Verified 10/10/23 19:24 Assessment & Plan Assessment & Plan (1) Bipolar 1 disorder, manic, moderate: Status: Acute Code(s): F31.12 - Bipolar disorder, current episode manic without psychotic features, moderate Plan Patient is a 23 year old male with hx of Bipolar d/o who presented to [facility] via EMS from [facility] after visiting a friend and presenting manic and displaying sexualized behaviors in the closet. Hospital course 10/12: Continue current plan. 10/13: Continue current management and treatment plan. 10/14: On 1:1 safety checks. Disorganized. Wearing multiple layers of clothing, some clothing on backwards. Staffed notified T/W, pt walked into shower room, did not disrobe, however urinated and walked out of shower room without bathing self despite encouragement from staff. medication compliant. Pt retracted 3 day. Valporic acid 107.5 today; decreased dose from 750mg PO BID to Depakote 500mg PO BID. DC Haldol and Ativan Start: Seroquel 50mg PO BID Cogentin 1mg PO bedtime 10/15: Patient pleasant; still disorganized in speech behavior but staff agree he is doing better. Still struggling with sleep though did sleep a little better last night; attended some groups today. On approach patient says he is great and thinks appeals writer for meeting with him. He then explains why he is great saying I like my room... I like my bed... I like these ellis... I like that[points to vent]... Patient talked a little bit about the incident leading up to this admission and said that he got dressed in the proper fashion before [he] went to meet a girl... Patient says that he has been on Depakote in the past; he agrees he stopped taking it but is unable to give any kind of timeline. Discussed medication management and patient agrees to change his outpatient dose to make it long-acting and put it at bedtime to help with insomnia; he also asks for Seroquel to be put at bedtime since he is having trouble sleeping. 10/16: Continues on 1:1 safety checks d/t disorganization. Pt unable to have logical conversation, tangential, flight of ideas. When asked if he recalled what brought him into the hospital, pt stated, yeah. I had a panic attack and a bisexual experience. Panic at the disco. 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 I'm not trying to steal your . Pt is medication compliant. 10/17: Continues on 1:1 safety checks d/t disorganization. Pt unable to have logical conversation, tangential, flight of ideas. Pt reports feeling great today; pt stated, I'm trying to work on my posture. I'm not in the Matrix. I see the world in color. I'm the question . Spoke to patient's outpatient psychiatrist, Dr. Jarett Castro, who reported hx of taking: Depakote 1500mg PO bedtime Seroquel 200mg PO BID Hx of failed meds: Olanzapine (pt did not like this med) Risperidal (pt also did not like) Latuda (made him manic) Invega discussed possibly adding lithium and increasing seroquel dose. 10/18: Pt placed on 5 minute checks; presents a bit more organized than days prior. Continues tangential, flight of ideas. Pt stated, I like the Seroquel and Depakote dance. I was away from my pulls which was the problem. I'm trying to get back to [employer]. I was in sport mode. 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 Pt reports taking lithium in the past but it made him psychotic . Continue current treatment plan. 3: pt strongly expresses desire to remain on present regimen for now. hyperverbal and disorganized. continue current mgmt. 10/20: presentation similar to yesterday. not interested in changing regimen. continue current mgmt. 10/21: taken off 5 minute safety checks and placed on 15's. pt is in behavioral control. However, continues hyperverbal and tangential. 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 I'm trying to grapple with the fact that I'm a closeted bisexual who needed to see the sun and is oppressed by race and fear of Covid. Why do you think I was eating the Luc cards? Increase Seroquel to 300mg PO BID. Start: [place] 150mg PO bedtime 10/22: Continues manic with hyperverbal speech and tangential thought process. Remains in behavioral control. denies any side effects from medications. Increase [place] to 300mg PO bedtime 10/23: Pt continues somewhat hyperverbal, appears to be slowing down. Continues tangential. pt stated, If Dr. Eulalio Castro thinks I need to do something then by God I will do it . denies any side effects from medications. social with peers. attending groups. Increase Seroquel to 400mg PO BID 10/24: Continues similar to yesterday. Pt reports feeling good ; pt stated, I feel cognitively perfect. I am medicine compliant. I know what they do and the side effects . Pt presents with intense eye contact at times. decreased seroquel to 200mg PO BID. 10/25: Pt continues to present tangential and with flight of ideas. Pt stated, I know I'm not in the Matrix. I am Jacky Alves. I'm trying to relearn my eating habits. T/W and 7th grade social studies teacher (Shannon) present for family meeting with patient's mother. Patient's mother reported she felt pt is still not at baseline and continues psychotic. She reported hx of positive effect with invega and zyprexa. Pt reports he does not want to take risperidal or latuda d/t negative symptoms while taking them in the past. Decrease Seroquel to 200mg PO bedtime Start: Invega 3mg PO bedtime 10/28: Pt reports feeling good today; continues tangential, flight of ideas. rambling. Making bizarre statements at times. Pt stated, I see the world in colors. This place should be more colorful. They ignore it. Increase Invega to 6mg PO bedtime Increase [place] to 600mg PO bedtime. Change: Seroquel to 50mg PO BID PRN 10/29: Pt reports feeling good today; continues tangential, flight of ideas. rambling. Pt stated, I think since 2019 I've been in one big psychosis with all these psych wards and all I'm doing is wearing my outfit. And my family is the [place]; a dysfunctional [place] . Continue current tx plan. 10/30: Pt continues tangential, flight of ideas. rambling. Discussed argument with peer last evening. Pt stated, I'm feeling on edge from yesterday. My peer was walking around calling me faggot, while staring at me. A movie was on with Sir Joby Davis; he's a villarreal with a K. So I flipped him off like in the movie [employer]. He then poured the milk on me . Increase Invega to 9mg PO bedtime. 10/31: Pt continues tangential, flight of ideas. rambling. Interrupting T/W multiple times during conversation. Pt reports feeling good ; pt stated, I slept well last night. I don't want to take a long acting injection while I'm in the hospital. I want to discuss it with Dr. Castro. I will show my mother I am not psychotic by my actions and not my words . denies SI/HI/VH/AH. Valporic acid level 103.0 [place] level 0.47 Increased [place] to 900mg PO bedtime. 11/02 episode of ovreall shakiness, on exam--> bilat action tremors, more pronounced on left side. mild cogwheel on left, minimal to non on right. No inducible myoclonus or spontaneous myoclonus to explain overall shakiness otherwise, much improved since admission. 11/03 continue tx. Reason for continued inpatient stay Substantial Risk for: inability to function Time Spent With Patient Time: Total time managing care of this patient today ____ minutes.
[2023-11-03 20:04] VITALS: BP 160/78; PULSE 102; RESP 18; TEMP 37.1
[2023-11-03] MEDS: Lithium Carbonate ER 450 MG TABLET.ER 900 MG PO (20:59)
[2023-11-03] MEDS: Paliperidone ER 9 MG TAB.ER.24 PO (20:59)
[2023-11-03] MEDS: Divalproex Sodium ER 500 MG TAB.ER.24H 1500 MG PO (20:59)
[2023-11-03] MEDS: QUEtiapine Fumarate 100 MG TABLET PO (22:41)
[2023-11-04 07:50] VITALS: BP 120/58; PULSE 64; RESP 16; TEMP 36.3; O2SAT 99
[2023-11-04] MEDS: amLODIPine Besylate 5 MG TABLET PO (08:40)
[2023-11-04 08:47] VITALS: BP 122/80
[2023-11-04 10:50] VITALS: BP 124/70
[2023-11-04] MEDS: SUMAtriptan succinate 100 MG TABLET PO (10:53)
[2023-11-04] MEDS: Propranolol HCL 20 MG TABLET PO ×2 (10:55→21:23)
[2023-11-04 18:59] LABS: Valproate 69.4 mcg/mL (50.0-100.0)
[2023-11-04 19:01] LABS: Alanine Aminotransferase 14 U/L (0-40); Albumin Level 4.5 g/dL (3.5-5.0); Alkaline Phosphatase 66 U/L (39-117); Anion Gap 17 (12-20); Aspartate Amino Transferase 16 U/L (5-37); Bilirubin Total 0.3 mg/dL (0.0-1.0); Blood Urea Nitrogen 12 mg/dL (9-16); Calcium 9.6 mg/dL (8.4-10.2); Carbon Dioxide 26 mmol/L (22-29); Chloride 102 mmol/L (96-108); Creatinine Clr Calc Pharmacy 184.5; Estimated Glomerular Filt Rate > 60; Glucose Random 89 mg/dL (60-115); Potassium 4.3 mmol/L (3.3-5.1); Sodium 141 mmol/L (135-145); Total Protein 7.5 g/dL (6.5-8.0)
[2023-11-04 19:22] LABS: TSH reflex Free T4 1.74 uIU/mL (0.32-4.0)
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
[2023-11-04] MEDS: Paliperidone ER 9 MG TAB.ER.24 PO (21:22)
[2023-11-04] MEDS: Divalproex Sodium ER 500 MG TAB.ER.24H 1500 MG PO (21:22)
[2023-11-04] MEDS: Lithium Carbonate ER 450 MG TABLET.ER 900 MG PO (21:22)
[2023-11-04 21:25] VITALS: BP 148/60; PULSE 101; RESP 16; TEMP 36.4; O2SAT 97
[2023-11-05 07:27] VITALS: BP 120/58; PULSE 76; RESP 16; TEMP 36.1; O2SAT 99
[2023-11-05 08:00] VITALS: BP 110/58
[2023-11-05] MEDS: amLODIPine Besylate 5 MG TABLET PO (08:04)
[2023-11-05] MEDS: Propranolol HCL 20 MG TABLET PO ×2 (08:04→20:45)
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
[2023-11-05] MEDS: Lithium Carbonate ER 450 MG TABLET.ER 900 MG PO (20:44)
[2023-11-05] MEDS: Divalproex Sodium ER 500 MG TAB.ER.24H 1500 MG PO (20:45)
[2023-11-05] MEDS: Paliperidone ER 9 MG TAB.ER.24 PO (20:46)
[2023-11-05 20:50] VITALS: BP 130/62; PULSE 77; RESP 18; TEMP 36.4; O2SAT 98
[2023-11-06 06:00] VITALS: BP 149/59; PULSE 78; RESP 18; TEMP 36.5; O2SAT 98
[2023-11-06] MEDS: Propranolol HCL 20 MG TABLET PO ×2 (08:22→20:07)
[2023-11-06] MEDS: amLODIPine Besylate 5 MG TABLET PO (08:22)
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
[2023-11-06 19:53] VITALS: BP 160/58; PULSE 76; RESP 18; TEMP 36.7; O2SAT 98
[2023-11-06] MEDS: Lithium Carbonate ER 450 MG TABLET.ER 900 MG PO (20:07)
[2023-11-06] MEDS: QUEtiapine Fumarate 100 MG TABLET PO (20:07)
[2023-11-06] MEDS: Divalproex Sodium ER 500 MG TAB.ER.24H 1500 MG PO (20:07)
[2023-11-06] MEDS: Paliperidone ER 9 MG TAB.ER.24 PO (20:07)
[2023-11-07 07:00] VITALS: BMI 65.8
[2023-11-07] MEDS: Propranolol HCL 20 MG TABLET PO ×2 (08:27→21:00)
[2023-11-07] MEDS: amLODIPine Besylate 5 MG TABLET PO (08:27)
[2023-11-07 09:00] VITALS: BP 134/64; PULSE 76; RESP 20; TEMP 36.8; O2SAT 98
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
[2023-11-07 20:55] VITALS: BP 138/60; PULSE 74; RESP 16; TEMP 36.3; O2SAT 97
[2023-11-07] MEDS: Divalproex Sodium ER 500 MG TAB.ER.24H 1500 MG PO (21:00)
[2023-11-07] MEDS: Paliperidone ER 9 MG TAB.ER.24 PO (21:00)
[2023-11-07] MEDS: QUEtiapine Fumarate 100 MG TABLET PO (21:00)
[2023-11-07] MEDS: Lithium Carbonate ER 450 MG TABLET.ER 900 MG PO (21:00)
[2023-11-08 07:15] VITALS: BP 104/58; PULSE 54; RESP 16; TEMP 36.3; O2SAT 97
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
[2023-11-08 09:59] VITALS: BP 132/68
[2023-11-08] MEDS: Propranolol HCL 20 MG TABLET PO ×2 (10:00→20:58)
[2023-11-08] MEDS: Lithium Carbonate ER 450 MG TABLET.ER 900 MG PO (20:57)
[2023-11-08] MEDS: Paliperidone ER 9 MG TAB.ER.24 PO (20:58)
[2023-11-08] MEDS: Divalproex Sodium ER 500 MG TAB.ER.24H 1500 MG PO (20:58)
[2023-11-08 20:59] VITALS: BP 144/68; PULSE 73; RESP 14; TEMP 36.2; O2SAT 98
[2023-11-08] MEDS: diphenhydrAMINE HCL 25 MG CAPSULE 50 MG PO (21:11)
[2023-11-09 08:20] VITALS: BP 126/68; PULSE 74; RESP 18; TEMP 36.7; O2SAT 98
[2023-11-09] MEDS: Propranolol HCL 20 MG TABLET PO (08:51)
--- NOTE | 2023-11-09 10:36 | PC.NURSE ---
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 At 09:11 TW was informed and attempted to return call to mother and explain that pt is scheduled for discharge today, she was aware , and he would get the NEWMAN from his community provider according to [employer] and SW notes. Mom didn't answer and a message was left. Mom returned call at [phone] and voiced her concerns. TW explained the d/c process, the communication that occurred throughout the week and how detrimental not picking him up could be. Mother is insistent that he receive the NEWMAN, and she receive a call from the provider. Mother said she realized that the insurance ended and that Jacky was feeling better, but is concerned for the watermaster. Mother says there isn't a MD in the community that can provide the NEWMAN. Mothers call was then transferred to speak with her son at her request. was then transfer.
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
[2023-11-09] MEDS: Paliperidone Palmitate 234 MG/1.5 ML SYRINGE IM (12:35)
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
== END 2023-11-09 16:10 | disposition home or self-care (01) | DRG 753 ==
LOC: HO.ED 10-10 11:10 → HO.PADLT16 10-10 11:47
PROVIDERS: Emergency Medicine; Emergency Medicine Emergency Medical Services; Social Worker; Admitting Provider Registered Nurse; Emergency Provider Emergency Medicine; Responsible Provider Registered Nurse; Visit Provider Psychiatry & Neurology Psychiatry
DX: F31.12 Bipolar disorder, current episode manic without psychotic features, moderate (principal); U07.1 COVID-19; F17.210 Nicotine dependence, cigarettes, uncomplicated; I10 Essential (primary) hypertension; Z91.51 Personal history of suicidal behavior; Z71.6 Tobacco abuse counseling; Z79.899 Other long term (current) drug therapy
CPT/HCPCS: 36415; 80048; 80051; 80053; 80061; 80076; 80164; 80178; 80307; 81003; 82140; 82550; 82565; 83735; 84443; 84520; 85025; 87635; 93005; 99285; J2426; S9485

== ENCOUNTER → 2023-10-08 07:57 | Outpatient (BNV) | payer OTHER, SELFPAY | PROVIDERS: Emergency Provider Emergency Medicine Emergency Medical Services; Visit Provider Social Worker | DX: F31.12 Bipolar disorder, current episode manic without psychotic features, moderate (principal) | CPT/HCPCS: 90792; 99222; 99231; 99232; 99238; 99499 ==

== ENCOUNTER → 2023-10-10 08:41 | Outpatient (BNV) | payer OTHER, SELFPAY | PROVIDERS: Admitting Provider Registered Nurse; Emergency Provider Emergency Medicine; Visit Provider Internal Medicine Cardiovascular Disease | DX: I49.9 Cardiac arrhythmia, unspecified (principal) | CPT/HCPCS: 93010 ==

== ENCOUNTER → 2023-10-10 11:42 | Outpatient (BNV) | payer SELFPAY | PROVIDERS: Admitting Provider Registered Nurse; Emergency Provider Emergency Medicine; Responsible Provider Registered Nurse; Visit Provider Psychiatry & Neurology Psychiatry | DX: F31.12 Bipolar disorder, current episode manic without psychotic features, moderate (principal) | CPT/HCPCS: 99232 ==